=== PATIENT | female | born 1955 | race Caucasian/White ===

== ENCOUNTER 2016-04-18 19:26 | Inpatient (IN) | payer MEDICARE ==
[~2016-04-18] VITALS: Ht 167.6 cm; Wt 62.0 kg
[~2016-04-18 19:26] MED LIST: AUGM500T7 PO; FURO40TA PO; GABA250S PO; OXYC1TAB13 PO; PANT20 PO; POTA-243 PO
[2016-04-18 19:31] VITALS: BP 122/74; PULSE 98; RESP 16; TEMP 98.1; O2SAT 94
[2016-04-18 23:04] VITALS: BP 141/64; PULSE 93; RESP 25; TEMP 98.5; O2SAT 95
[2016-04-19] VITALS (18 sets, daily range): BP systolic 87–144; BP diastolic 53–75; PULSE 83–100; RESP 16–20; TEMP 96.7–98.5; O2SAT 93–100
[2016-04-19] MEDS ORDERED: RESP: ALBUTEROL 2.5 MG/IPRATROPIUM 0.5 MG NEB (SCH) INH ONE
--- NOTE | 2016-04-19 00:01 | PD ---
HPI Chief Complaint: Respiratory Symptoms Time Seen by Provider: 23:34 Travel History International Travel<30 days: No Contact w/Intl Traveler<30days: No Traveled to known affect area: No History of Present Illness HPI 61-year-old female complains of shortness of breath and increasing swelling and pain bilateral low extremity. Patient has history of chronic ulcers lesions bilateral lower leg and left foot. Patient has been seen by wound care center and personal physician and on antibiotics in the past. Patient was seen by personal physician today and antibiotics was called into a pharmacy however patient has not started on them yet. Patient states that she has increasing dyspnea on exertion the past 2 days. Patient denies any coughing congestion fever chills. Patient states that she has wheezing for the past 2 days. Patient states that she smoked for 15 years and recently quit smoking. Patient denies any history of COPD. Patient denies any chest pain. Patient denies abdominal pain. Patient denies any nausea vomiting diarrhea. PFSH Past Medical History Autoimmune Disease: Yes (VASCULITIS, CONNECTIVE TISSUE DISEASE) Anxiety: No Depression: No Heart Rhythm Problems: No Cancer: No Cardiovascular Problems: Yes (PVD, STASIS ULCERS) High Cholesterol: No Chest Pain: No Congestive Heart Failure: No Cirrhosis: Yes Cerebrovascular Accident: No Diabetes: No Diminished Hearing: No Endocrine: No Gastrointestinal Disorders: Yes GERD: Yes Genitourinary: Yes Headaches: No Hiatal Hernia: Yes Immune Disorder: Yes (RAYNAUDS, SLERODERMA, LUPUS) Kidney Stones: No Musculoskeletal: No Neurologic: Yes (neuropathy) Psychiatric: No Reproductive: No Respiratory: No Migraines: No Renal Failure: No Seizures: No Thyroid Disease: No Ulcer: No Menopausal: Yes Past Surgical History Abdominal Surgery: No Cardiac Surgery: No Genitourinary Surgery: No Thoracic Surgery: No Tonsillectomy: Yes Other Surgery: Yes (tonsilectomy) Social History Alcohol Use: No Tobacco Use: No (QUIT 02/02) Substance Use: No Allergies-Medications (Allergen,Severity, Reaction): Coded Allergies: Vancomycin (Verified Allergy, Severe, HIVES, 04/18/16) Cleocin (Verified Allergy, Intermediate, loose stool and diarrhea, ) Minipress (Verified Allergy, Mild, ANXIETY, 04/18/16) Sulfa (Verified Allergy, Unknown, UNKNOWN, 04/18/16) Rocephin (Verified Adverse Reaction, Mild, ANXIETY, 04/18/16) *MDRO Multi-Drug Resistant Organism (Verified Adverse Reaction, Unknown, 04/18/16) MRSA (leg wound) - 10/05/2015, ESBL+Klebsiella Pneumoniae (leg-01/18/16) Reported Meds & Prescriptions Reported Meds & Active Scripts Active Augmentin (Amoxicillin-Clavulanate) 500-125 mg Tab 500 Mg PO BID Reported Protonix (Pantoprazole Sodium) 20 Mg Tab 20 Mg PO DAILY Neurontin Liq (Gabapentin) 250 Mg/5 Ml Soln 600 Mg PO TID Klor-Con 10 (Potassium Chloride) 10 Meq Tab 10 Meq PO DAILY Furosemide 40 Mg Tab 40 Mg PO DAILY Roxicodone (Oxycodone HCl) 5 Mg Tab 5 Mg PO Q4H PRN Review of Systems General / Constitutional: No: Fever Eyes: No: Visual changes HENT: No: Headaches Cardiovascular: No: Chest Pain or Discomfort Respiratory: Positive: Shortness of Breath, Wheezing Gastrointestinal: No: Abdominal Pain Genitourinary: No: Dysuria Musculoskeletal: Positive: Pain Skin: No Rash Neurologic: No: Weakness Psychiatric: No: Depression Endocrine: No: Polydipsia Hematologic/Lymphatic: No: Easy Bruising Physical Exam Narrative GENERAL: Well-nourished, well-developed patient. SKIN: Warm and dry. HEAD: Normocephalic. EYES: No scleral icterus. No injection or drainage. NECK: Supple, trachea midline. No JVD or lymphadenopathy. CARDIOVASCULAR: Regular rate and rhythm without murmurs, gallops, or rubs. RESPIRATORY: Breath sounds equal bilaterally. No accessory muscle use. Patient has mild expiratory wheezes bilaterally. Few rhonchi at the bases. GASTROINTESTINAL: Abdomen soft, non-tender, nondistended. MUSCULOSKELETAL: No cyanosis, or edema. BACK: Nontender without obvious deformity. No CVA tenderness. Patient has an ulcer lesion dorsal aspect left foot. Patient has bilateral +2 pitting edema lower extremity. Patient has ulcer lesions bilateral lower extremity. Data Data Last Documented VS Vital Signs Date Time Temp Pulse Resp B/P Pulse Ox O2 Delivery O2 Flow Rate FiO2 04/18/16 23:04 98.5 93 25 141/64 95 Nasal Cannula 3 Orders Electrocardiogram (04/18/16 23:48) Complete Blood Count With Diff (04/18/16 23:48) Comprehensive Metabolic Panel (04/18/16 23:48) Creatine Kinase (Cpk) (04/18/16 23:48) Troponin I (04/18/16 23:48) B-Type Natriuretic Peptide (04/18/16 23:48) Prothrombin Time / Inr (Pt) (04/18/16 23:48) Act Partial Throm Time (Ptt) (04/18/16 23:48) Blood Culture (04/18/16 23:48) Urinalysis - C+S If Indicated (04/18/16 23:48) Chest, Single Ap (04/18/16 23:48) Iv Access Insert/Monitor (04/18/16 23:48) Ecg Monitoring (04/18/16 23:48) Oximetry (04/18/16 23:48) Albuterol-Ipratropium Neb (Duoneb Neb) (04/19/16 00:00) Us Leg Venous Doppler Bilat (04/18/16 23:48) Foot, Complete (Yni0lug) (04/18/16 23:48) Morphine Inj (Morphine Inj) (04/19/16 01:00) Ondansetron Inj (Zofran Inj) (04/19/16 01:00) Labs Laboratory Tests Test 04/18/16 23:45 White Blood Count 4.0 TH/MM3 Red Blood Count 3.39 MIL/MM3 Hemoglobin 10.5 GM/DL Hematocrit 31.9 % Mean Corpuscular Volume 94.2 FL Mean Corpuscular Hemoglobin 31.0 PG Mean Corpuscular Hemoglobin 33.0 % Concent Red Cell Distribution Width 17.5 % Platelet Count 124 TH/MM3 Mean Platelet Volume 8.1 FL Neutrophils (%) (Auto) 69.0 % Lymphocytes (%) (Auto) 14.7 % Monocytes (%) (Auto) 8.0 % Eosinophils (%) (Auto) 7.5 % Basophils (%) (Auto) 0.8 % Neutrophils # (Auto) 2.8 TH/MM3 Lymphocytes # (Auto) 0.6 TH/MM3 Monocytes # (Auto) 0.3 TH/MM3 Eosinophils # (Auto) 0.3 TH/MM3 Basophils # (Auto) 0.0 TH/MM3 CBC Comment DIFF FINAL Differential Comment Prothrombin Time 12.7 SEC Prothromb Time International 1.1 RATIO Ratio Activated Partial 29.4 SEC Thromboplast Time Sodium Level 140 MEQ/L Potassium Level 3.3 MEQ/L Chloride Level 105 MEQ/L Carbon Dioxide Level 26.9 MEQ/L Anion Gap 8 MEQ/L Blood Urea Nitrogen 17 MG/DL Creatinine 0.84 MG/DL Estimat Glomerular Filtration 69 ML/MIN Rate Random Glucose 112 MG/DL Calcium Level 7.8 MG/DL Total Bilirubin 0.8 MG/DL Aspartate Amino Transf 33 U/L (AST/SGOT) Alanine Aminotransferase 18 U/L (ALT/SGPT) Alkaline Phosphatase 101 U/L Total Creatine Kinase 66 U/L Troponin I LESS THAN 0.02 NG/ML B-Type Natriuretic Peptide 223 PG/ML Total Protein 6.2 GM/DL Albumin 2.4 GM/DL [facility] Medical Decision Making Medical Screen Exam Complete: Yes Emergency Medical Condition: Yes Interpretation(s) 2 31 AM. Last Impressions Lower Extremity Ultrasound 04/18/162347 Signed Impressions: Service Date/Time: Tuesday, April 19, 2016 00:31 - CONCLUSION: No DVT in either lower extremity. Floyd Naqvi MD Foot X-Ray 04/18/162347 Signed Impressions: Service Date/Time: March 23:56 - CONCLUSION: Diffuse soft tissue swelling. No periosteal reaction or fracture. Possible linear foreign body along the great toe Floyd Naqvi MD Chest X-Ray 04/18/162347 Signed Impressions: Service Date/Time: March 23:49 - CONCLUSION: 1. Left upper lobe and right lower lobe airspace disease likely pneumonia. 2. Small right pleural effusion. Floyd Naqvi MD 2 32 AM. CBC CBC 4.0. Hemoglobin 10.5 hematocrit 31.9. Platelet 124. Normal differential. Potassium 3.3. Cardiac enzymes are normal. BNP 223. Differential Diagnosis Differential diagnosis including acute exacerbation of reactive airway disease, bronchitis, pneumonia, PE, pneumothorax, ulcers low extremity, cellulitis, osteomyelitis, DVT. Narrative Course 61-year-old female with short of breath, wheezing, bilateral lower extremity edema with ulcers lesions. History of chronic ulcers lesions lower extremity. Levaquin 750 mg IV given. Morphine 4 mg IV. Zofran 4 mg IV. Albuterol with Atrovent unit dose treatment times one. Diagnosis Primary Impression: Pneumonia Qualified Code: J18.9 - Pneumonia of both lungs due to infectious organism, unspecified part of lung Additional Impression: Foot ulcer Qualified Code: L97.521 - Foot ulcer, left, limited to breakdown of skin Admitting Information Admitting Physician Requests: Admit John Carroll MD Apr 19, 2016 00:01
[2016-04-19 00:16] LABS: AUTOMATED NEUTROPHIL # 2.8 TH/MM3 (1.8-7.7); BASOPHIL % 0.8 % (0.0-2.0); EOSINOPHIL # 0.3 TH/MM3 (0-0.4); EOSINOPHIL % 7.5 % (0.0-4.0); HEMATOCRIT 31.9 % (35.0-46.0); HEMO FLAGS DIFF FINAL; LYMPH % 14.7 % (9.0-44.0); LYMPHOCYTE # 0.6 TH/MM3 (1.0-4.8); MEAN CELL VOLUME 94.2 FL (80.0-100.0); PLATELET COUNT 124 TH/MM3 (150-450); RED BLOOD COUNT 3.39 MIL/MM3 (4.00-5.30); RED CELL DISTRIBUTION WIDTH 17.5 % (11.6-17.2)
--- NOTE | 2016-04-19 00:21 | RADRPT ---
EXAM DATE/TIME: 04/18/2016 23:49 [facility] COMPARISON: CHEST SINGLE AP, October 05, 2015, 17:44. INDICATIONS : Pt short of breath x 2 days. MEDICAL HISTORY : None. SURGICAL HISTORY : Esophogeal dilation ENCOUNTER: Initial ACUITY: 2 days PAIN SCORE: 6/10 LOCATION: Bilateral chest FINDINGS: A single view of the chest demonstrates left upper lobe and right lower lobe consolidation. Small rig ht pleural effusion. Heart is large. The cardiomediastinal contours are unremarkable. Osseous struct ures are intact. CONCLUSION: 1. Left upper lobe and right lower lobe airspace disease likely pneumonia. 2. Small right pleural effusion. Folyd Naqvi MD on April 19, 2016 at 0:18 Board Certified Radiologist. This report was verified electronically.
--- NOTE | 2016-04-19 00:24 | RADRPT ---
EXAM DATE/TIME: 04/18/2016 23:56 [facility] COMPARISON: No previous studies available for comparison. INDICATIONS : Pt has ulcer to posterior foot. MEDICAL HISTORY : Hypertension. Cirrhosis. Peripheral vascular disease. Crest syndrome. SURGICAL HISTORY : Tonsillectomy. Esophageal varices banding x 2. Vein stripping. Right Lower ENCOUNTER: Initial ACUITY: 1 month PAIN SCORE: 8/10 LOCATION: Left FOOT FINDINGS: Three view examination of the left foot demonstrates soft tissue swelling without dislocation or frac ture. The tarsal bones appear intact. The interphalangeal and metatarsophalangeal joints are intac t. The calcaneus is intact. Bony mineralization is normal. CONCLUSION: Diffuse soft tissue swelling. No periosteal reaction or fracture. Possible linear foreign body along the great toe Floyd Naqvi MD on April 19, 2016 at 0:19 Board Certified Radiologist. This report was verified electronically.
[2016-04-19 00:32] LABS: APTT (PATIENT) 29.4 SEC (24.3-30.1); INTERNATIONAL NORMALIZED RATIO 1.1 RATIO; PROTHROMBIN TIME - PATIENT 12.7 SEC (9.8-11.6)
[2016-04-19] MEDS ORDERED: ONDANSETRON HCL 4 MG/2 ML VIAL IV PUSH ONE (01:00)
[2016-04-19] MEDS ORDERED: MORPHINE SULFATE 4 MG/ML INJ IV PUSH ONE (01:00)
--- NOTE | 2016-04-19 01:02 | RADRPT ---
EXAM DATE/TIME: 04/19/2016 00:31 [facility] COMPARISON: No previous studies available for comparison. INDICATIONS : Bilateral leg pain and edema. MEDICAL HISTORY : Gastroesophageal reflux disease. Peripheral vascular disease. Cirrhosis. Raynaud's. lupus. vasculit is. SURGICAL HISTORY : Tonsillectomy. Esophageal varices surgery. ENCOUNTER: Subsequent ACUITY: >1 year PAIN SCORE: 5/10 LOCATION: Bilateral legs. TECHNIQUE: Venous ultrasound of the left and right leg was performed from the inguinal ligament to the proximal calf. Real-time, color Doppler and spectral tracing, compression and augmentation techniques were us ed. FINDINGS: RIGHT LEG: There is normal compressibility of the deep venous system from the inguinal region to the proximal ca lf. No echogenic clot is seen in the lumen of the common femoral, femoral, popliteal, and posterior tibial veins. There is a normal response of the venous system to proximal and distal augmentation an d respiration. Edematous soft tissues are seen. LEFT LEG: There is normal compressibility of the deep venous system from the inguinal region to the proximal ca lf. No echogenic clot is seen in the lumen of the common femoral, femoral, popliteal, and posterior tibial veins. There is a normal response of the venous system to proximal and distal augmentation an d respiration. Edematous soft tissues are seen. CONCLUSION: No DVT in either lower extremity. Floyd Naqvi MD on April 19, 2016 at 1:00 Board Certified Radiologist. This report was verified electronically.
[2016-04-19 01:03] LABS: ANION GAP 8 MEQ/L (5-15); AST (GOT) 33 U/L (15-37); BICARBONATE 26.9 MEQ/L (21.0-32.0); BLOOD UREA NITROGEN 17 MG/DL (7-18); CHLORIDE 105 MEQ/L (98-107); GLOMERULAR FILTRATION RATE 69 ML/MIN (>89); POTASSIUM 3.3 MEQ/L (3.5-5.1); SODIUM (NA) 140 MEQ/L (136-145)
[2016-04-19 01:07] LABS: ALKALINE PHOSPHATASE 101 U/L (45-117); ALT (GPT) 18 U/L (10-53); TOTAL BILIRUBIN ADULT 0.8 MG/DL (0.2-1.0)
[2016-04-19 01:08] LABS: CREATINE KINASE 66 U/L (26-192)
[2016-04-19] MEDS ORDERED: POTASSIUM CHLORIDE 20 MEQ CONTROLLED RELEASE TAB PO ONE ×2 (02:45→08:00)
[2016-04-19] MEDS ORDERED: LEVOFLOXACIN 750 MG PREMIX INJ 150 ML IV ONE (02:45)
[2016-04-19] MEDS ORDERED: ONDANSETRON HCL 4 MG/2 ML VIAL IV PRN (03:00)
[2016-04-19] MEDS ORDERED: ACETAMINOPHEN 325 MG TAB PO PRN ×2 (03:00→07:45)
[2016-04-19] MEDS ORDERED: SODIUM CHLORIDE 0.9% FLUSH 5 ML FLUSH IVF PRN (03:00)
[2016-04-19] MEDS: MORPHINE SULFATE 4 MG/ML INJ IV PUSH PRN ×4 (04:20→22:02)
[2016-04-19] MEDS ORDERED: ONDANSETRON HCL 4 MG/2 ML VIAL IVP PRN (07:45)
[2016-04-19] MEDS ORDERED: NALOXONE HCL 0.4 MG/ML AMP IV PRN (07:45)
[2016-04-19] MEDS ORDERED: ZOLPIDEM TARTRATE 5 MG TAB PO PRN (07:45)
[2016-04-19] MEDS ORDERED: MAGNESIUM HYDROXIDE SUSP 30 ML CUP PO PRN (07:45)
[2016-04-19] MEDS ORDERED: SENNOSIDES 8.6 MG TAB PO PRN (07:45)
[2016-04-19] MEDS ORDERED: BISACODYL 10 MG SUPP PR PRN (07:45)
[2016-04-19] MEDS ORDERED: ENALAPRILAT 2.5 MG/2 ML VIAL IV PUSH PRN (08:00)
[2016-04-19] MEDS: ENOXAPARIN SODIUM 40 MG/0.4 ML SYRINGE SQ SCH (08:00)
[2016-04-19] MEDS ORDERED: cloNIDine HCL 0.1 MG TAB PO PRN (08:00)
[2016-04-19] MEDS ORDERED: LORazepam 0.5 MG TAB PO PRN (08:00)
--- NOTE | 2016-04-19 08:06 | HHI.HP ---
History of Present Illness Primary Care Physician Steven Navarro MD Admission Diagnosis pneumonia. Foot ulcer Diagnoses: (1) Severe sepsis (2) Pneumonia (3) Foot ulcer (4) History of esophageal varices (5) Pancytopenia (6) Peripheral vascular disease (7) Hypertension (8) Protein-calorie malnutrition, moderate (9) Noncompliance (10) Cirrhosis (11) Peripheral neuropathy (12) Lupus (systemic lupus erythematosus) (13) CREST (calcinosis, Raynaud's phenomenon, esophageal dysfunction, sclerodactyly, telangiectasia) (14) Venous stasis ulcer (15) Cellulitis of right lower extremity (16) Tobacco use (17) Anemia History of Present Illness 61 Y CF, INCREASED EDEMA RECENTLY. RECENTLY QUIT SMOKING. HAS HAD GENERAL DECLINE OVER THE LAST YEAR. NUMEROUS HOSPITAL ADMISSIONS. OUTPT WOUND CLINIC PT OF DR FELDMAN. DEVELOPED INCREASED CONGESTION THIS WEEK WELL. PT FELT MALAISED AND PRESENTED TO THE ER. I WAS CALLED BY THE ER MD FOR ADMISSION DUE TO PNA AND CELLULITIS OF THE LEGS. Sepsis Criteria SIRS Criteria (2 or more): Heart rate over 90 Sepsis Criteria (SIRS+source): Infect source susp/known Severe Sepsis (+one): Hypotension Criteria Outcome: Meets severe sepsis criteria Review of Systems Constitutional: COMPLAINS OF: Fatigue Other -14 POINT ROS EXCEPT ABOVE. Past Family Social History Allergies: Coded Allergies: Vancomycin (Verified Allergy, Severe, HIVES, 04/18/16) Cleocin (Verified Allergy, Intermediate, loose stool and diarrhea, ) Minipress (Verified Allergy, Mild, ANXIETY, 04/18/16) Sulfa (Verified Allergy, Unknown, UNKNOWN, 04/18/16) Rocephin (Verified Adverse Reaction, Mild, ANXIETY, 04/18/16) *MDRO Multi-Drug Resistant Organism (Verified Adverse Reaction, Unknown, 04/18/16) MRSA (leg wound) - 10/05/2015, ESBL+Klebsiella Pneumoniae (leg-01/18/16) Past Medical History CREST LUPUS Past Surgical History NC Reported Medications Current Medications Medications (Trade) Dose Ordered Sig/Jose M Route Start Time Stop Time Status Last Admin (Zofran Inj) 4 mg Q6H PRN IV 04/19/16 03:00 (Tylenol) 650 mg Q4H PRN PO 04/19/16 03:00 (NS Flush) 2 ml BID IVF 04/19/16 09:00 (NS Flush) 2 ml UNSCH PRN IVF 04/19/16 03:00 (Morphine Inj) 4 mg Q3H PRN IV PUSH 04/19/16 03:00 04/19/16 04:20 (Pneumovax-23 Inj) 25 mcg ONCE ONCE IM 04/20/16 10:00 04/20/16 10:01 Family History NC Social History CIGS, NO E/D; DISABLED Physical Exam Vital Signs Vital Signs Date Time Temp Pulse Resp B/P Pulse Ox O2 Delivery O2 Flow Rate FiO2 04/19/16 04:36 99 04/19/16 04:28 16 04/19/16 04:13 98.2 95 16 109/61 94 04/19/16 03:31 94 18 100 Nasal Cannula 2 04/19/16 03:30 98.5 94 18 101/62 100 Room Air 2 04/19/16 03:20 18 04/19/16 03:18 96 Nasal Cannula 2 04/19/16 03:04 95 Nasal Cannula 3.00 04/19/16 02:00 92 18 97/57 96 Nasal Cannula 2 04/19/16 01:00 96 18 112/60 94 Room Air 04/19/16 00:00 94 18 144/75 97 Nasal Cannula 3 04/18/16 23:04 98.5 93 25 141/64 95 Nasal Cannula 3 04/18/16 19:31 98.1 98 16 122/74 94 Room Air Physical Exam GENERAL: This is a well-nourished, well-developed patient, in no apparent distress. SKIN: No rashes, ecchymoses or lesions. Cool and dry. HEAD: Atraumatic. Normocephalic. No temporal or scalp tenderness. EYES: Pupils equal round and reactive. Extraocular motions intact. No scleral icterus. No injection or drainage. ENT: Nose without bleeding, purulent drainage or septal hematoma. Throat without erythema, tonsillar hypertrophy or exudate. Uvula midline. Airway patent. NECK: Trachea midline. No JVD or lymphadenopathy. Supple, nontender, no meningeal signs. CARDIOVASCULAR: Regular rate and rhythm without murmurs, gallops, or rubs. RESPIRATORY: Clear to auscultation. Breath sounds equal bilaterally. No wheezes , rales, or rhonchi. GASTROINTESTINAL: Abdomen soft, non-tender, nondistended. No hepato-splenomegaly , or palpable masses. No guarding. MUSCULOSKELETAL: Extremities without clubbing, cyanosis, or edema. No joint tenderness, effusion, or edema noted. No calf tenderness. Negative Homans sign bilaterally. NEUROLOGICAL: Awake and alert. Cranial nerves II through XII intact. Motor and sensory grossly within normal limits. Five out of 5 muscle strength in all muscle groups. Normal speech. Laboratory Laboratory Tests Test 04/18/16 23:45 White Blood Count 4.0 Red Blood Count 3.39 Hemoglobin 10.5 Hematocrit 31.9 Mean Corpuscular Volume 94.2 Mean Corpuscular Hemoglobin 31.0 Mean Corpuscular Hemoglobin 33.0 Concent Red Cell Distribution Width 17.5 Platelet Count 124 Mean Platelet Volume 8.1 Neutrophils (%) (Auto) 69.0 Lymphocytes (%) (Auto) 14.7 Monocytes (%) (Auto) 8.0 Eosinophils (%) (Auto) 7.5 Basophils (%) (Auto) 0.8 Neutrophils # (Auto) 2.8 Lymphocytes # (Auto) 0.6 Monocytes # (Auto) 0.3 Eosinophils # (Auto) 0.3 Basophils # (Auto) 0.0 CBC Comment DIFF FINAL Differential Comment Prothrombin Time 12.7 Prothromb Time International 1.1 Ratio Activated Partial 29.4 Thromboplast Time Sodium Level 140 Potassium Level 3.3 Chloride Level 105 Carbon Dioxide Level 26.9 Anion Gap 8 Blood Urea Nitrogen 17 Creatinine 0.84 Estimat Glomerular Filtration 69 Rate Random Glucose 112 Calcium Level 7.8 Total Bilirubin 0.8 Aspartate Amino Transf 33 (AST/SGOT) Alanine Aminotransferase 18 (ALT/SGPT) Alkaline Phosphatase 101 Total Creatine Kinase 66 Troponin I LESS THAN 0.02 B-Type Natriuretic Peptide 223 Total Protein 6.2 Albumin 2.4 Date/Time Procedure Status Source Growth 04/19/16 00:10 Aerobic Blood Culture Received Blood Peripheral Pending 04/19/16 00:10 Anaerobic Blood Culture Received Blood Peripheral Pending Result Diagram: 04/18/16234404/18/162344 Imaging Last 48 hours Impressions Lower Extremity Ultrasound 04/18/162347 Signed Impressions: Service Date/Time: Tuesday, April 19, 2016 00:31 - CONCLUSION: No DVT in either lower extremity. Floyd Naqvi MD Foot X-Ray 04/18/162347 Signed Impressions: Service Date/Time: March 23:56 - CONCLUSION: Diffuse soft tissue swelling. No periosteal reaction or fracture. Possible linear foreign body along the great toe Floyd Naqvi MD Chest X-Ray 04/18/168 Signed Impressions: Service Date/Time: March 23:49 - CONCLUSION: 1. Left upper lobe and right lower lobe airspace disease likely pneumonia. 2. Small right pleural effusion. Floyd Naqvi MD Assessment and Plan Problem List: (1) Severe sepsis Status: Resolved (2) Pneumonia Status: Acute (3) Cellulitis of right lower extremity Status: Acute (4) Lupus (systemic lupus erythematosus) Status: Acute (5) Azotemia Status: Acute (6) History of esophageal varices Status: Acute (7) Fever Status: Resolved (8) Pancytopenia Status: Chronic (9) Peripheral vascular disease Status: Acute (10) Hypertension Status: Acute (11) Protein-calorie malnutrition, moderate Status: Acute (12) Noncompliance Status: Acute (13) Cirrhosis Status: Chronic (14) Peripheral neuropathy Status: Acute (15) CREST (calcinosis, Raynaud's phenomenon, esophageal dysfunction, sclerodactyly, telangiectasia) Status: Chronic (16) Venous stasis ulcer Status: Acute (17) Noncompliance w/medication treatment due to intermit use of medication Status: Acute (18) Foot ulcer Status: Acute (19) Tobacco use Status: Acute (20) Anemia Status: Acute Assessment and Plan IV ABX IV STEROIDS IV LASIX DUONEBS BLOOD CULTURES WOUND CULTURES PER DR FELDMAN, HAD CULTURES YESTERDAY PER PATIENT AT WOUND CLINIC WOUND CONSULT DR FELDMAN CONSULT LOVENOX 40 QD FOR PROPHYLAXIS K REPLACEMENT FOR HYPOKALEMIA INPT ADMIT FOR THE ABOVE DX AND PLAN. EXPECT 4 D INPT STAY. PT WOULD LIKELY PASS W/O INPT ADMIT. EXPECT DC [facility]. Problem Qualifiers (1) Pneumonia: Qualified Code: J18.9 - Pneumonia of both lungs due to infectious organism, unspecified part of lung (2) Foot ulcer: Qualified Code: L97.521 - Foot ulcer, left, limited to breakdown of skin Steven Navarro MD Apr 19, 2016 08:06
[2016-04-19] MEDS: RESP: ALBUTEROL 2.5 MG/IPRATROPIUM 0.5 MG NEB (SCH) NEB ×4 (08:44→20:31)
[2016-04-19] MEDS ORDERED: SODIUM CHLORIDE 0.9% FLUSH 5 ML FLUSH IVF SCH (09:00)
[2016-04-19] MEDS: GABAPENTIN 300 MG CAP PO SCH ×3 (09:02→17:44)
[2016-04-19] MEDS: PANTOPRAZOLE SOD 20 MG DELAYED RELEASE TAB PO SCH (09:02)
[2016-04-19] MEDS: FUROSEMIDE 40 MG/4 ML VIAL IV PUSH SCH ×2 (09:02→17:44)
[2016-04-19] MEDS: SODIUM CHLORIDE 0.9% FLUSH 5 ML FLUSH FLUSH SCH ×2 (09:02→21:03)
[2016-04-19] MEDS: POTASSIUM CHLORIDE 20 MEQ CONTROLLED RELEASE TAB PO SCH (09:09)
--- NOTE | 2016-04-19 10:11 | PD.WOU.CON ---
Patient Intake Chief Complaint Bilateral lower extremity wounds Consult Requested by Dr. Navarro Reason for Consult Treatment of lower extremity wounds. Primary Care Physician Steven Navarro MD History of Present Illness Patient is a 61-year-old female well-known to me from previous wound center visits. Patient had been out of town for a number of weeks and missed multiple wound center visits. Last week I cultured her and grew out pseudomonas resistant to the quinolones, enterococcus avium and staph aureus. Patient presented to the wound center yesterday and respiratory distress. Tried to convince her to go to the emergency room at that time. She refused and presented at 2:00 this morning to the ED. Patient has a history of crest syndrome and rheumatoid arthritis. She also has cirrhosis with fluid retention. Coded Allergies: Vancomycin (Verified Allergy, Severe, HIVES, 04/18/16) Cleocin (Verified Allergy, Intermediate, loose stool and diarrhea, ) Minipress (Verified Allergy, Mild, ANXIETY, 04/18/16) Sulfa (Verified Allergy, Unknown, UNKNOWN, 04/18/16) Rocephin (Verified Adverse Reaction, Mild, ANXIETY, 04/18/16) *MDRO Multi-Drug Resistant Organism (Verified Adverse Reaction, Unknown, 04/18/16) MRSA (leg wound) - 10/05/2015, ESBL+Klebsiella Pneumoniae (leg-01/18/16) Preferred Language to Discuss: [place] Barriers to Learning: None Teaching Method: Discussion Vital Signs Date Time Temp Pulse Resp B/P Pulse Ox O2 Delivery O2 Flow Rate FiO2 04/19/16 08:52 95 21 04/19/16 08:43 98/58 04/19/16 08:21 98.0 94 18 87/55 93 04/19/16 08:00 91 04/19/16 04:36 99 04/19/16 04:28 16 04/19/16 04:13 98.2 95 16 109/61 94 04/19/16 03:31 94 18 100 Nasal Cannula 2 04/19/16 03:30 98.5 94 18 101/62 100 Room Air 2 04/19/16 03:20 18 04/19/16 03:18 96 Nasal Cannula 2 04/19/16 03:04 95 Nasal Cannula 3.00 04/19/16 02:00 92 18 97/57 96 Nasal Cannula 2 04/19/16 01:00 96 18 112/60 94 Room Air 04/19/16 00:00 94 18 144/75 97 Nasal Cannula 3 04/18/16 23:04 98.5 93 25 141/64 95 Nasal Cannula 3 04/18/16 19:31 98.1 98 16 122/74 94 Room Air Pain scale used: 0-10 numeric scale Pain score: 8 Medications Current Medications Albuterol/ Ipratropium (Duoneb Neb) 1 ampule ONCE ONCE INH Last administered on 04/18/16at 23:56; Start 04/19/16 at 00:00; Stop 04/19/16 at 00:01; Status DC Morphine Sulfate (Morphine Inj) 4 mg ONCE ONCE IV PUSH Last administered on at 01:09; Start 04/19/16 at 01:00; Stop 04/19/16 at 01:01; Status DC Ondansetron HCl (Zofran Inj) 4 mg ONCE ONCE IV PUSH Last administered on 04/19at 01:09; Start 04/19/16 at 01:00; Stop 04/19/16 at 01:01; Status DC Potassium Chloride 20 meq 20 meq ONCE ONCE PO Last administered on 04/19/16at 03:12; Start 04/19/16 at 02:45; Stop 04/19/16 at 02:46; Status DC Levofloxacin/ Dextrose (Levaquin 750 Mg Premix Inj) 150 ml @ 100 mls/hr ONCE ONCE IV Last administered on 04/19/16at 03:12; Start 04/19/16 at 02:45; Stop 04/19/16 at 04:14; Status DC Ondansetron HCl (Zofran Inj) 4 mg Q6H PRN IV NAUSEA OR VOMITING; Start at 03:00; Stop 04/19/16 at 07:54; Status DC Acetaminophen (Tylenol) 650 mg Q4H PRN PO Temp>101F, Headache; Start 04/19/16 at 03:00; Stop 04/19/16 at 07:54; Status DC IV Flush (NS Flush) 2 ml BID IVF ; Start 04/19/16 at 09:00; Stop 04/19/16 at 09:00; Status DC IV Flush (NS Flush) 2 ml UNSCH PRN IVF FLUSH AFTER USING IV ACCESS; Start at 03:00; Stop 04/19/16 at 07:54; Status DC Morphine Sulfate (Morphine Inj) 4 mg Q3H PRN IV PUSH PAIN Last administered on 04/19/16at 04:20; Start 04/19/16 at 03:00 Pneumococcal Polyvalent Vaccine (Pneumovax-23 Inj) 25 mcg ONCE ONCE IM ; Start 04/20/16 at 10:00; Stop 04/20/16 at 10:01 IV Flush (NS Flush) 2 ml UNSCH PRN FLUSH FLUSH AFTER USING IV ACCESS; Start at 07:45 IV Flush (NS Flush) 2 ml BID FLUSH Last administered on 04/19/16at 09:02; Start 04/19/16 at 09:00 Acetaminophen (Tylenol) 650 mg Q4H PRN PO TEMP > 100.4; Start 04/19/16 at 07: 45 Ondansetron HCl (Zofran Inj) 4 mg Q6H PRN IVP NAUSEA OR VOMITING; Start at 07:45 Bisacodyl (Dulcolax Supp) 10 mg DAILY PRN SD CONSTIPATION; Start 04/19/16 at 07:45 Magnesium Hydroxide (Milk Of Magnesia Liq) 30 ml Q12H PRN PO CONSTIPATION; Start 04/19/16 at 07:45 Sennosides (Senokot) 17.2 mg Q12H PRN PO CONSTIPATION; Start 04/19/16 at 07:45 Zolpidem Tartrate (Ambien) 5 mg HS PRN PO INSOMNIA; Start 04/19/16 at 07:45 Enoxaparin Sodium (Lovenox Inj) 40 mg Q24H SQ ; Start 04/19/16 at 08:00 Naloxone HCl (Narcan Inj) 0.4 mg UNSCH PRN IV SEE LABEL COMMENTS; Start at 07:45 Gabapentin (Neurontin) 600 mg TID PO Last administered on 04/19/16at 09:02; Start 04/19/16 at 09:00 Oxycodone HCl (Roxicodone) 5 mg Q4H PRN PO PAIN SCALE 4 TO 10; Start 04/19/16 at 08:00 Pantoprazole Sodium (Protonix) 20 mg DAILY PO Last administered on 04/19/16at 09:02; Start 04/19/16 at 09:00 Albuterol/ Ipratropium (Duoneb Neb) 1 ampule QID NEB NEB Last administered on 04/19/16at 08:44; Start 04/19/16 at 08:00 Lorazepam (Ativan) 0.5 mg Q8H PRN PO SEVERE ANXIETY OR AGITATION; Start at 08:00 Clonidine (Catapres) 0.1 mg Q6H PRN PO SBP>160, DBP>90; Start 04/19/16 at 08: 00 Enalaprilat (Vasotec Inj) 2.5 mg Q6H PRN IV PUSH SBP> OR = 180, DBP> OR = 100; Start 04/19/16 at 08:00 Furosemide (Lasix Inj) 40 mg BID@09,18 IV PUSH Last administered on 04/19/16at 09:02; Start 04/19/16 at 09:00 Methylprednisolone Sodium Succinate (SoluMEDROL INJ) 80 mg Q6HR IV PUSH ; Start 04/19/16 at 12:00 Potassium Chloride (KCl) 40 meq ONCE ONCE PO Last administered on 04/19/16at 09:09; Start 04/19/16 at 08:00; Stop 04/19/16 at 08:01; Status DC Potassium Chloride 20 meq 20 meq DAILY PO Last administered on 04/19/16at 09:09 ; Start 04/19/16 at 09:00 Levofloxacin/ Dextrose (Levaquin 750 Mg Premix Inj) 150 ml @ 100 mls/hr Q24H IV ; Start 04/20/16 at 03:00 Past, Family & Social History Past Medical History Gastrointestinal: REPORTS HX OF: GERD, Liver disease (Cirrhosis of the liver- 5 years), Other GI history (Enlarged Spleen) Gynecologic: REPORTS HX OF: Other psychology tech history (prolapsed uterus) Musculoskeletal: REPORTS HX OF: Rheumatoid arthritis Cancer/Hematology: REPORTS HX OF: Other cancer/hematology Infectious disease: REPORTS HX OF: Chickenpox, Measles, Mumps Integumentary: REPORTS HX OF: Other integumentary hx (Scleroderma, Raynaud's Disease) Neurologic: REPORTS HX OF: Peripheral neuropathy Psychiatric: REPORTS HX OF: Anxiety, Depression Additional past medical hx Burt syndrome Past Surgical History HEENT: REPORTS HX OF: Tonsillectomy, Other throat surgery (Esophageal Varicies) Gynecologic: DENIES HX OF: Hysterectomy Breast: DENIES HX OF: Mastectomy, bilateral, Mastectomy, left, Mastectomy, right Family Medical History Patient History: Cardiac arrhythmia G8 FATHER Kidney disease G8 FATHER Substance Use Substance use: Denies use Review of Systems Constitutional: COMPLAINS OF: Pain Cardiovascular: COMPLAINS OF: Swelling legs / ankles Respiratory: COMPLAINS OF: Difficulty breathing Wound Assessment Any changes since last week?: Hospitilization Vascular Assessment R Dorsails Pedis: Doppler L Dorsails Pedis: Doppler R Posterior Tibial: Doppler L Posterior Tibial: Doppler Extremities Evaluation: Edema Right, Edema Left Wound Information - Wound One Wound Location: Right lateral leg Wound Type: Venous Disease Classification: FT- full thickness Wound Length: 3.0 cm Wound Width: 1.0 cm Wound Depth: 0.2 cm Exudate: Low Exudate Type: Serosanguineous Debridement: No Fibrin Amount: Mild Granulation Tissue Color: [place] Granulation Tissue Texture: Firm Exposed: No exposed bone, muscle, tendon Eschar: No Odor: No Periwound Appearance: FINDINGS: Maceration Dressings: Maxorb Extra AG Wound Two Wound Location: Left dorsal foot Wound Type: Venous Disease Classification: FT- full thickness Wound Length: 2.3 cm Wound Width: 1.4 cm Wound Depth: 0.2 cm Exudate: Low Exudate Type: Serosanguineous Debridement: No Fibrin Amount: Mild Granulation Tissue Color: [place] Granulation Tissue Texture: Firm Exposed: No exposed bone, muscle, tendon Eschar: No Odor: No Periwound Appearance: FINDINGS: Normal Dressings: Maxorb Extra AG Wound Three Wound Location: Left anterior leg Physical Exam General appearance: comfortable Nutritional status: overweight Orientation: alert and oriented x3 Skin: FINDINGS: normal color Hair: normal Head: normocephalic/atraumatic Eyes: PERRL Ears, nose, mouth, throat: no ear deformities Hearing, right ear: normal Hearing, left ear: normal Hearing test method: whispered voice Neck: FINDINGS: normal Chest appearance: normal Respiratory effort: FINDINGS: normal Abdomen: FINDINGS: normal appearance exam deferred: Yes Rectal exam deferred: Yes Edema: Left lower extremity: 2+, pitting, ankle, leg Right lower extremity: 2+, pitting, ankle, leg Cranial nerves II-XII intact: Yes Mental status: grossly normal Affect: normal Judgment: normal Lab and Radiology Results Laboratory Laboratory Tests Test 04/18/16 23:45 White Blood Count 4.0 TH/MM3 Red Blood Count 3.39 MIL/MM3 Hemoglobin 10.5 GM/DL Hematocrit 31.9 % Mean Corpuscular Volume 94.2 FL Mean Corpuscular Hemoglobin 31.0 PG Mean Corpuscular Hemoglobin 33.0 % Concent Red Cell Distribution Width 17.5 % Platelet Count 124 TH/MM3 Mean Platelet Volume 8.1 FL Neutrophils (%) (Auto) 69.0 % Lymphocytes (%) (Auto) 14.7 % Monocytes (%) (Auto) 8.0 % Eosinophils (%) (Auto) 7.5 % Basophils (%) (Auto) 0.8 % Neutrophils # (Auto) 2.8 TH/MM3 Lymphocytes # (Auto) 0.6 TH/MM3 Monocytes # (Auto) 0.3 TH/MM3 Eosinophils # (Auto) 0.3 TH/MM3 Basophils # (Auto) 0.0 TH/MM3 CBC Comment DIFF FINAL Differential Comment Laboratory Tests Test 04/18/16 23:45 Sodium Level 140 MEQ/L Potassium Level 3.3 MEQ/L Chloride Level 105 MEQ/L Carbon Dioxide Level 26.9 MEQ/L Anion Gap 8 MEQ/L Blood Urea Nitrogen 17 MG/DL Creatinine 0.84 MG/DL Estimat Glomerular Filtration 69 ML/MIN Rate Random Glucose 112 MG/DL Calcium Level 7.8 MG/DL Total Bilirubin 0.8 MG/DL Aspartate Amino Transf 33 U/L (AST/SGOT) Alanine Aminotransferase 18 U/L (ALT/SGPT) Alkaline Phosphatase 101 U/L Total Creatine Kinase 66 U/L Troponin I LESS THAN 0.02 NG/ML B-Type Natriuretic Peptide 223 PG/ML Total Protein 6.2 GM/DL Albumin 2.4 GM/DL Microbiology Date/Time Procedure Status Source Growth 04/19/16 00:00 Aerobic Blood Culture Received Blood Peripheral Pending 04/19/16 00:00 Anaerobic Blood Culture Received Blood Peripheral Pending 04/19/16 00:10 Aerobic Blood Culture Received Blood Peripheral Pending 04/19/16 00:10 Anaerobic Blood Culture Received Blood Peripheral Pending Radiology Last Impressions Lower Extremity Ultrasound 04/18/16 [id number] Signed Impressions: Service Date/Time: Tuesday, April 19, 2016 00:31 - CONCLUSION: No DVT in either lower extremity. Floyd Naqvi MD Foot X-Ray 04/18/168 Signed Impressions: Service Date/Time: March 23:56 - CONCLUSION: Diffuse soft tissue swelling. No periosteal reaction or fracture. Possible linear foreign body along the great toe Floyd Naqvi MD Chest X-Ray 04/18/168 Signed Impressions: Service Date/Time: March 23:49 - CONCLUSION: 1. Left upper lobe and right lower lobe airspace disease likely pneumonia. 2. Small right pleural effusion. Floyd Naqvi MD Assessment/Plan Problem List: (1) Foot ulcer Status: Chronic (2) Cirrhosis Status: Chronic (3) Peripheral neuropathy Status: Chronic (4) Lupus (systemic lupus erythematosus) Status: Chronic (5) CREST (calcinosis, Raynaud's phenomenon, esophageal dysfunction, sclerodactyly, telangiectasia) Status: Chronic (6) Venous stasis ulcer Status: Chronic Additional Plans & Procedures PLAN: Continue Maxorb extra AG dressings to leg and foot wounds. No baths or showers. Consulted ID because of the resistant pseudomonas and other bacteria. We'll continue to follow during this admission. I will follow up once discharged in the wound center. Problem Qualifiers (1) Foot ulcer: Qualified Code: L97.522 - Foot ulcer, left, with fat layer exposed (2) Cirrhosis: Qualified Code: K74.60 - Cirrhosis of liver with ascites, unspecified hepatic cirrhosis type (3) Peripheral neuropathy: Qualified Code: G60.3 - Idiopathic progressive neuropathy (4) Lupus (systemic lupus erythematosus): Qualified Code: M32.13 - Systemic lupus erythematosus with lung involvement, unspecified SLE type Floyd Rankin DPM Apr 19, 2016 10:11
[2016-04-19] MEDS: methylPREDNISolone SOD SUCC 40 MG/1 ML VIAL IV PUSH SCH ×2 (11:32→17:44)
[2016-04-19 12:34] LABS: BACTERIA, URINE OCC /hpf; BLOOD, URINE SMALL (NEG); GLUCOSE,URINE NEG (NEG); KETONE, URINE NEG (NEG); MUCUS URINE FEW /lpf (OCC); NITRITE,URINE NEG (NEG); PH, URINE 6.5 (5.0-8.5); SQUAMOUS EPITHELIAL CELL URINE 7 /hpf (0-5); URINE COLOR YELLOW (YELLW/STRAW)
[2016-04-19 12:35] LABS: COMMENT (UR) CULT NOT INDICATED; CULTURE IF INDICATED CULT NOT INDICATED
--- NOTE | 2016-04-19 13:34 | EKG ---
Date Performed: 04/18/2016 Time Performed: 23:51:07 PTAGE: 61 years EKG: Sinus rhythm NORMAL ECG Since PREVIOUS TRACING , no significant change noted PREVIOUS TRACIN10/05/2015 23.44 DOCTOR: Oracio Campbell Interpretating Date/Time 04/19/2016 13:31:44
--- NOTE | 2016-04-19 16:13 | PD.CONS ---
History of Present Illness Service Infectious disease Consult Requested By Dr. Rankin Reason for Consult Evaluate patient with leg wounds with multiple bacteria in the wound culture Primary Care Physician Steven Navarro MD Diagnoses: History of Present Illness Patient seen and examined. Records reviewed. Patient is a 61-year-old female, has complex medical history, with history of scleroderma, crest syndrome, and chronic bilateral lower extremity edema. She has been going to the wound care center for care of bilateral lower extremity wounds. Recently she started having problem with some congestion, although she is really not coughing. She gets short of breath which is chronic, but has been more pronounced since she has been more congested. She denies any fever or chills or sweats. She denies any chest pain, no nausea or vomiting or any urinary complaints. In the emergency room chest x-ray showed evidence of pneumonia. There was also mention of cellulitis. Dr. Rankin the wound care provider saw the patient as well, and he requested infectious disease consultation to make recommendation on antibiotics. Patient has not been febrile. Her WBC is normal. Her chest x-ray showing left upper and right upper lobe consolidation. Review of Systems Constitutional: DENIES: Fever, Chills, Night Sweats Eyes: DENIES: Eye pain Ears, nose, mouth, throat: DENIES: Nasal discharge, Oral lesions, Throat pain, Ear Pain, Sinus Pain Respiratory: COMPLAINS OF: Shortness of breath, DENIES: Cough Cardiovascular: DENIES: Chest pain, Palpitations Gastrointestinal: COMPLAINS OF: Abdominal pain, DENIES: Nausea, Vomiting, Difficulty Swallowing Genitourinary: COMPLAINS OF: Abnormal vaginal bleeding, Dysuria Musculoskeletal: COMPLAINS OF: Joint Swelling, DENIES: Joint pain Integumentary: DENIES: Rash, Nipple discharge Neurologic: DENIES: Headache Psychiatric: DENIES: Confusion Past Family Social History Allergies: Coded Allergies: Vancomycin (Verified Allergy, Severe, HIVES, 04/18/16) Cleocin (Verified Allergy, Intermediate, loose stool and diarrhea, ) Minipress (Verified Allergy, Mild, ANXIETY, 04/18/16) Sulfa (Verified Allergy, Unknown, UNKNOWN, 04/18/16) Rocephin (Verified Adverse Reaction, Mild, ANXIETY, 04/18/16) *MDRO Multi-Drug Resistant Organism (Verified Adverse Reaction, Unknown, ESBL, MRSA, 04/19/16) MRSA (leg wound) - 10/05/2015, ESBL+Klebsiella Pneumoniae (leg-01/18/16) Past Medical History Pancytopenia Scleroderma, lupus CREST syndrome Cirrhosis, , esophageal varices Chronic venous stasis ulcer Peripheral neuropathy Splenomegaly Peripheral vascular disease Hypertension Vasculitis Past Surgical History None Active Ordered Medications Tylenol Albuterol Dulcolax Clonidine Vasotec Lovenox Lasix Neurontin Levaquin Ativan MOM Solu-Medrol Morphine Zofran Protonix Oxycodone Potassium Senokot Ambien Social History Smokes about a pack day of cigarettes Denies alcohol abuse Denies illicit drug use Physical Exam Vital Signs Vital Signs Date Time Temp Pulse Resp B/P Pulse Ox O2 Delivery O2 Flow Rate FiO2 04/19/16 12:09 98.5 100 18 102/57 98 04/19/16 08:52 95 21 04/19/16 08:43 98/58 04/19/16 08:21 98.0 94 18 87/55 93 04/19/16 08:00 91 04/19/16 04:36 99 04/19/16 04:28 16 04/19/16 04:13 98.2 95 16 109/61 94 04/19/16 03:31 94 18 100 Nasal Cannula 2 04/19/16 03:30 98.5 94 18 101/62 100 Room Air 2 04/19/16 03:20 18 04/19/16 03:18 96 Nasal Cannula 2 04/19/16 03:04 95 Nasal Cannula 3.00 04/19/16 02:00 92 18 97/57 96 Nasal Cannula 2 04/19/16 01:00 96 18 112/60 94 Room Air 04/19/16 00:00 94 18 144/75 97 Nasal Cannula 3 04/18/16 23:04 98.5 93 25 141/64 95 Nasal Cannula 3 04/18/16 19:31 98.1 98 16 122/74 94 Room Air Physical Exam GENERAL: This is a thin, well-developed female, looks chronically ill appearing, in no apparent distress. SKIN: Cool and dry. No geeralized rash. Has some spider nevi face and upper chest HEAD: Atraumatic. Normocephalic. No temporal or scalp tenderness. EYES: [place] conjunctivae. Pupils equal round and reactive. Extraocular motions intact. No scleral icterus. No injection or drainage. ENT: Nose without bleeding, or purulent drainage. Moist oral mucosa. Throat without erythema, or exudate. Uvula midline. Airway patent. NECK: Trachea midline. No JVD or lymphadenopathy. Supple, nontender, no meningeal signs. CARDIOVASCULAR: Regular rate and rhythm without murmurs, gallops, or rubs. RESPIRATORY: Clear to auscultation. Breath sounds equal bilaterally. No wheezes , rales, or rhonchi. GASTROINTESTINAL: Abdomen distended, with large umbilical hernia, has diffuse tenderness, no guarding or rebound. Bowel sounds are present and normoactive. MUSCULOSKELETAL: Extremities without clubbing, or cyanosis. Has BLE pitting edema. Has ulcer on R lat ankle about 3 cm x 1 cm size with some fibrin, and some erythema around, has serous drainage, no odor.Has another ulcer on L dorsum of foot about 2 cm x 1 cm, with some serous drianage no redness. No calf tenderness. Negative Homans sign bilaterally. NEUROLOGICAL: Awake and alert. Cranial nerves II through XII intact. Motor and sensory grossly within normal limits. Five out of 5 muscle strength in all muscle groups. Normal speech. PSYCH: Appropriate affect, calm and cooperative Laboratory Laboratory Tests Test 04/18/16 04/19/16 23:45 11:11 White Blood Count 4.0 Red Blood Count 3.39 Hemoglobin 10.5 Hematocrit 31.9 Mean Corpuscular Volume 94.2 Mean Corpuscular Hemoglobin 31.0 Mean Corpuscular Hemoglobin 33.0 Concent Red Cell Distribution Width 17.5 Platelet Count 124 Mean Platelet Volume 8.1 Neutrophils (%) (Auto) 69.0 Lymphocytes (%) (Auto) 14.7 Monocytes (%) (Auto) 8.0 Eosinophils (%) (Auto) 7.5 Basophils (%) (Auto) 0.8 Neutrophils # (Auto) 2.8 Lymphocytes # (Auto) 0.6 Monocytes # (Auto) 0.3 Eosinophils # (Auto) 0.3 Basophils # (Auto) 0.0 CBC Comment DIFF FINAL Differential Comment Prothrombin Time 12.7 Prothromb Time International 1.1 Ratio Activated Partial 29.4 Thromboplast Time Sodium Level 140 Potassium Level 3.3 Chloride Level 105 Carbon Dioxide Level 26.9 Anion Gap 8 Blood Urea Nitrogen 17 Creatinine 0.84 Estimat Glomerular Filtration 69 Rate Random Glucose 112 Calcium Level 7.8 Total Bilirubin 0.8 Aspartate Amino Transf 33 (AST/SGOT) Alanine Aminotransferase 18 (ALT/SGPT) Alkaline Phosphatase 101 Total Creatine Kinase 66 Troponin I LESS THAN 0.02 B-Type Natriuretic Peptide 223 Total Protein 6.2 Albumin 2.4 Urine Color YELLOW Urine Turbidity HAZY Urine pH 6.5 Urine Specific [place] 1.015 Urine Protein TRACE Urine Glucose (UA) NEG Urine Ketones NEG Urine Occult Blood SMALL Urine Nitrite NEG Urine Bilirubin NEG Urine Urobilinogen 2.0 Urine Leukocyte Esterase LARGE Urine RBC 13 Urine WBC 4 Urine Squamous Epithelial 7 Cells Urine Bacteria OCC Urine Mucus FEW Microscopic Urinalysis Comment CULT NOT INDICATED Date/Time Procedure Status Source Growth 04/19/16 00:10 Aerobic Blood Culture Received Blood Peripheral Pending 04/19/16 00:10 Anaerobic Blood Culture Received Blood Peripheral Pending Result Diagram: 04/18/16 [id number] Imaging RADIOLOGY STUDIES/FILMS REVIEWED Lower Extremity Ultrasound 04/18/162347 Signed Impressions: Service Date/Time: Tuesday, April 19, 2016 00:31 - CONCLUSION: No DVT in either lower extremity. Floyd Naqvi MD Foot X-Ray 04/18/162347 Signed Impressions: Service Date/Time: March 23:56 - CONCLUSION: Diffuse soft tissue swelling. No periosteal reaction or fracture. Possible linear foreign body along the great toe Floyd Naqvi MD Chest X-Ray 04/18/162347 Signed Impressions: Service Date/Time: March 23:49 - CONCLUSION: 1. Left upper lobe and right lower lobe airspace disease likely pneumonia. 2. Small right pleural effusion. Floyd Naqvi MD Assessment and Plan Assessment and Plan IMPRESSION CAP, patient with underlying CTD Chronic LE edema, with stasis ulcers (+) C/S PSAE,, Enterococcus and MSSA, mild cellulitis Hx CREST, Lupus, scleroderma Liver cirrhosis RECOMMENDATION Zosyn levaquin Urine for legionella and pneumococcal Ag Follow C/S Wound care per podiatry Monitor progress Edema control I will determine course of Abx once work-up completed I will follow along with you Thank you for this consultation Discussed Condition With Explained plan to the patient Jaylyn Hair MD Apr 19, 2016 16:13
[2016-04-19] MEDS: PIPERACIL-TAZO 4.5 GM PREMIX 100 ML IV SCH ×2 (17:37→23:44)
[2016-04-20] VITALS (9 sets, daily range): BP systolic 92–126; BP diastolic 53–69; PULSE 84–102; RESP 16–20; TEMP 96.1–98.6; O2SAT 92–98
[2016-04-20] MEDS: methylPREDNISolone SOD SUCC 40 MG/1 ML VIAL IV PUSH SCH ×5 (01:23→23:16)
[2016-04-20] MEDS: LEVOFLOXACIN 750 MG PREMIX INJ 150 ML IV SCH (03:43)
[2016-04-20 05:11] LABS: AUTOMATED NEUTROPHIL # 1.3 TH/MM3 (1.8-7.7); BASOPHIL % 0.1 % (0.0-2.0); EOSINOPHIL % 0.2 % (0.0-4.0); HEMATOCRIT 26.3 % (35.0-46.0); LYMPH % 14.7 % (9.0-44.0); LYMPHOCYTE # 0.2 TH/MM3 (1.0-4.8); MEAN CELL VOLUME 92.1 FL (80.0-100.0); MEAN CORPUSCULAR HEMOGLOBIN 30.4 PG (27.0-34.0); MEAN CORPUSCULAR HGB CONC 33.1 % (32.0-36.0); MONO % 2.9 % (0.0-8.0); NEUT % 82.1 % (16.0-70.0); PLATELET COUNT 105 TH/MM3 (150-450); RED BLOOD COUNT 2.86 MIL/MM3 (4.00-5.30); RED CELL DISTRIBUTION WIDTH 16.9 % (11.6-17.2); WHITE BLOOD COUNT 1.5 TH/MM3 (4.0-11.0)
[2016-04-20 05:20] LABS: HEMO FLAGS AUTO DIFF
[2016-04-20] MEDS: PIPERACIL-TAZO 4.5 GM PREMIX 100 ML IV SCH ×4 (05:22→23:16)
[2016-04-20 05:32] LABS: BICARBONATE 24.2 MEQ/L (21.0-32.0); POTASSIUM 3.8 MEQ/L (3.5-5.1)
[2016-04-20] MEDS: ENOXAPARIN SODIUM 40 MG/0.4 ML SYRINGE SQ SCH (08:00)
[2016-04-20] MEDS: RESP: ALBUTEROL 2.5 MG/IPRATROPIUM 0.5 MG NEB (SCH) NEB ×4 (08:06→20:17)
[2016-04-20] MEDS: SODIUM CHLORIDE 0.9% FLUSH 5 ML FLUSH FLUSH SCH ×2 (08:20→21:34)
[2016-04-20] MEDS: FUROSEMIDE 40 MG/4 ML VIAL IV PUSH SCH ×2 (08:22→17:13)
[2016-04-20] MEDS: PANTOPRAZOLE SOD 20 MG DELAYED RELEASE TAB PO SCH (08:22)
[2016-04-20] MEDS: GABAPENTIN 300 MG CAP PO SCH ×3 (08:23→17:17)
[2016-04-20] MEDS: POTASSIUM CHLORIDE 20 MEQ CONTROLLED RELEASE TAB PO SCH (08:23)
[2016-04-20 08:59] LABS: BANDS 7 % (0-6); NEUTROPHIL # MANUAL DIFF 1.4 TH/MM3 (1.8-7.7); POLYS (SEG NEUTROPHILS) 84 % (16-70); WBC DIFF SAMPLE 100
[2016-04-20 09:00] LABS: ACANTHOCYTES 1+ (NORMAL); OVALOCYTES 1+ (NORMAL); PLATELET ESTIMATE SMEAR LOW (NORMAL); PLATELET MORPHOLOGY NORMAL (NORMAL); SCAN/DIFF FINAL DIFF MANUAL; TEARDROP RBCS 1+ (NORMAL)
[2016-04-20] MEDS ORDERED: PNEUMOCOCCAL POLYVALENT INJ 25 MCG/0.5 ML SYR IM ONE (10:00)
--- NOTE | 2016-04-20 10:30 | HHI.FPPN ---
Subjective Remarks C/O COUGH C/O WEAKNESS C/O FEET AND ANKLE PAIN B D/W RN Objective Vitals Vital Signs Date Time Temp Pulse Resp B/P Pulse Ox O2 Delivery O2 Flow Rate FiO2 04/20/16 09:00 84 04/20/16 08:06 95 04/20/16 08:00 96.2 93 17 126/69 92 04/20/16 04:00 97.7 84 18 108/67 95 04/20/16 00:00 97.0 97 16 92/53 98 04/20/16 00:00 97.0 97 16 92/53 98 04/19/16 23:45 18 04/19/16 23:44 18 04/19/16 21:00 83 04/19/16 20:32 99 04/19/16 20:00 98.1 83 20 90/53 96 04/19/16 20:00 98.1 83 18 90/53 96 04/19/16 14:15 96.7 93 16 93/55 96 04/19/16 12:09 98.5 100 18 102/57 98 I/O 04/19/16 04/19/16 04/19/16 04/20/16 04/20/16 04/20/16 06:59 14:59 22:59 06:59 14:59 22:59 Intake Total 100 ml 980 ml Output Total 400 ml 200 ml Balance -400 ml 100 ml 780 ml Intake Oral 600 ml IV Total 100 ml 380 ml Output Urine Total 400 ml 200 ml # Bowel Movements 1 0 Result Diagram: 04/20/16 0416 04/20/16415 Objective Remarks GENERAL: SKIN: Warm and dry. HEAD: Atraumatic. Normocephalic. EYES: Pupils equal and round. No scleral icterus. No injection or drainage. ENT: No nasal bleeding or discharge. Mucous membranes pink and moist. NECK: Trachea midline. No JVD. CARDIOVASCULAR: Regular rate and rhythm. RESPIRATORY: B RONCHI, HARSH COUGH GASTROINTESTINAL: Abdomen soft, non-tender, nondistended. Hepatic and splenic margins not palpable. MUSCULOSKELETAL: BLE EDEMA, WRAPPED, NEUROLOGICAL: Awake and alert. No obvious cranial nerve deficits. Motor grossly within normal limits. Five out of 5 muscle strength in the arms and legs. Normal speech. PSYCHIATRIC: Appropriate mood and affect; insight and judgment normal. Medications and IVs Current Medications Medications (Trade) Dose Ordered Sig/Jose M Route Start Time Stop Time Status Last Admin (Morphine Inj) 4 mg Q3H PRN IV PUSH 04/19/16 03:00 04/19/16 22:02 (NS Flush) 2 ml UNSCH PRN FLUSH 04/19/16 07:45 (NS Flush) 2 ml BID FLUSH 04/19/16 09:00 04/20/16 08:20 (Tylenol) 650 mg Q4H PRN PO 04/19/16 07:45 (Zofran Inj) 4 mg Q6H PRN IVP 04/19/16 07:45 (Dulcolax Supp) 10 mg DAILY PRN [place] 04/19/16 07:45 (Milk Of Magnesia Liq) 30 ml Q12H PRN PO 04/19/16 07:45 (Senokot) 17.2 mg Q12H PRN PO 04/19/16 07:45 (Ambien) 5 mg HS PRN PO 04/19/16 07:45 (Lovenox Inj) 40 mg Q24H SQ 04/19/16 08:00 (Narcan Inj) 0.4 mg UNSCH PRN IV 04/19/16 07:45 (Neurontin) 600 mg TID PO 04/19/16 09:00 04/20/16 08:23 (Roxicodone) 5 mg Q4H PRN PO 04/19/16 08:00 04/20/16 08:38 (Protonix) 20 mg DAILY PO 04/19/16 09:00 04/20/16 08:22 (Ativan) 0.5 mg Q8H PRN PO 04/19/16 08:00 (Catapres) 0.1 mg Q6H PRN PO 04/19/16 08:00 (Vasotec Inj) 2.5 mg Q6H PRN IV PUSH 04/19/16 08:00 (Lasix Inj) 40 mg BID@09,18 IV PUSH 04/19/16 09:00 04/20/16 08:22 (SoluMEDROL INJ) 80 mg Q6HR IV PUSH 04/19/16 12:00 04/20/16 05:22 Potassium Chloride 20 meq 20 meq DAILY PO 04/19/16 09:00 04/20/16 08:23 Levofloxacin/ Dextrose 150 ml @ 100 mls/hr Q24H IV 04/20/16 03:00 04/20/16 03:43 (Zosyn 4.5 Gm Premix) 100 ml @ 200 mls/hr Q6H IV 04/19/16 17:00 04/20/16 05:22 A/P Problem List: (1) Severe sepsis Status: Resolved (2) Cellulitis of right lower extremity Status: Acute (3) Pneumonia Status: Acute (4) Azotemia Status: Acute (5) Anemia Status: Acute (6) Cirrhosis Status: Chronic (7) Pancytopenia Status: Chronic (8) Peripheral vascular disease Status: Acute (9) Hypertension Status: Acute (10) CREST (calcinosis, Raynaud's phenomenon, esophageal dysfunction, sclerodactyly, telangiectasia) Status: Chronic (11) Protein-calorie malnutrition, moderate Status: Acute (12) Noncompliance Status: Acute (13) History of esophageal varices Status: Acute (14) Noncompliance w/medication treatment due to intermit use of medication Status: Acute (15) Peripheral neuropathy Status: Chronic (16) Foot ulcer Status: Chronic (17) Lupus (systemic lupus erythematosus) Status: Chronic (18) Venous stasis ulcer Status: Chronic (19) Tobacco use Status: Acute Plan: PLAN: IV ABX IV STEROIDS IV LASIX DUONEBS BLOOD CULTURES WOUND CONSULT DR FELDMAN CONSULT LOVENOX 40 QD FOR PROPHYLAXIS K REPLACEMENT FOR HYPOKALEMIA Problem Qualifiers (1) Pneumonia: Qualified Code: J18.9 - Pneumonia of both lungs due to infectious organism, unspecified part of lung (2) Cirrhosis: Qualified Code: K74.60 - Cirrhosis of liver with ascites, unspecified hepatic cirrhosis type (3) Peripheral neuropathy: Qualified Code: G60.3 - Idiopathic progressive neuropathy (4) Foot ulcer: Qualified Code: L97.522 - Foot ulcer, left, with fat layer exposed (5) Lupus (systemic lupus erythematosus): Qualified Code: M32.13 - Systemic lupus erythematosus with lung involvement, unspecified SLE type Steven Navarro MD Apr 20, 2016 10:30
[2016-04-20] MEDS ORDERED: FILGRASTIM 300 MCG/ML VIAL SQ ONE (14:00)
--- NOTE | 2016-04-20 14:53 | PD.WOU.PN ---
Patient Intake Chief Complaint Bilateral lower extremity wounds Consult Requested by Reason for Consult Evaluation and treatment of bilateral lower extremity wounds Primary Care Physician Steven Navarro MD History of Present Illness Patient is a 61-year-old female who I have been following in the wound center with nonhealing wounds of the right lateral leg and the left dorsal foot. Patient was out of town for 3-4 weeks and was not seen. When she presented this week she was feeling sick and week. Requested she go to the ER right away. Patient waited till the next morning. I have ordered Maxorb extra AG dressings to her feet. Appreciate infectious disease consult. Patient Pseudomonas in the wound center from cultures of her wounds were resistant to the oral quinolones. Coded Allergies: Vancomycin (Verified Allergy, Severe, HIVES, 04/18/16) Cleocin (Verified Allergy, Intermediate, loose stool and diarrhea, ) Minipress (Verified Allergy, Mild, ANXIETY, 04/18/16) Sulfa (Verified Allergy, Unknown, UNKNOWN, 04/18/16) Rocephin (Verified Adverse Reaction, Mild, ANXIETY, 04/18/16) *MDRO Multi-Drug Resistant Organism (Verified Adverse Reaction, Unknown, ESBL, MRSA, 04/19/16) MRSA (leg wound) - 10/05/2015, ESBL+Klebsiella Pneumoniae (leg-01/18/16) Preferred Language to Discuss: [place] Barriers to Learning: None Teaching Method: Discussion Vital Signs Date Time Temp Pulse Resp B/P Pulse Ox O2 Delivery O2 Flow Rate FiO2 04/20/16 12:00 96.1 87 16 111/65 95 04/20/16 09:38 18 04/20/16 09:00 84 04/20/16 08:06 95 04/20/16 08:00 96.2 93 17 126/69 92 04/20/16 04:00 97.7 84 18 108/67 95 04/20/16 00:00 97.0 97 16 92/53 98 04/20/16 00:00 97.0 97 16 92/53 98 04/19/16 23:44 18 04/19/16 21:00 83 04/19/16 20:32 99 04/19/16 20:00 98.1 83 20 90/53 96 04/19/16 20:00 98.1 83 18 90/53 96 Pain scale used: 0-10 numeric scale Pain score: 6 Medications Current Medications Albuterol/ Ipratropium (Duoneb Neb) 1 ampule ONCE ONCE INH Last administered on 04/18/16at 23:56; Start 04/19/16 at 00:00; Stop 04/19/16 at 00:01; Status DC Morphine Sulfate (Morphine Inj) 4 mg ONCE ONCE IV PUSH Last administered on at 01:09; Start 04/19/16 at 01:00; Stop 04/19/16 at 01:01; Status DC Ondansetron HCl (Zofran Inj) 4 mg ONCE ONCE IV PUSH Last administered on 04/19at 01:09; Start 04/19/16 at 01:00; Stop 04/19/16 at 01:01; Status DC Potassium Chloride 20 meq 20 meq ONCE ONCE PO Last administered on 04/19/16at 03:12; Start 04/19/16 at 02:45; Stop 04/19/16 at 02:46; Status DC Levofloxacin/ Dextrose (Levaquin 750 Mg Premix Inj) 150 ml @ 100 mls/hr ONCE ONCE IV Last administered on 04/19/16at 03:12; Start 04/19/16 at 02:45; Stop 04/19/16 at 04:14; Status DC Ondansetron HCl (Zofran Inj) 4 mg Q6H PRN IV NAUSEA OR VOMITING; Start at 03:00; Stop 04/19/16 at 07:54; Status DC Acetaminophen (Tylenol) 650 mg Q4H PRN PO Temp>101F, Headache; Start 04/19/16 at 03:00; Stop 04/19/16 at 07:54; Status DC IV Flush (NS Flush) 2 ml BID IVF ; Start 04/19/16 at 09:00; Stop 04/19/16 at 09:00; Status DC IV Flush (NS Flush) 2 ml UNSCH PRN IVF FLUSH AFTER USING IV ACCESS; Start at 03:00; Stop 04/19/16 at 07:54; Status DC Morphine Sulfate (Morphine Inj) 4 mg Q3H PRN IV PUSH PAIN Last administered on 04/19/16at 22:02; Start 04/19/16 at 03:00 Pneumococcal Polyvalent Vaccine (Pneumovax-23 Inj) 25 mcg ONCE ONCE IM Last administered on 04/20/16at 11:09; Start 04/20/16 at 10:00; Stop 04/20/16 at 10 :01; Status DC IV Flush (NS Flush) 2 ml UNSCH PRN FLUSH FLUSH AFTER USING IV ACCESS; Start at 07:45 IV Flush (NS Flush) 2 ml BID FLUSH Last administered on 04/20/16at 08:20; Start 04/19/16 at 09:00 Acetaminophen (Tylenol) 650 mg Q4H PRN PO TEMP > 100.4; Start 04/19/16 at 07: 45 Ondansetron HCl (Zofran Inj) 4 mg Q6H PRN IVP NAUSEA OR VOMITING; Start at 07:45 Bisacodyl (Dulcolax Supp) 10 mg DAILY PRN [place] CONSTIPATION; Start 04/19/16 at 07:45 Magnesium Hydroxide (Milk Of Magnesia Liq) 30 ml Q12H PRN PO CONSTIPATION; Start 04/19/16 at 07:45 Sennosides (Senokot) 17.2 mg Q12H PRN PO CONSTIPATION; Start 04/19/16 at 07:45 Zolpidem Tartrate (Ambien) 5 mg HS PRN PO INSOMNIA; Start 04/19/16 at 07:45 Enoxaparin Sodium (Lovenox Inj) 40 mg Q24H SQ ; Start 04/19/16 at 08:00 Naloxone HCl (Narcan Inj) 0.4 mg UNSCH PRN IV SEE LABEL COMMENTS; Start at 07:45 Gabapentin (Neurontin) 600 mg TID PO Last administered on 04/20/16at 14:16; Start 04/19/16 at 09:00 Oxycodone HCl (Roxicodone) 5 mg Q4H PRN PO PAIN SCALE 4 TO 10 Last administered on 04/20/16at 14:19; Start 04/19/16 at 08:00 Pantoprazole Sodium (Protonix) 20 mg DAILY PO Last administered on 04/20/16at 08:22; Start 04/19/16 at 09:00 Albuterol/ Ipratropium (Duoneb Neb) 1 ampule QID NEB NEB Last administered on 04/20/16at 12:13; Start 04/19/16 at 08:00 Lorazepam (Ativan) 0.5 mg Q8H PRN PO SEVERE ANXIETY OR AGITATION; Start at 08:00 Clonidine (Catapres) 0.1 mg Q6H PRN PO SBP>160, DBP>90; Start 04/19/16 at 08: 00 Enalaprilat (Vasotec Inj) 2.5 mg Q6H PRN IV PUSH SBP> OR = 180, DBP> OR = 100; Start 04/19/16 at 08:00 Furosemide (Lasix Inj) 40 mg BID@09,18 IV PUSH Last administered on 04/20/16at 08:22; Start 04/19/16 at 09:00 Methylprednisolone Sodium Succinate (SoluMEDROL INJ) 80 mg Q6HR IV PUSH Last administered on 04/20/16at 11:05; Start 04/19/16 at 12:00 Potassium Chloride (KCl) 40 meq ONCE ONCE PO Last administered on 04/19/16at 09:09; Start 04/19/16 at 08:00; Stop 04/19/16 at 08:01; Status DC Potassium Chloride 20 meq 20 meq DAILY PO Last administered on 04/20/16at 08:23 ; Start 04/19/16 at 09:00 Levofloxacin/ Dextrose 150 ml @ 100 mls/hr Q24H IV Last administered on at 03:43; Start 04/20/16 at 03:00 Piperacillin Sod/ Tazobactam Sod (Zosyn 4.5 Gm Premix) 100 ml @ 200 mls/hr Q6H IV Last administered on 04/20/16at 11:06; Start 04/19/16 at 17:00 Filgrastim (Neupogen Inj) 300 mcg ONCE ONCE SQ Last administered on at 14:41; Start 04/20/16 at 14:00; Stop 04/20/16 at 14:14; Status DC Past, Family & Social History Past Medical History PFSH Reviewed: Yes Gastrointestinal: REPORTS HX OF: GERD, Liver disease (Cirrhosis of the liver- 5 years), Other GI history (Enlarged Spleen) Gynecologic: REPORTS HX OF: Other obgyn nurse history (prolapsed uterus) Musculoskeletal: REPORTS HX OF: Rheumatoid arthritis Cancer/Hematology: REPORTS HX OF: Other cancer/hematology Infectious disease: REPORTS HX OF: Chickenpox, Measles, Mumps Integumentary: REPORTS HX OF: Other integumentary hx (Scleroderma, Raynaud's Disease) Neurologic: REPORTS HX OF: Peripheral neuropathy Psychiatric: REPORTS HX OF: Anxiety, Depression Additional past medical hx Burt syndrome Past Surgical History HEENT: REPORTS HX OF: Tonsillectomy, Other throat surgery (Esophageal Varicies) Gynecologic: DENIES HX OF: Hysterectomy Breast: DENIES HX OF: Mastectomy, bilateral, Mastectomy, left, Mastectomy, right Family Medical History Patient History: Cardiac arrhythmia G8 FATHER Kidney disease G8 FATHER Substance Use Substance use: Denies use Review of Systems Notes Changes in her 14 point review of systems exam since she was last seen Constitutional: COMPLAINS OF: Pain Cardiovascular: COMPLAINS OF: Swelling legs / ankles Wound Assessment Arrived: Walker Any changes since last week?: Hospitilization Vascular Assessment R Dorsails Pedis: Doppler L Dorsails Pedis: Doppler R Posterior Tibial: Doppler L Posterior Tibial: Doppler Sensation of Left Extremity: Diminished Sensation of Right Extremity: Diminished Extremities Evaluation: Edema Right, Edema Left Wound Information - Wound One Wound Location: Right lateral leg Wound Type: Venous Disease Classification: FT- full thickness Wound Length: 3.0 cm Wound Width: 1.0 cm Wound Depth: 0.2 cm Exudate: Low Exudate Type: Serosanguineous Debridement: No Fibrin Amount: Mild Granulation Tissue Color: [place] Granulation Tissue Texture: Firm Exposed: No exposed bone, muscle, tendon Eschar: No Odor: No Dressings: Maxorb Extra AG Wound Two Wound Location: Left dorsal foot Wound Type: Venous Disease Classification: FT- full thickness Wound Length: 2.3 cm Wound Width: 1.4 cm Wound Depth: 0.2 cm Photo Taken: No Exudate: Low Exudate Type: Serosanguineous Debridement: No Fibrin Amount: Mild Granulation Tissue Color: [place] Granulation Tissue Texture: Firm Exposed: No exposed bone, muscle, tendon Eschar: No Odor: No Periwound Appearance: FINDINGS: Normal Dressings: Maxorb Extra AG Wound Three Wound Location: Left anterior leg Lab and Radiology Results Laboratory Laboratory Tests Test 04/18/16 04/20/16 23:45 04:16 White Blood Count 4.0 TH/MM3 1.5 TH/MM3 Red Blood Count 3.39 MIL/MM3 2.86 MIL/MM3 Hemoglobin 10.5 GM/DL 8.7 GM/DL Hematocrit 31.9 % 26.3 % Mean Corpuscular Volume 94.2 FL 92.1 FL Mean Corpuscular Hemoglobin 31.0 PG 30.4 PG Mean Corpuscular Hemoglobin 33.0 % 33.1 % Concent Red Cell Distribution Width 17.5 % 16.9 % Platelet Count 124 TH/MM3 105 TH/MM3 Mean Platelet Volume 8.1 FL 8.1 FL Neutrophils (%) (Auto) 69.0 % 82.1 % Lymphocytes (%) (Auto) 14.7 % 14.7 % Monocytes (%) (Auto) 8.0 % 2.9 % Eosinophils (%) (Auto) 7.5 % 0.2 % Basophils (%) (Auto) 0.8 % 0.1 % Neutrophils # (Auto) 2.8 TH/MM3 1.3 TH/MM3 Lymphocytes # (Auto) 0.6 TH/MM3 0.2 TH/MM3 Monocytes # (Auto) 0.3 TH/MM3 0.0 TH/MM3 Eosinophils # (Auto) 0.3 TH/MM3 0.0 TH/MM3 Basophils # (Auto) 0.0 TH/MM3 0.0 TH/MM3 CBC Comment DIFF FINAL AUTO DIFF Differential Comment FINAL DIFF MANUAL Differential Total Cells 100 Counted Neutrophils % (Manual) 84 % Band Neutrophils % 7 % Lymphocytes % 6 % Monocytes % 3 % Neutrophils # (Manual) 1.4 TH/MM3 Platelet Estimate LOW Platelet Morphology Comment NORMAL Tear Drop Cells 1+ Ovalocytes 1+ Acanthocytes 1+ Laboratory Tests Test 04/18/16 04/20/16 23:45 04:16 Sodium Level 140 MEQ/L 143 MEQ/L Potassium Level 3.3 MEQ/L 3.8 MEQ/L Chloride Level 105 MEQ/L 107 MEQ/L Carbon Dioxide Level 26.9 MEQ/L 24.2 MEQ/L Anion Gap 8 MEQ/L 12 MEQ/L Blood Urea Nitrogen 17 MG/DL 19 MG/DL Creatinine 0.84 MG/DL 0.91 MG/DL Estimat Glomerular Filtration 69 ML/MIN 63 ML/MIN Rate Random Glucose 112 MG/DL 131 MG/DL Calcium Level 7.8 MG/DL 8.0 MG/DL Total Bilirubin 0.8 MG/DL Aspartate Amino Transf 33 U/L (AST/SGOT) Alanine Aminotransferase 18 U/L (ALT/SGPT) Alkaline Phosphatase 101 U/L Total Creatine Kinase 66 U/L Troponin I LESS THAN 0.02 NG/ML B-Type Natriuretic Peptide 223 PG/ML Total Protein 6.2 GM/DL Albumin 2.4 GM/DL Microbiology Date/Time Procedure Status Source Growth 04/19/16 00:00 Aerobic Blood Culture - Preliminary Resulted Blood Peripheral NO GROWTH IN 1 DAY 04/19/16 00:00 Anaerobic Blood Culture - Preliminary Resulted Blood Peripheral NO GROWTH IN 1 DAY 04/19/16 00:10 Aerobic Blood Culture - Preliminary Resulted Blood Peripheral NO GROWTH IN 1 DAY 04/19/16 00:10 Anaerobic Blood Culture - Preliminary Resulted Blood Peripheral NO GROWTH IN 1 DAY 04/19/16 21:07 Legionella Antigen - Final Complete Urine Clean Catch PRESUMPTIVE NEGATIVE FOR LEGIONELLA P... 04/19/16 21:07 Streptococcus pneumoniae Antigen (M - Final Complete Urine Clean Catch PRESUMPTIVE NEGATIVE FOR STREPTOCOCCU... Radiology Last Impressions Lower Extremity Ultrasound 04/18/162347 Signed Impressions: Service Date/Time: Tuesday, April 19, 2016 00:31 - CONCLUSION: No DVT in either lower extremity. Floyd Naqvi MD Foot X-Ray 04/18/162347 Signed Impressions: Service Date/Time: March 23:56 - CONCLUSION: Diffuse soft tissue swelling. No periosteal reaction or fracture. Possible linear foreign body along the great toe Floyd Naqvi MD Chest X-Ray 04/18/162347 Signed Impressions: Service Date/Time: March 23:49 - CONCLUSION: 1. Left upper lobe and right lower lobe airspace disease likely pneumonia. 2. Small right pleural effusion. Floyd Naqvi MD Assessment/Plan Problem List: (1) Foot ulcer Status: Chronic (2) Cirrhosis Status: Chronic (3) Peripheral neuropathy Status: Chronic (4) Lupus (systemic lupus erythematosus) Status: Chronic (5) CREST (calcinosis, Raynaud's phenomenon, esophageal dysfunction, sclerodactyly, telangiectasia) Status: Chronic (6) Venous stasis ulcer Status: Chronic Additional Plans & Procedures PLAN:. Will evaluate the patient and change her dressings tomorrow. Possible discharge early next week and I will follow her in the wound center. Discussed with the nurse Problem Qualifiers (1) Foot ulcer: Qualified Code: L97.522 - Foot ulcer, left, with fat layer exposed (2) Cirrhosis: Qualified Code: K74.60 - Cirrhosis of liver with ascites, unspecified hepatic cirrhosis type (3) Peripheral neuropathy: Qualified Code: G60.3 - Idiopathic progressive neuropathy (4) Lupus (systemic lupus erythematosus): Qualified Code: M32.13 - Systemic lupus erythematosus with lung involvement, unspecified SLE type Floyd Rankin DPM Apr 20, 2016 14:53
--- NOTE | 2016-04-20 16:33 | MB ---
cc: HAVEN FAUST M.D. DATE OF CONSULTATION April 20, [address] Navarro REASON FOR CONSULTATION Hematology consulted to render opinion guarding patient with pancytopenia. HISTORY OF PRESENT ILLNESS The patient is a very pleasant 61-year-old female with multiple medical problems including a scleroderma, CREST syndrome/lupus, peripheral vascular disease, chronic lower extremity __ ulcer, admitted with complaint of increased weakness and shortness of breath. She said that she had chest congestion. She also has chronic bilateral lower extremity wound and has been followed at the wound care clinic. On presentation chest x-ray showed left upper lobe and left lower lobe airspace disease. She was admitted for treatment of community acquired pneumonia. She also noted to have a mild cellulitis of her extremities. The patient was started on antibiotic. Yesterday her white blood cell count was 4 and this morning it trended down to 1.5. ANC is down to 1.3. She denies any fever or chills. Denies any chest pressure or palpitation. Stated her shortness of breath is improving. She has no cough. Denies any nausea, vomiting, abdominal pain. She had intermittent vaginal bleed due to uterine prolapse. She stated that she is not bleeding today. Denies any nausea, vomiting, abdominal pain. Denied any dysuria or hematuria. PAST MEDICAL HISTORY Scleroderma, CREST syndrome, liver cirrhosis, lupus, peripheral vascular disease, chronic bilateral lower extremity stasis ulcer, pancytopenia, esophageal varices, peripheral neuropathy, splenomegaly, iron deficiency, uterine prolapse, hypertension. PAST SURGICAL HISTORY Tonsillectomy, banding of the esophageal varices, vein stripping. SOCIAL HISTORY Denies tobacco or alcohol use. FAMILY HISTORY Noncontributory. ALLERGIES MINIPRES, ROCEPHIN, SULFA, VANCOMYCIN. MEDICATIONS Current medications: 1. Levofloxacin. 2. Zosyn. 3. Methylprednisolone. 4. Neurontin. 5. Protonix. 6. Lasix. 7. Potassium. 8. Lovenox. 9. DuoNeb. REVIEW OF SYSTEMS CONSTITUTIONAL: Denies any fever or chills, night sweat, weight loss. EYES: Denies any blurry vision, double vision. ENT: No mouth or voice changes. CARDIOVASCULAR: Denies chest pressure, palpitation. RESPIRATORY: As above. GI: Denies any nausea, vomiting, diarrhea, abdominal pain. : Has intermittent vaginal bleed from uterine prolapse MUSCULOSKELETAL: Chronic joint ache. HEMATOLOGY: As above. ENDOCRINE: Negative. DERMATOLOGY: As above. NEUROLOGIC: Negative. PSYCHIATRIC negative. PHYSICAL EXAMINATION VITAL SIGNS: Temperature 96.1, blood pressure 111/65, O2 saturation 95%. GENERAL: She is alert and oriented x3 in no acute distress, looks cachectic. HEENT: Atraumatic, normocephalic. Pupils equal, round and reactive light. Extraocular muscles intact. No scleral icterus. Oropharynx dry mucosa. No lesion or thrush or mucositis. NECK: No thyromegaly. No palpable masses. LYMPHATICS: No palpable cervical, clavicular, axillary, inguinal lymph node. CARDIOVASCULAR: Regular S1-S2. No murmur. LUNGS: Slight basilar crackles. ABDOMEN: Abdomen is soft, there is umbilical hernia noted, nontender. Positive bowel sounds. Spleen edge is palpable. EXTREMITIES: Extremity exam bilateral lower extremity bandages noted, bilateral extremity edema noted. SKIN: No petechiae. NEUROLOGIC: Exam nonfocal. LABORATORY DATA WBC 1.5, hemoglobin 8.7, platelet count 105. ASSESSMENT 1. Chronic pancytopenia. She has pancytopenia due to underlying autoimmune disorder, cirrhosis and splenomegaly. When she came in yesterday her white blood cell count was 4 and this morning it dropped to 1.5 with ANC of 1.3. The further drop in blood count may be due to infection as well as antibiotic use. Her hemoglobin and platelet count is about her baseline. Given the fact that she has pneumonia and cellulitis will give her a dose of Neupogen which may help with her ability to fight infection. 2. Community acquired pneumonia. She is currently on Levaquin and Zosyn. 3. Chronic bilateral lower extremity venous stasis ulcer. She also have cellulitis. She was started on antibiotic. 4. Autoimmune disorder. She has lupus, scleroderma and CREST syndrome. 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 6. Peripheral vascular disease. RECOMMENDATIONS 1. Will give her a dose of Neupogen. 2. Monitor CBC. 3. Continue antibiotic per infectious disease. Thank you Dr. Navarro for asking me to see this patient. Haven Faust MD BY/EO /1:49 PM /4:12 PM LIZETH
[2016-04-21] VITALS: BP 128/79; PULSE 95; RESP 18; TEMP 98.6; O2SAT 96
[2016-04-21] MEDS: LEVOFLOXACIN 750 MG PREMIX INJ 150 ML IV SCH (03:31)
[2016-04-21] MEDS: PIPERACIL-TAZO 4.5 GM PREMIX 100 ML IV SCH ×4 (04:46→22:28)
[2016-04-21] MEDS: methylPREDNISolone SOD SUCC 40 MG/1 ML VIAL IV PUSH SCH ×3 (04:47→20:45)
[2016-04-21 07:06] LABS: AUTOMATED NEUTROPHIL # 4.3 TH/MM3 (1.8-7.7); BASOPHIL % 0.6 % (0.0-2.0); EOSINOPHIL % 0.2 % (0.0-4.0); HEMATOCRIT 23.4 % (35.0-46.0); LYMPHOCYTE # 0.2 TH/MM3 (1.0-4.8); MEAN CELL VOLUME 92.8 FL (80.0-100.0); MEAN CORPUSCULAR HEMOGLOBIN 30.5 PG (27.0-34.0); MEAN CORPUSCULAR HGB CONC 32.9 % (32.0-36.0); MONO % 2.3 % (0.0-8.0); NEUT % 91.9 % (16.0-70.0); PLATELET COUNT 94 TH/MM3 (150-450); RED BLOOD COUNT 2.52 MIL/MM3 (4.00-5.30); RED CELL DISTRIBUTION WIDTH 17.1 % (11.6-17.2); WHITE BLOOD COUNT 4.7 TH/MM3 (4.0-11.0)
[2016-04-21 07:10] LABS: BICARBONATE 25.6 MEQ/L (21.0-32.0); POTASSIUM 3.5 MEQ/L (3.5-5.1)
[2016-04-21 07:30] LABS: HEMO FLAGS AUTO DIFF
--- NOTE | 2016-04-21 07:38 | HHI.FPPN ---
Subjective Remarks C/O COUGH C/O LEG PAIN C/O WEAKNESS C/O WOUND SITE PAIN D/W RN BLEEDING FROM VAGINA PER NURSE Objective Vitals Vital Signs Date Time Temp Pulse Resp B/P Pulse Ox O2 Delivery O2 Flow Rate FiO2 04/21/16 00:00 98.6 95 18 128/79 96 04/20/16 20:17 95 21 04/20/16 20:00 98.6 102 20 101/66 95 04/20/16 16:00 96.1 93 16 104/64 96 04/20/16 15:19 18 04/20/16 12:00 96.1 87 16 111/65 95 04/20/16 09:00 84 04/20/16 08:06 95 04/20/16 08:00 96.2 93 17 126/69 92 I/O 04/20/16 04/20/16 04/20/16 04/21/16 04/21/16 04/21/16 06:59 14:59 22:59 06:59 14:59 22:59 Intake Total 980 ml 900 ml 440 ml 540 ml Output Total 200 ml 300 ml 300 ml Balance 780 ml 900 ml 140 ml 240 ml Intake Oral 600 ml 900 ml 240 ml 240 ml IV Total 380 ml 200 ml 300 ml Output Urine Total 200 ml 300 ml 300 ml # Voids 5 # Bowel Movements 0 2 2 0 Result Diagram: 04/21/1661604/21/16616 Objective Remarks GENERAL: SKIN: Warm and dry. HEAD: Atraumatic. Normocephalic. EYES: Pupils equal and round. No scleral icterus. No injection or drainage. ENT: No nasal bleeding or discharge. Mucous membranes pink and moist. NECK: Trachea midline. No JVD. CARDIOVASCULAR: Regular rate and rhythm. RESPIRATORY: B RONCHI, HARSH COUGH GASTROINTESTINAL: Abdomen soft, non-tender, nondistended. Hepatic and splenic margins not palpable. MUSCULOSKELETAL: BLE EDEMA, WRAPPED, NEUROLOGICAL: Awake and alert. No obvious cranial nerve deficits. Motor grossly within normal limits. Five out of 5 muscle strength in the arms and legs. Normal speech. PSYCHIATRIC: Appropriate mood and affect; insight and judgment normal. Medications and IVs Current Medications Medications (Trade) Dose Ordered Sig/Jose M Route Start Time Stop Time Status Last Admin (Morphine Inj) 4 mg Q3H PRN IV PUSH 04/19/16 03:00 04/19/16 22:02 (NS Flush) 2 ml UNSCH PRN FLUSH 04/19/16 07:45 (NS Flush) 2 ml BID FLUSH 04/19/16 09:00 04/20/16 08:20 (Tylenol) 650 mg Q4H PRN PO 04/19/16 07:45 (Zofran Inj) 4 mg Q6H PRN IVP 04/19/16 07:45 (Dulcolax Supp) 10 mg DAILY PRN [place] 04/19/16 07:45 (Milk Of Magnesia Liq) 30 ml Q12H PRN PO 04/19/16 07:45 (Senokot) 17.2 mg Q12H PRN PO 04/19/16 07:45 (Ambien) 5 mg HS PRN PO 04/19/16 07:45 (Lovenox Inj) 40 mg Q24H SQ 04/19/16 08:00 (Narcan Inj) 0.4 mg UNSCH PRN IV 04/19/16 07:45 (Neurontin) 600 mg TID PO 04/19/16 09:00 04/20/16 17:17 (Roxicodone) 5 mg Q4H PRN PO 04/19/16 08:00 04/21/16 03:31 (Protonix) 20 mg DAILY PO 04/19/16 09:00 04/20/16 08:22 (Ativan) 0.5 mg Q8H PRN PO 04/19/16 08:00 (Catapres) 0.1 mg Q6H PRN PO 04/19/16 08:00 (Vasotec Inj) 2.5 mg Q6H PRN IV PUSH 04/19/16 08:00 (Lasix Inj) 40 mg BID@09,18 IV PUSH 04/19/16 09:00 04/20/16 17:13 (SoluMEDROL INJ) 80 mg Q6HR IV PUSH 04/19/16 12:00 04/21/16 04:47 Potassium Chloride 20 meq 20 meq DAILY PO 04/19/16 09:00 04/20/16 08:23 Levofloxacin/ Dextrose 150 ml @ 100 mls/hr Q24H IV 04/20/16 03:00 04/21/16 03:31 (Zosyn 4.5 Gm Premix) 100 ml @ 200 mls/hr Q6H IV 04/19/16 17:00 04/21/16 04:46 A/P Problem List: (1) Severe sepsis Status: Resolved (2) Cellulitis of right lower extremity Status: Acute (3) Pneumonia Status: Acute (4) Azotemia Status: Acute (5) Anemia Status: Acute (6) Cirrhosis Status: Chronic (7) Pancytopenia Status: Chronic (8) Peripheral vascular disease Status: Acute (9) Hypertension Status: Acute (10) CREST (calcinosis, Raynaud's phenomenon, esophageal dysfunction, sclerodactyly, telangiectasia) Status: Chronic (11) Protein-calorie malnutrition, moderate Status: Acute (12) Noncompliance Status: Acute (13) History of esophageal varices Status: Acute (14) Noncompliance w/medication treatment due to intermit use of medication Status: Acute (15) Peripheral neuropathy Status: Chronic (16) Foot ulcer Status: Chronic (17) Lupus (systemic lupus erythematosus) Status: Chronic (18) Venous stasis ulcer Status: Chronic (19) Tobacco use Status: Acute Plan: SEPSIS PNA RLE CELLULITIS BLEEDING UTERINE PROLAPSE LUPUS CREST PLAN: IV ABX IV STEROIDS IV LASIX DUONEBS BLOOD CULTURES WOUND CONSULT DR FELDMAN CONSULT LEAD TANK MECHANIC CONSULT FOR BLEEDING UTERINE PROLAPSE OUTPT, HAS FOLLOWUP IN TWO WEEKS. HOLD FOR UTERINE PROLAPSE BLEEDING LOVENOX 40 QD FOR PROPHYLAXIS K REPLACEMENT FOR HYPOKALEMIA Problem Qualifiers (1) Pneumonia: Qualified Code: J18.9 - Pneumonia of both lungs due to infectious organism, unspecified part of lung (2) Cirrhosis: Qualified Code: K74.60 - Cirrhosis of liver with ascites, unspecified hepatic cirrhosis type (3) Peripheral neuropathy: Qualified Code: G60.3 - Idiopathic progressive neuropathy (4) Foot ulcer: Qualified Code: L97.522 - Foot ulcer, left, with fat layer exposed (5) Lupus (systemic lupus erythematosus): Qualified Code: M32.13 - Systemic lupus erythematosus with lung involvement, unspecified SLE type Steven Navarro MD Apr 21, 2016 07:38
[2016-04-21 08:00] VITALS: BP 108/61; PULSE 86; RESP 18; TEMP 96.6; O2SAT 95
[2016-04-21] MEDS: GABAPENTIN 300 MG CAP PO SCH ×2 (08:44→20:45)
[2016-04-21] MEDS: SODIUM CHLORIDE 0.9% FLUSH 5 ML FLUSH FLUSH SCH ×2 (08:44→20:45)
[2016-04-21] MEDS: FUROSEMIDE 40 MG/4 ML VIAL IV PUSH SCH ×2 (08:44→17:28)
[2016-04-21] MEDS: PANTOPRAZOLE SOD 20 MG DELAYED RELEASE TAB PO SCH (08:44)
[2016-04-21] MEDS: POTASSIUM CHLORIDE 20 MEQ CONTROLLED RELEASE TAB PO SCH (08:44)
[2016-04-21] MEDS: RESP: ALBUTEROL 2.5 MG/IPRATROPIUM 0.5 MG NEB (SCH) NEB ×4 (08:53→21:53)
--- NOTE | 2016-04-21 09:30 | PD.ONC.PN ---
Subjective Subjective Remarks Afebrile overnight. Pt resting in bed, calling to order breakfast on approach. She has no complaints. Her SOB is improving. Objective Data Date Time Temp Pulse Resp B/P Pulse Ox O2 Delivery O2 Flow Rate FiO2 04/21/16 08:00 96.6 86 18 108/61 95 04/21/16 00:00 98.6 95 18 128/79 96 04/20/16 20:17 95 21 04/20/16 20:00 98.6 102 20 101/66 95 04/20/16 16:00 96.1 93 16 104/64 96 04/20/16 15:19 18 04/20/16 12:00 96.1 87 16 111/65 95 04/21/16 04/21/16 04/21/16 07:00 15:00 23:00 Intake Total 540 ml Output Total 300 ml Balance 240 ml Result Diagram: 04/21/16 0617 04/21/16 0617 Laboratory Results Laboratory Tests Test 04/21/16 06:17 White Blood Count 4.7 TH/MM3 Red Blood Count 2.52 MIL/MM3 Hemoglobin 7.7 GM/DL Hematocrit 23.4 % Mean Corpuscular Volume 92.8 FL Mean Corpuscular Hemoglobin 30.5 PG Mean Corpuscular Hemoglobin 32.9 % Concent Red Cell Distribution Width 17.1 % Platelet Count 94 TH/MM3 Mean Platelet Volume 8.4 FL Neutrophils (%) (Auto) 91.9 % Lymphocytes (%) (Auto) 5.0 % Monocytes (%) (Auto) 2.3 % Eosinophils (%) (Auto) 0.2 % Basophils (%) (Auto) 0.6 % Neutrophils # (Auto) 4.3 TH/MM3 Lymphocytes # (Auto) 0.2 TH/MM3 Monocytes # (Auto) 0.1 TH/MM3 Eosinophils # (Auto) 0.0 TH/MM3 Basophils # (Auto) 0.0 TH/MM3 CBC Comment AUTO DIFF Sodium Level 144 MEQ/L Potassium Level 3.5 MEQ/L Chloride Level 107 MEQ/L Carbon Dioxide Level 25.6 MEQ/L Anion Gap 11 MEQ/L Blood Urea Nitrogen 20 MG/DL Creatinine 1.07 MG/DL Estimat Glomerular Filtration 52 ML/MIN Rate Random Glucose 137 MG/DL Calcium Level 7.6 MG/DL Culture Results Microbiology Date/Time Procedure Status Source Growth 04/19/16 00:00 Aerobic Blood Culture - Preliminary Resulted Blood Peripheral NO GROWTH IN 1 DAY 04/19/16 00:00 Anaerobic Blood Culture - Preliminary Resulted Blood Peripheral NO GROWTH IN 1 DAY 04/19/16 00:10 Aerobic Blood Culture - Preliminary Resulted Blood Peripheral NO GROWTH IN 1 DAY 04/19/16 00:10 Anaerobic Blood Culture - Preliminary Resulted Blood Peripheral NO GROWTH IN 1 DAY 04/19/16 21:07 Legionella Antigen - Final Complete Urine Clean Catch PRESUMPTIVE NEGATIVE FOR LEGIONELLA P... 04/19/16 21:07 Streptococcus pneumoniae Antigen (M - Final Complete Urine Clean Catch PRESUMPTIVE NEGATIVE FOR STREPTOCOCCU... Administered Medications Medications (Trade) Dose Ordered Sig/Jose M Route PRN Reason Start Time Stop Time Status Last Admin Dose Admin Morphine Sulfate (Morphine Inj) 4 mg Q3H PRN IV PUSH PAIN 04/19/16 03:00 04/19/16 22:02 IV Flush (NS Flush) 2 ml BID FLUSH 04/19/16 09:00 04/21/16 08:44 Gabapentin (Neurontin) 600 mg TID PO 04/19/16 09:00 04/21/16 08:44 Oxycodone HCl (Roxicodone) 5 mg Q4H PRN PO PAIN SCALE 4 TO 10 04/19/16 08:00 04/21/16 08:50 Pantoprazole Sodium (Protonix) 20 mg DAILY PO 04/19/16 09:00 04/21/16 08:44 Furosemide (Lasix Inj) 40 mg BID@09,18 IV PUSH 04/19/16 09:00 04/21/16 08:44 Potassium Chloride 20 meq 20 meq DAILY PO 04/19/16 09:00 04/21/16 08:44 Levofloxacin/ Dextrose 150 ml @ 100 mls/hr Q24H IV 04/20/16 03:00 04/21/16 03:31 Piperacillin Sod/ Tazobactam Sod (Zosyn 4.5 Gm Premix) 100 ml @ 200 mls/hr Q6H IV 04/19/16 17:00 04/21/16 04:46 Methylprednisolone Sodium Succinate (SoluMEDROL INJ) 40 mg BID IV PUSH 04/21/16 09:00 04/21/16 08:50 Objective Remarks GENERAL: Middle aged female lying in bed in no distress. SKIN: Warm and dry. HEAD: Normocephalic. EYES: No injection or drainage. NECK: Supple, trachea midline. CARDIOVASCULAR: +S1/S2. RESPIRATORY: Lungs clear throughout. Breathing unlabored. GASTROINTESTINAL: +BS. Non tender. EXTREMITIES: BLE wrapped in tomasa wrap. NEUROLOGICAL: No obvious focal deficit. Awake, alert, and oriented x3. Assessment/Plan Problem List: (1) Pancytopenia Status: Acute Plan: 04/21/16: Hgb 7.7. WBC's 4.7 today. --Likely due to underlying autoimmune disorder, cirrhosis and splenomegaly. --Monitor. (2) Pneumonia Status: Acute Plan: --On Levaquin, Zosyn. -- ID following (3) Venous stasis ulcer Status: Chronic Plan: -- On antibiotics as she also developed an ulcer. -- ID following Assessment 61 y/o female who presented to the ER with c/o SOB and bilateral leg swelling. Plan 1. Good response to Neupogen yesterday. 2. Continue to monitor CBC. 3. Continue antibiotics per ID. 4. Supportive care. Attending Statement The exam, history, and the medical decision-making described in the above note were completed with the assistance of the mid-level provider. I reviewed and agree with the findings presented. I attest that I had a [id number] encounter with the patient on the same day, and personally performed and documented my assessment and findings in the medical record. No SOB/cough. Afebrile. WBC trended up with neupogenx1. Continue abx and monitor CBC. to follow tomorrow. Problem Qualifiers (1) Pneumonia: Qualified Code: J18.9 - Pneumonia of both lungs due to infectious organism, unspecified part of lung Madelyn Arreola Apr 21, 2016 09:30 Roddy Cutler MD Apr 21, 2016 11:31
[2016-04-21 12:00] VITALS: BP 106/64; PULSE 88; RESP 18; TEMP 96.3; O2SAT 96
--- NOTE | 2016-04-21 12:43 | PD.WOU.PN ---
Patient Intake Chief Complaint Bilateral lower extremity wounds Consult Requested by Dr. Navarro Reason for Consult Treatment of bilateral lower extremity wounds. Primary Care Physician Steven Navarro MD History of Present Illness 61-year-old female who I see in the wound center here at [facility]. 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 She has a venous stasis ulceration on the right lateral leg and the left dorsal foot. Last culture and sensitivity grew out pseudomonas visitor information assistant oral quinolones. Patient currently being followed by infectious disease and hematology. Patient feeling better today. Coded Allergies: Vancomycin (Verified Allergy, Severe, HIVES, 04/18/16) Cleocin (Verified Allergy, Intermediate, loose stool and diarrhea, ) Minipress (Verified Allergy, Mild, ANXIETY, 04/18/16) Sulfa (Verified Allergy, Unknown, UNKNOWN, 04/18/16) Rocephin (Verified Adverse Reaction, Mild, ANXIETY, 04/18/16) *MDRO Multi-Drug Resistant Organism (Verified Adverse Reaction, Unknown, ESBL, MRSA, 04/19/16) MRSA (leg wound) - 10/05/2015, ESBL+Klebsiella Pneumoniae (leg-01/18/16) Preferred Language to Discuss: [place] Barriers to Learning: None Teaching Method: Discussion Vital Signs Date Time Temp Pulse Resp B/P Pulse Ox O2 Delivery O2 Flow Rate FiO2 04/21/16 09:50 19 04/21/16 08:00 96.6 86 18 108/61 95 04/21/16 00:00 98.6 95 18 128/79 96 04/20/16 20:17 95 21 04/20/16 20:00 98.6 102 20 101/66 95 04/20/16 16:00 96.1 93 16 104/64 96 Pain scale used: 0-10 numeric scale Pain score: 3 Medications Current Medications Albuterol/ Ipratropium (Duoneb Neb) 1 ampule ONCE ONCE INH Last administered on 04/18/16at 23:56; Start 04/19/16 at 00:00; Stop 04/19/16 at 00:01; Status DC Morphine Sulfate (Morphine Inj) 4 mg ONCE ONCE IV PUSH Last administered on at 01:09; Start 04/19/16 at 01:00; Stop 04/19/16 at 01:01; Status DC Ondansetron HCl (Zofran Inj) 4 mg ONCE ONCE IV PUSH Last administered on 04/19at 01:09; Start 04/19/16 at 01:00; Stop 04/19/16 at 01:01; Status DC Potassium Chloride 20 meq 20 meq ONCE ONCE PO Last administered on 04/19/16at 03:12; Start 04/19/16 at 02:45; Stop 04/19/16 at 02:46; Status DC Levofloxacin/ Dextrose (Levaquin 750 Mg Premix Inj) 150 ml @ 100 mls/hr ONCE ONCE IV Last administered on 04/19/16at 03:12; Start 04/19/16 at 02:45; Stop 04/19/16 at 04:14; Status DC Ondansetron HCl (Zofran Inj) 4 mg Q6H PRN IV NAUSEA OR VOMITING; Start at 03:00; Stop 04/19/16 at 07:54; Status DC Acetaminophen (Tylenol) 650 mg Q4H PRN PO Temp>101F, Headache; Start 04/19/16 at 03:00; Stop 04/19/16 at 07:54; Status DC IV Flush (NS Flush) 2 ml BID IVF ; Start 04/19/16 at 09:00; Stop 04/19/16 at 09:00; Status DC IV Flush (NS Flush) 2 ml UNSCH PRN IVF FLUSH AFTER USING IV ACCESS; Start at 03:00; Stop 04/19/16 at 07:54; Status DC Morphine Sulfate (Morphine Inj) 4 mg Q3H PRN IV PUSH PAIN Last administered on 04/19/16at 22:02; Start 04/19/16 at 03:00 Pneumococcal Polyvalent Vaccine (Pneumovax-23 Inj) 25 mcg ONCE ONCE IM Last administered on 04/20/16at 11:09; Start 04/20/16 at 10:00; Stop 04/20/16 at 10 :01; Status DC IV Flush (NS Flush) 2 ml UNSCH PRN FLUSH FLUSH AFTER USING IV ACCESS; Start at 07:45 IV Flush (NS Flush) 2 ml BID FLUSH Last administered on 04/21/16t 08:44; Start 04/19/16 at 09:00 Acetaminophen (Tylenol) 650 mg Q4H PRN PO TEMP > 100.4; Start 04/19/16 at 07: 45 Ondansetron HCl (Zofran Inj) 4 mg Q6H PRN IVP NAUSEA OR VOMITING; Start at 07:45 Bisacodyl (Dulcolax Supp) 10 mg DAILY PRN [place] CONSTIPATION; Start 04/19/16 at 07:45 Magnesium Hydroxide (Milk Of Magnesia Liq) 30 ml Q12H PRN PO CONSTIPATION; Start 04/19/16 at 07:45 Sennosides (Senokot) 17.2 mg Q12H PRN PO CONSTIPATION; Start 04/19/16 at 07:45 Zolpidem Tartrate (Ambien) 5 mg HS PRN PO INSOMNIA; Start 04/19/16 at 07:45 Enoxaparin Sodium (Lovenox Inj) 40 mg Q24H SQ ; Start 04/19/16 at 08:00; Stop 04/21/16 at 07:43; Status DC Naloxone HCl (Narcan Inj) 0.4 mg UNSCH PRN IV SEE LABEL COMMENTS; Start at 07:45 Gabapentin (Neurontin) 600 mg TID PO Last administered on 04/21/16 08:44; Start 04/19/16 at 09:00; Stop 04/21/16 at 12:14; Status DC Oxycodone HCl (Roxicodone) 5 mg Q4H PRN PO PAIN SCALE 4 TO 10 Last administered on 04/21/16 08:50; Start 04/19/16 at 08:00 Pantoprazole Sodium (Protonix) 20 mg DAILY PO Last administered on 04/21/16 08: 44; Start 04/19/16 at 09:00 Albuterol/ Ipratropium (Duoneb Neb) 1 ampule QID NEB NEB Last administered on 04/21/16 11:32; Start 04/19/16 at 08:00 Lorazepam (Ativan) 0.5 mg Q8H PRN PO SEVERE ANXIETY OR AGITATION; Start at 08:00 Clonidine (Catapres) 0.1 mg Q6H PRN PO SBP>160, DBP>90; Start 04/19/16 at 08: 00 Enalaprilat (Vasotec Inj) 2.5 mg Q6H PRN IV PUSH SBP> OR = 180, DBP> OR = 100; Start 04/19/16 at 08:00 Furosemide (Lasix Inj) 40 mg BID@09,18 IV PUSH Last administered on 04/21/16 08 :44; Start 04/19/16 at 09:00 Methylprednisolone Sodium Succinate (SoluMEDROL INJ) 80 mg Q6HR IV PUSH Last administered on 04/21/16 04:47; Start 04/19/16 at 12:00; Stop 04/21/16 at 07:43 ; Status DC Potassium Chloride (KCl) 40 meq ONCE ONCE PO Last administered on 04/19/16at 09:09; Start 04/19/16 at 08:00; Stop 04/19/16 at 08:01; Status DC Potassium Chloride 20 meq 20 meq DAILY PO Last administered on 04/21/16 08:44; Start 04/19/16 at 09:00 Levofloxacin/ Dextrose 150 ml @ 100 mls/hr Q24H IV Last administered on 03:31; Start 04/20/16 at 03:00 Piperacillin Sod/ Tazobactam Sod (Zosyn 4.5 Gm Premix) 100 ml @ 200 mls/hr Q6H IV Last administered on 04/21/16 10:36; Start 04/19/16 at 17:00 Filgrastim (Neupogen Inj) 300 mcg ONCE ONCE SQ Last administered on at 14:41; Start 04/20/16 at 14:00; Stop 04/20/16 at 14:14; Status DC Methylprednisolone Sodium Succinate (SoluMEDROL INJ) 40 mg BID IV PUSH Last administered on 04/21/16 08:50; Start 04/21/16 at 09:00 Gabapentin (Neurontin) 400 mg BID PO ; Start 04/21/16 at 21:00 Gabapentin (Neurontin) 300 mg BID PO ; Start 04/21/16 at 21:00 Past, Family & Social History Past Medical History PFSH Reviewed: Yes Gastrointestinal: REPORTS HX OF: GERD, Liver disease (Cirrhosis of the liver- 5 years), Other GI history (Enlarged Spleen) Gynecologic: REPORTS HX OF: Other ornament stapler history (prolapsed uterus) Musculoskeletal: REPORTS HX OF: Rheumatoid arthritis Cancer/Hematology: REPORTS HX OF: Other cancer/hematology Infectious disease: REPORTS HX OF: Chickenpox, Measles, Mumps Integumentary: REPORTS HX OF: Other integumentary hx (Scleroderma, Raynaud's Disease) Neurologic: REPORTS HX OF: Peripheral neuropathy Psychiatric: REPORTS HX OF: Anxiety, Depression Additional past medical hx Burt syndrome Past Surgical History HEENT: REPORTS HX OF: Tonsillectomy, Other throat surgery (Esophageal Varicies) Gynecologic: DENIES HX OF: Hysterectomy Breast: DENIES HX OF: Mastectomy, bilateral, Mastectomy, left, Mastectomy, right Family Medical History Patient History: Cardiac arrhythmia G8 FATHER Kidney disease G8 FATHER Substance Use Substance use: Denies use Review of Systems Notes No other changes in her 14 point review of systems exam since yesterday Constitutional: COMPLAINS OF: Fatigue Cardiovascular: COMPLAINS OF: Swelling legs / ankles Wound Assessment Vascular Assessment R Dorsails Pedis: Palpable L Dorsails Pedis: Palpable R Posterior Tibial: Palpable L Posterior Tibial: Palpable Sensation of Left Extremity: Diminished Sensation of Right Extremity: Diminished Extremities Evaluation: Edema Right, Edema Left Other Information edema is improved versus the last few days. Wound Information - Wound One Wound Location: Right lateral leg Wound Type: Venous Disease Classification: FT- full thickness Wound Length: 3.0 cm Wound Width: 1.0 cm Wound Depth: 0.2 cm Exudate: Low Exudate Type: Serosanguineous Debridement: No Fibrin Amount: Mild Granulation Tissue Color: [place] Granulation Tissue Texture: Firm Exposed: No exposed bone, muscle, tendon Eschar: No Odor: No Periwound Appearance: FINDINGS: Maceration Dressing Notes: OPTIFOAM gentle AG Wound Two Wound Location: Left dorsal foot Wound Type: Venous Disease Classification: FT- full thickness Wound Length: 2.3 cm Wound Width: 1.4 cm Wound Depth: 0.2 cm Photo Taken: No Exudate: Moderate Exudate Type: Yellow Debridement: No Fibrin Amount: Moderate Granulation Tissue Color: [place] Granulation Tissue Texture: Firm Exposed: No exposed bone, muscle, tendon Periwound Appearance: FINDINGS: Maceration Dressing Notes: Optifoam AG Wound Three Wound Location: Left anterior leg Lab and Radiology Results Laboratory Laboratory Tests Test 04/20/16 04/21/16 04:16 06:17 White Blood Count 1.5 TH/MM3 4.7 TH/MM3 Red Blood Count 2.86 MIL/MM3 2.52 MIL/MM3 Hemoglobin 8.7 GM/DL 7.7 GM/DL Hematocrit 26.3 % 23.4 % Mean Corpuscular Volume 92.1 FL 92.8 FL Mean Corpuscular Hemoglobin 30.4 PG 30.5 PG Mean Corpuscular Hemoglobin 33.1 % 32.9 % Concent Red Cell Distribution Width 16.9 % 17.1 % Platelet Count 105 TH/MM3 94 TH/MM3 Mean Platelet Volume 8.1 FL 8.4 FL Neutrophils (%) (Auto) 82.1 % 91.9 % Lymphocytes (%) (Auto) 14.7 % 5.0 % Monocytes (%) (Auto) 2.9 % 2.3 % Eosinophils (%) (Auto) 0.2 % 0.2 % Basophils (%) (Auto) 0.1 % 0.6 % Neutrophils # (Auto) 1.3 TH/MM3 4.3 TH/MM3 Lymphocytes # (Auto) 0.2 TH/MM3 0.2 TH/MM3 Monocytes # (Auto) 0.0 TH/MM3 0.1 TH/MM3 Eosinophils # (Auto) 0.0 TH/MM3 0.0 TH/MM3 Basophils # (Auto) 0.0 TH/MM3 0.0 TH/MM3 CBC Comment AUTO DIFF AUTO DIFF Differential Total Cells 100 Counted Neutrophils % (Manual) 84 % Band Neutrophils % 7 % Lymphocytes % 6 % Monocytes % 3 % Neutrophils # (Manual) 1.4 TH/MM3 Differential Comment FINAL DIFF MANUAL Platelet Estimate LOW Platelet Morphology Comment NORMAL Tear Drop Cells 1+ Ovalocytes 1+ Acanthocytes 1+ Laboratory Tests Test 04/20/16 04/21/16 04:16 06:17 Sodium Level 143 MEQ/L 144 MEQ/L Potassium Level 3.8 MEQ/L 3.5 MEQ/L Chloride Level 107 MEQ/L 107 MEQ/L Carbon Dioxide Level 24.2 MEQ/L 25.6 MEQ/L Anion Gap 12 MEQ/L 11 MEQ/L Blood Urea Nitrogen 19 MG/DL 20 MG/DL Creatinine 0.91 MG/DL 1.07 MG/DL Estimat Glomerular Filtration 63 ML/MIN 52 ML/MIN Rate Random Glucose 131 MG/DL 137 MG/DL Calcium Level 8.0 MG/DL 7.6 MG/DL Microbiology Date/Time Procedure Status Source Growth 04/19/16 00:00 Aerobic Blood Culture - Preliminary Resulted Blood Peripheral NO GROWTH IN 2 DAYS 04/19/16 00:00 Anaerobic Blood Culture - Preliminary Resulted Blood Peripheral NO GROWTH IN 2 DAYS 04/19/16 00:10 Aerobic Blood Culture - Preliminary Resulted Blood Peripheral NO GROWTH IN 2 DAYS 04/19/16 00:10 Anaerobic Blood Culture - Preliminary Resulted Blood Peripheral NO GROWTH IN 2 DAYS 04/19/16 21:07 Legionella Antigen - Final Complete Urine Clean Catch PRESUMPTIVE NEGATIVE FOR LEGIONELLA P... 04/19/16 21:07 Streptococcus pneumoniae Antigen (M - Final Complete Urine Clean Catch PRESUMPTIVE NEGATIVE FOR STREPTOCOCCU... Radiology Last Impressions Lower Extremity Ultrasound 04/18/162347 Signed Impressions: Service Date/Time: Tuesday, April 19, 2016 00:31 - CONCLUSION: No DVT in either lower extremity. Floyd Naqvi MD Foot X-Ray 04/18/162347 Signed Impressions: Service Date/Time: March 23:56 - CONCLUSION: Diffuse soft tissue swelling. No periosteal reaction or fracture. Possible linear foreign body along the great toe Floyd Naqvi MD Chest X-Ray 04/18/162347 Signed Impressions: Service Date/Time: March 23:49 - CONCLUSION: 1. Left upper lobe and right lower lobe airspace disease likely pneumonia. 2. Small right pleural effusion. Floyd Naqvi MD Assessment/Plan Problem List: (1) Foot ulcer Status: Chronic (2) Cirrhosis Status: Chronic (3) Peripheral neuropathy Status: Chronic (4) Lupus (systemic lupus erythematosus) Status: Chronic (5) CREST (calcinosis, Raynaud's phenomenon, esophageal dysfunction, sclerodactyly, telangiectasia) Status: Chronic (6) Venous stasis ulcer Status: Chronic Additional Plans & Procedures PLAN: Changed her dressings today. Wounds are improved. Edema is down. Patient can be discharged from a wound care standpoint when cleared by medicine. I will follow in the wound center. Problem Qualifiers (1) Foot ulcer: Qualified Code: L97.522 - Foot ulcer, left, with fat layer exposed (2) Cirrhosis: Qualified Code: K74.60 - Cirrhosis of liver with ascites, unspecified hepatic cirrhosis type (3) Peripheral neuropathy: Qualified Code: G60.3 - Idiopathic progressive neuropathy (4) Lupus (systemic lupus erythematosus): Qualified Code: M32.13 - Systemic lupus erythematosus with lung involvement, unspecified SLE type Floyd Rankin DPM Apr 21, 2016 12:43
[2016-04-21 14:14] LABS: BANDS 14 % (0-6); NEUTROPHIL # MANUAL DIFF 4.4 TH/MM3 (1.8-7.7); OVALOCYTES 1+ (NORMAL); PLATELET ESTIMATE SMEAR LOW (NORMAL); PLATELET MORPHOLOGY NORMAL (NORMAL); POLYS (SEG NEUTROPHILS) 79 % (16-70); SCAN/DIFF FINAL DIFF MANUAL; TEARDROP RBCS 1+ (NORMAL); WBC DIFF SAMPLE 100
[2016-04-21 16:00] VITALS: BP 99/58; PULSE 88; RESP 18; TEMP 97.7; O2SAT 96
[2016-04-21 20:00] VITALS: BP 113/70; PULSE 76; RESP 19; TEMP 96; O2SAT 97
[2016-04-21] MEDS: GABAPENTIN 400 MG CAP PO SCH (20:45)
[2016-04-21 21:53] VITALS: O2SAT 95
[2016-04-21] MEDS: SODIUM CHLORIDE 0.9% FLUSH 5 ML FLUSH FLUSH PRN (22:28)
[2016-04-22] VITALS (7 sets, daily range): BP systolic 101–147; BP diastolic 57–83; PULSE 83–102; RESP 19–22; TEMP 87.2–96.3; O2SAT 95–97
[2016-04-22] MEDS: SODIUM CHLORIDE 0.9% FLUSH 5 ML FLUSH FLUSH PRN (03:41)
[2016-04-22] MEDS: LEVOFLOXACIN 750 MG PREMIX INJ 150 ML IV SCH (03:41)
[2016-04-22] MEDS: PIPERACIL-TAZO 4.5 GM PREMIX 100 ML IV SCH ×4 (03:41→23:20)
[2016-04-22 05:45] LABS: AUTOMATED NEUTROPHIL # 2.9 TH/MM3 (1.8-7.7); BASOPHIL % 0.2 % (0.0-2.0); EOSINOPHIL % 0.1 % (0.0-4.0); HEMATOCRIT 24.6 % (35.0-46.0); LYMPHOCYTE # 0.3 TH/MM3 (1.0-4.8); MEAN CELL VOLUME 93.8 FL (80.0-100.0); MEAN CORPUSCULAR HEMOGLOBIN 30.4 PG (27.0-34.0); MEAN CORPUSCULAR HGB CONC 32.4 % (32.0-36.0); MONO % 3.2 % (0.0-8.0); NEUT % 88.5 % (16.0-70.0); PLATELET COUNT 86 TH/MM3 (150-450); RED BLOOD COUNT 2.62 MIL/MM3 (4.00-5.30); RED CELL DISTRIBUTION WIDTH 17.5 % (11.6-17.2); WHITE BLOOD COUNT 3.3 TH/MM3 (4.0-11.0)
[2016-04-22 05:59] LABS: HEMO FLAGS AUTO DIFF
[2016-04-22 06:11] LABS: BICARBONATE 26.3 MEQ/L (21.0-32.0)
[2016-04-22 07:07] LABS: OVALOCYTES 1+ (NORMAL); PLATELET ESTIMATE SMEAR LOW (NORMAL); PLATELET MORPHOLOGY NORMAL (NORMAL); SCAN/DIFF AUTO DIFF CONFIRMED; TEARDROP RBCS 1+ (NORMAL)
[2016-04-22] MEDS: PANTOPRAZOLE SOD 20 MG DELAYED RELEASE TAB PO SCH (08:14)
[2016-04-22] MEDS: FUROSEMIDE 40 MG/4 ML VIAL IV PUSH SCH ×2 (08:15→18:58)
[2016-04-22] MEDS: methylPREDNISolone SOD SUCC 40 MG/1 ML VIAL IV PUSH SCH (08:15)
[2016-04-22] MEDS: GABAPENTIN 300 MG CAP PO SCH ×2 (08:15→20:42)
[2016-04-22] MEDS: GABAPENTIN 400 MG CAP PO SCH ×2 (08:15→20:42)
[2016-04-22] MEDS: POTASSIUM CHLORIDE 20 MEQ CONTROLLED RELEASE TAB PO SCH ×3 (08:15→18:58)
[2016-04-22] MEDS: SODIUM CHLORIDE 0.9% FLUSH 5 ML FLUSH FLUSH SCH ×2 (08:16→20:25)
--- NOTE | 2016-04-22 08:33 | HHI.FPPN ---
Subjective Remarks C/O COUGH C/O WOUND PAIN C/O WEAKNESS D/W RN Objective Vitals Vital Signs Date Time Temp Pulse Resp B/P Pulse Ox O2 Delivery O2 Flow Rate FiO2 04/22/16 00:00 96.2 93 19 103/57 96 04/21/16 21:53 95 21 04/21/16 20:00 96.0 76 19 113/70 97 04/21/16 18:28 17 04/21/16 16:00 97.7 88 18 99/58 96 04/21/16 12:00 96.3 88 18 106/64 96 I/O 04/21/16 04/21/16 04/21/16 04/22/16 04/22/16 04/22/16 07:00 15:00 23:00 07:00 15:00 23:00 Intake Total 540 ml 605 ml 344 ml 600 ml Output Total 300 ml 200 ml Balance 240 ml 605 ml 144 ml 600 ml Intake Oral 240 ml 480 ml 240 ml 240 ml IV Total 300 ml 125 ml 104 ml 360 ml Output Urine Total 300 ml 200 ml # Voids 3 1 # Bowel Movements 0 2 1 1 Result Diagram: 04/22/16 0434 04/22/16 0434 Objective Remarks GENERAL: SKIN: Warm and dry. HEAD: Atraumatic. Normocephalic. EYES: Pupils equal and round. No scleral icterus. No injection or drainage. ENT: No nasal bleeding or discharge. Mucous membranes pink and moist. NECK: Trachea midline. No JVD. CARDIOVASCULAR: Regular rate and rhythm. RESPIRATORY: B RONCHI, HARSH COUGH; R CRACKLES GASTROINTESTINAL: Abdomen soft, non-tender, nondistended. Hepatic and splenic margins not palpable. MUSCULOSKELETAL: BLE EDEMA, WRAPPED, NEUROLOGICAL: Awake and alert. No obvious cranial nerve deficits. Motor grossly within normal limits. 4 out of 5 muscle strength in the arms and legs. Normal speech. PSYCHIATRIC: Appropriate mood and affect; insight and judgment normal. Medications and IVs Current Medications Medications (Trade) Dose Ordered Sig/Jose M Route Start Time Stop Time Status Last Admin (Morphine Inj) 4 mg Q3H PRN IV PUSH 04/19/16 03:00 04/19/16 22:02 (NS Flush) 2 ml UNSCH PRN FLUSH 04/19/16 07:45 04/22/16 03:41 (NS Flush) 2 ml BID FLUSH 04/19/16 09:00 04/22/16 08:16 (Tylenol) 650 mg Q4H PRN PO 04/19/16 07:45 (Zofran Inj) 4 mg Q6H PRN IVP 04/19/16 07:45 (Dulcolax Supp) 10 mg DAILY PRN NM 04/19/16 07:45 (Milk Of Magnesia Liq) 30 ml Q12H PRN PO 04/19/16 07:45 (Senokot) 17.2 mg Q12H PRN PO 04/19/16 07:45 (Ambien) 5 mg HS PRN PO 04/19/16 07:45 (Narcan Inj) 0.4 mg UNSCH PRN IV 04/19/16 07:45 (Roxicodone) 5 mg Q4H PRN PO 04/19/16 08:00 04/22/16 08:16 (Protonix) 20 mg DAILY PO 04/19/16 09:00 04/22/16 08:14 (Ativan) 0.5 mg Q8H PRN PO 04/19/16 08:00 (Catapres) 0.1 mg Q6H PRN PO 04/19/16 08:00 (Vasotec Inj) 2.5 mg Q6H PRN IV PUSH 04/19/16 08:00 (Lasix Inj) 40 mg BID@09,18 IV PUSH 04/19/16 09:00 04/22/16 08:15 Potassium Chloride 20 meq 20 meq DAILY PO 04/19/16 09:00 04/22/16 08:15 Levofloxacin/ Dextrose 150 ml @ 100 mls/hr Q24H IV 04/20/16 03:00 04/22/16 03:41 (Zosyn 4.5 Gm Premix) 100 ml @ 200 mls/hr Q6H IV 04/19/16 17:00 04/22/16 03:41 (SoluMEDROL INJ) 40 mg BID IV PUSH 04/21/16 09:00 04/22/16 08:15 (Neurontin) 400 mg BID PO 04/21/16 21:00 04/22/16 08:15 (Neurontin) 300 mg BID PO 04/21/16 21:00 04/22/16 08:15 A/P Problem List: (1) Severe sepsis Status: Resolved (2) Cellulitis of right lower extremity Status: Acute (3) Pneumonia Status: Acute (4) Azotemia Status: Acute (5) Anemia Status: Acute (6) Cirrhosis Status: Chronic (7) Pancytopenia Status: Acute (8) Peripheral vascular disease Status: Acute (9) Hypertension Status: Acute (10) CREST (calcinosis, Raynaud's phenomenon, esophageal dysfunction, sclerodactyly, telangiectasia) Status: Chronic (11) Protein-calorie malnutrition, moderate Status: Acute (12) Noncompliance Status: Acute (13) History of esophageal varices Status: Acute (14) Noncompliance w/medication treatment due to intermit use of medication Status: Acute (15) Peripheral neuropathy Status: Chronic (16) Foot ulcer Status: Chronic (17) Lupus (systemic lupus erythematosus) Status: Chronic (18) Venous stasis ulcer Status: Chronic (19) Tobacco use Status: Acute Plan: SEPSIS PNA RLE CELLULITIS BLEEDING UTERINE PROLAPSE LUPUS CREST HYPERNATREMIA HYPOKALEMIA PLAN: INCR KCL LOWER STEROIDS IV ABX IV STEROIDS IV LASIX DUONEBS BLOOD CULTURES WOUND CONSULT DR FELDMAN CONSULT WELL PULLER HEAD CONSULT FOR BLEEDING UTERINE PROLAPSE OUTPT, HAS FOLLOWUP IN TWO WEEKS. HOLD FOR UTERINE PROLAPSE BLEEDING LOVENOX 40 QD FOR PROPHYLAXIS K REPLACEMENT FOR HYPOKALEMIA Problem Qualifiers (1) Pneumonia: Qualified Code: J18.9 - Pneumonia of both lungs due to infectious organism, unspecified part of lung (2) Cirrhosis: Qualified Code: K74.60 - Cirrhosis of liver with ascites, unspecified hepatic cirrhosis type (3) Peripheral neuropathy: Qualified Code: G60.3 - Idiopathic progressive neuropathy (4) Foot ulcer: Qualified Code: L97.522 - Foot ulcer, left, with fat layer exposed (5) Lupus (systemic lupus erythematosus): Qualified Code: M32.13 - Systemic lupus erythematosus with lung involvement, unspecified SLE type Steven Navarro MD Apr 22, 2016 08:33
[2016-04-22] MEDS: RESP: ALBUTEROL 2.5 MG/IPRATROPIUM 0.5 MG NEB (SCH) NEB ×4 (08:57→20:20)
--- NOTE | 2016-04-22 10:49 | PD.ONC.PN ---
Subjective Subjective Remarks Feeling better. No CP/SOB/cough. Objective Data Date Time Temp Pulse Resp B/P Pulse Ox O2 Delivery O2 Flow Rate FiO2 04/22/16 08:57 96 21 04/22/16 08:00 96.2 83 20 118/72 95 04/22/16 00:00 96.2 93 19 103/57 96 04/21/16 21:53 95 21 04/21/16 20:00 96.0 76 19 113/70 97 04/21/16 18:28 17 04/21/16 16:00 97.7 88 18 99/58 96 04/21/16 12:00 96.3 88 18 106/64 96 04/22/16 04/22/16 04/22/16 06:59 14:59 22:59 Intake Total 600 ml Balance 600 ml Result Diagram: 04/22/16 0434 04/22/16 0434 Laboratory Results Laboratory Tests Test 04/22/16 04:34 White Blood Count 3.3 TH/MM3 Red Blood Count 2.62 MIL/MM3 Hemoglobin 8.0 GM/DL Hematocrit 24.6 % Mean Corpuscular Volume 93.8 FL Mean Corpuscular Hemoglobin 30.4 PG Mean Corpuscular Hemoglobin 32.4 % Concent Red Cell Distribution Width 17.5 % Platelet Count 86 TH/MM3 Mean Platelet Volume 8.0 FL Neutrophils (%) (Auto) 88.5 % Lymphocytes (%) (Auto) 8.0 % Monocytes (%) (Auto) 3.2 % Eosinophils (%) (Auto) 0.1 % Basophils (%) (Auto) 0.2 % Neutrophils # (Auto) 2.9 TH/MM3 Lymphocytes # (Auto) 0.3 TH/MM3 Monocytes # (Auto) 0.1 TH/MM3 Eosinophils # (Auto) 0.0 TH/MM3 Basophils # (Auto) 0.0 TH/MM3 CBC Comment AUTO DIFF Differential Comment AUTO DIFF CONFIRMED Platelet Estimate LOW Platelet Morphology Comment NORMAL Tear Drop Cells 1+ Ovalocytes 1+ Sodium Level 147 MEQ/L Potassium Level 3.0 MEQ/L Chloride Level 110 MEQ/L Carbon Dioxide Level 26.3 MEQ/L Anion Gap 11 MEQ/L Blood Urea Nitrogen 20 MG/DL Creatinine 1.15 MG/DL Estimat Glomerular Filtration 48 ML/MIN Rate Random Glucose 148 MG/DL Calcium Level 8.2 MG/DL Culture Results Microbiology Date/Time Procedure Status Source Growth 04/19/16 21:07 Legionella Antigen - Final Complete Urine Clean Catch PRESUMPTIVE NEGATIVE FOR LEGIONELLA P... 04/19/16 21:07 Streptococcus pneumoniae Antigen (M - Final Complete Urine Clean Catch PRESUMPTIVE NEGATIVE FOR STREPTOCOCCU... Administered Medications Medications (Trade) Dose Ordered Sig/Jose M Route PRN Reason Start Time Stop Time Status Last Admin Dose Admin Morphine Sulfate (Morphine Inj) 4 mg Q3H PRN IV PUSH PAIN 04/19/16 03:00 04/19/16 22:02 IV Flush (NS Flush) 2 ml UNSCH PRN FLUSH FLUSH AFTER USING IV ACCESS 04/19/16 07:45 04/22/16 03:41 IV Flush (NS Flush) 2 ml BID FLUSH 04/19/16 09:00 04/22/16 08:16 Oxycodone HCl (Roxicodone) 5 mg Q4H PRN PO PAIN SCALE 4 TO 10 04/19/16 08:00 04/22/16 08:16 Pantoprazole Sodium (Protonix) 20 mg DAILY PO 04/19/16 09:00 04/22/16 08:14 Furosemide 40 mg 40 mg BID@09,18 IV PUSH 04/19/16 09:00 04/22/16 08:15 Levofloxacin/ Dextrose 150 ml @ 100 mls/hr Q24H IV 04/20/16 03:00 04/22/16 03:41 Piperacillin Sod/ Tazobactam Sod (Zosyn 4.5 Gm Premix) 100 ml @ 200 mls/hr Q6H IV 04/19/16 17:00 04/22/16 03:41 Gabapentin (Neurontin) 400 mg BID PO 04/21/16 21:00 04/22/16 08:15 Gabapentin (Neurontin) 300 mg BID PO 04/21/16 21:00 04/22/16 08:15 Objective Remarks GENERAL: Well-nourished, well-developed patient. SKIN: Warm and dry. HEAD: Normocephalic. EYES: No scleral icterus. No injection or drainage. NECK: Supple, trachea midline. No JVD or lymphadenopathy. LYMPHATIC: No adenopathy. CARDIOVASCULAR: Regular rate and rhythm without murmurs. RESPIRATORY: Breath sounds equal bilaterally. No accessory muscle use. GASTROINTESTINAL: Abdomen soft, non-tender, nondistended. EXTREMITIES: No cyanosis, BLE edema, in SAMM wrap MUSCULOSKELETAL: Adequate muscle tone. NEUROLOGICAL: No obvious focal deficit. Awake, alert, and oriented x3. PSYCHIATRIC: Appropriate mood and affect; insight and judgment normal. Assessment/Plan Problem List: (1) Pancytopenia Status: Acute Plan: 04/22/16: Not neutropenia, afebrile, counts relatively stable. 04/21/16: Hgb 7.7. WBC's 4.7 today. --Likely due to underlying autoimmune disorder, cirrhosis and splenomegaly. --Monitor. (2) Pneumonia Status: Acute Plan: --Improving --On Levaquin, Zosyn. -- ID following (3) Venous stasis ulcer Status: Chronic Plan: -- On antibiotics as she also developed an ulcer. -- ID following Assessment 61 y/o female who presented to the ER with c/o SOB and bilateral leg swelling. Plan 1. No need for neupogen today 2. Continue to monitor CBC. 3. Continue antibiotics per ID. 4. Supportive care. Problem Qualifiers (1) Pneumonia: Qualified Code: J18.9 - Pneumonia of both lungs due to infectious organism, unspecified part of lung Roddy Cutler MD Apr 22, 2016 10:49
--- NOTE | 2016-04-22 13:41 | HHI.IDPN ---
Subjective Subjective Remarks Notes reviewed Temps ok Feels less congested Pain in BLE better, L worse than R Podiatry notes reviewed Minimal cough Not SOB WBC went down to 1.5, got dose of Neupogen, WBC better [place] and Pneumo Ag negative Antibiotics Zosyn Levaquin Past Medical History Pancytopenia Scleroderma, lupus CREST syndrome Cirrhosis, , esophageal varices Chronic venous stasis ulcer Peripheral neuropathy Splenomegaly Peripheral vascular disease Hypertension Vasculitis Allergies: Coded Allergies: Vancomycin (Verified Allergy, Severe, HIVES, 04/18/16) Cleocin (Verified Allergy, Intermediate, loose stool and diarrhea, ) Minipress (Verified Allergy, Mild, ANXIETY, 04/18/16) Sulfa (Verified Allergy, Unknown, UNKNOWN, 04/18/16) Rocephin (Verified Adverse Reaction, Mild, ANXIETY, 04/18/16) *MDRO Multi-Drug Resistant Organism (Verified Adverse Reaction, Unknown, ESBL, MRSA, 04/19/16) MRSA (leg wound) - 10/05/2015, ESBL+Klebsiella Pneumoniae (leg-01/18/16) Objective . Vital Signs Date Time Temp Pulse Resp B/P Pulse Ox O2 Delivery O2 Flow Rate FiO2 04/22/16 12:00 95.9 102 22 147/83 96 04/22/16 08:57 96 21 04/22/16 08:00 96.2 83 20 118/72 95 04/22/16 00:00 96.2 93 19 103/57 96 04/21/16 21:53 95 21 04/21/16 20:00 96.0 76 19 113/70 97 04/21/16 18:28 17 04/21/16 16:00 97.7 88 18 99/58 96 04/21/16 04/21/16 04/22/16 15:00 23:00 07:00 Intake Total 605 ml 344 ml 600 ml Output Total 200 ml Balance 605 ml 144 ml 600 ml Intake Oral 480 ml 240 ml 240 ml IV Total 125 ml 104 ml 360 ml Output Urine Total 200 ml # Voids 3 1 # Bowel Movements 2 1 1 . Laboratory Tests Test 04/21/16 04/22/16 06:17 04:34 White Blood Count 4.7 TH/MM3 3.3 TH/MM3 Red Blood Count 2.52 MIL/MM3 2.62 MIL/MM3 Hemoglobin 7.7 GM/DL 8.0 GM/DL Hematocrit 23.4 % 24.6 % Mean Corpuscular Volume 92.8 FL 93.8 FL Mean Corpuscular Hemoglobin 30.5 PG 30.4 PG Mean Corpuscular Hemoglobin 32.9 % 32.4 % Concent Red Cell Distribution Width 17.1 % 17.5 % Platelet Count 94 TH/MM3 86 TH/MM3 Mean Platelet Volume 8.4 FL 8.0 FL Neutrophils (%) (Auto) 91.9 % 88.5 % Lymphocytes (%) (Auto) 5.0 % 8.0 % Monocytes (%) (Auto) 2.3 % 3.2 % Eosinophils (%) (Auto) 0.2 % 0.1 % Basophils (%) (Auto) 0.6 % 0.2 % Neutrophils # (Auto) 4.3 TH/MM3 2.9 TH/MM3 Lymphocytes # (Auto) 0.2 TH/MM3 0.3 TH/MM3 Monocytes # (Auto) 0.1 TH/MM3 0.1 TH/MM3 Eosinophils # (Auto) 0.0 TH/MM3 0.0 TH/MM3 Basophils # (Auto) 0.0 TH/MM3 0.0 TH/MM3 CBC Comment AUTO DIFF AUTO DIFF Differential Total Cells 100 Counted Neutrophils % (Manual) 79 % Band Neutrophils % 14 % Lymphocytes % 6 % Monocytes % 1 % Neutrophils # (Manual) 4.4 TH/MM3 Differential Comment FINAL DIFF AUTO DIFF MANUAL CONFIRMED Platelet Estimate LOW LOW Platelet Morphology Comment NORMAL NORMAL Tear Drop Cells 1+ 1+ Ovalocytes 1+ 1+ Laboratory Tests Test 04/21/16 04/22/16 06:17 04:34 Sodium Level 144 MEQ/L 147 MEQ/L Potassium Level 3.5 MEQ/L 3.0 MEQ/L Chloride Level 107 MEQ/L 110 MEQ/L Carbon Dioxide Level 25.6 MEQ/L 26.3 MEQ/L Anion Gap 11 MEQ/L 11 MEQ/L Blood Urea Nitrogen 20 MG/DL 20 MG/DL Creatinine 1.07 MG/DL 1.15 MG/DL Estimat Glomerular Filtration 52 ML/MIN 48 ML/MIN Rate Random Glucose 137 MG/DL 148 MG/DL Calcium Level 7.6 MG/DL 8.2 MG/DL Microbiology Date/Time Procedure Status Source Growth 04/19/16 21:07 Legionella Antigen - Final Complete Urine Clean Catch PRESUMPTIVE NEGATIVE FOR LEGIONELLA P... 04/19/16 21:07 Streptococcus pneumoniae Antigen (M - Final Complete Urine Clean Catch PRESUMPTIVE NEGATIVE FOR STREPTOCOCCU... Imaging Lower Extremity Ultrasound 04/18/162347 Signed Impressions: Service Date/Time: Tuesday, April 19, 2016 00:31 - CONCLUSION: No DVT in either lower extremity. Floyd Naqvi MD Foot X-Ray 04/18/162347 Signed Impressions: Service Date/Time: March 23:56 - CONCLUSION: Diffuse soft tissue swelling. No periosteal reaction or fracture. Possible linear foreign body along the great toe Floyd Naqvi MD Chest X-Ray 04/18/162347 Signed Impressions: Service Date/Time: March 23:49 - CONCLUSION: 1. Left upper lobe and right lower lobe airspace disease likely pneumonia. 2. Small right pleural effusion. Floyd Naqvi MD Physical Exam GENERAL: This is a thin, awake and alert, NAD SKIN: Cool and dry. No generalized rash. Has some spider nevi face and upper chest HEENT: [place] conjunctivae. No scleral icterus. No injection or drainage. Moist oral mucosa. NECK: Trachea midline. No JVD or lymphadenopathy. Supple, nontender, no meningeal signs. CARDIOVASCULAR: Regular rate and rhythm without murmurs, gallops, or rubs. RESPIRATORY: Clear to auscultation. Breath sounds equal bilaterally. No wheezes , rales, or rhonchi. GASTROINTESTINAL: Abdomen distended, with large umbilical hernia, has diffuse tenderness, no guarding or rebound. Bowel sounds are present and normoactive. MUSCULOSKELETAL: Has BLE pitting edema. Intact dressings to both LE NEUROLOGICAL: Non-focal PSYCH: Appropriate affect, calm and cooperative Assessment & Plan Remarks IMPRESSION CAP, patient with underlying CTD Chronic LE edema, with stasis ulcers (+) C/S PSAE,, Enterococcus and MSSA, mild cellulitis Hx CREST, Lupus, scleroderma Liver cirrhosis RECOMMENDATION Continue Zosyn Continue Levaquin Repeat CXR Wound care per podiatry Monitor progress Edema control EXplained plan to patient Jaylyn Hair MD Apr 22, 2016 13:41
--- NOTE | 2016-04-22 14:35 | RADRPT ---
EXAM DATE/TIME: 04/22/2016 14:23 [facility] COMPARISON: No previous studies available for comparison. INDICATIONS : Short of breath on exertion. MEDICAL HISTORY : None. SURGICAL HISTORY : None. ENCOUNTER: Initial ACUITY: 2 days PAIN SCORE: 4/10 LOCATION: Bilateral upper chest FINDINGS: The right effusion is decreased in size. There is patchy airspace disease at the right base. Left eduard g is clear. Cardiomegaly. There is some fluid tracking in the oblique fissure. Osseous structures are intact. CONCLUSION: Improving aeration. Christian Tolliver MD on April 22, 2016 at 14:33 Board Certified Radiologist. This report was verified electronically.
[2016-04-23] MEDS: LEVOFLOXACIN 750 MG PREMIX INJ 150 ML IV SCH (03:38)
[2016-04-23] MEDS: PIPERACIL-TAZO 4.5 GM PREMIX 100 ML IV SCH ×4 (05:22→22:47)
[2016-04-23 05:47] LABS: AUTOMATED NEUTROPHIL # 2.5 TH/MM3 (1.8-7.7); BASOPHIL % 0.2 % (0.0-2.0); EOSINOPHIL % 0.6 % (0.0-4.0); HEMATOCRIT 24.4 % (35.0-46.0); LYMPH % 12.3 % (9.0-44.0); LYMPHOCYTE # 0.4 TH/MM3 (1.0-4.8); MEAN CELL VOLUME 92.2 FL (80.0-100.0); MEAN CORPUSCULAR HEMOGLOBIN 30.4 PG (27.0-34.0); MONO % 4.8 % (0.0-8.0); NEUT % 82.1 % (16.0-70.0); PLATELET COUNT 97 TH/MM3 (150-450); RED BLOOD COUNT 2.65 MIL/MM3 (4.00-5.30); WHITE BLOOD COUNT 3.1 TH/MM3 (4.0-11.0)
[2016-04-23 05:56] LABS: HEMO FLAGS AUTO DIFF
[2016-04-23 06:03] LABS: BICARBONATE 29.4 MEQ/L (21.0-32.0)
[2016-04-23 06:07] LABS: POTASSIUM 2.8 MEQ/L (3.5-5.1)
[2016-04-23] MEDS: POTASSIUM CHLOR 20 MEQ PREMIX 100 ML IV SCH ×2 (06:40→08:38)
[2016-04-23 08:00] VITALS: BP 105/65; PULSE 79; RESP 18; TEMP 97.5; O2SAT 98
[2016-04-23] MEDS: RESP: ALBUTEROL 2.5 MG/IPRATROPIUM 0.5 MG NEB (SCH) NEB (08:00)
[2016-04-23] MEDS: SODIUM CHLORIDE 0.9% FLUSH 5 ML FLUSH FLUSH SCH ×2 (08:34→21:03)
[2016-04-23] MEDS: GABAPENTIN 400 MG CAP PO SCH ×2 (08:37→21:03)
[2016-04-23] MEDS: PANTOPRAZOLE SOD 20 MG DELAYED RELEASE TAB PO SCH (08:37)
[2016-04-23] MEDS: POTASSIUM CHLORIDE 20 MEQ CONTROLLED RELEASE TAB PO SCH ×3 (08:37→17:50)
[2016-04-23] MEDS: FUROSEMIDE 40 MG/4 ML VIAL IV PUSH SCH ×2 (08:37→17:50)
[2016-04-23] MEDS: methylPREDNISolone SOD SUCC 40 MG/1 ML VIAL IV PUSH SCH (08:37)
[2016-04-23] MEDS: GABAPENTIN 300 MG CAP PO SCH ×2 (08:37→21:03)
[2016-04-23 08:52] LABS: BANDS 8 % (0-6); CORRECTED NUCLEATED RBC 1 /100 WBC (0-0); EOSINOPHILS 1 % (0-4); METAMYELOCYTES 1 % (0-1); NEUTROPHIL # MANUAL DIFF 2.8 TH/MM3 (1.8-7.7); POLYS (SEG NEUTROPHILS) 80 % (16-70); WBC DIFF SAMPLE 100
[2016-04-23 08:53] LABS: OVALOCYTES 1+ (NORMAL); PLATELET ESTIMATE SMEAR LOW (NORMAL); PLATELET MORPHOLOGY NORMAL (NORMAL); SCAN/DIFF FINAL DIFF MANUAL; TEARDROP RBCS 1+ (NORMAL)
--- NOTE | 2016-04-23 10:13 | PD.ONC.PN ---
Subjective Subjective Remarks Afebrile overnight. Patient resting. She feels tired today but is otherwise without complaint. Objective Data Date Time Temp Pulse Resp B/P Pulse Ox O2 Delivery O2 Flow Rate FiO2 04/23/16 08:00 97.5 79 18 105/65 98 04/22/16 20:20 97 04/22/16 20:00 87.2 84 20 114/68 96 04/22/16 16:00 96.3 86 20 101/67 95 04/22/16 12:00 95.9 102 22 147/83 96 04/23/16 04/23/16 04/23/16 07:00 15:00 23:00 Intake Total 560 ml Output Total 400 ml Balance 160 ml Result Diagram: 04/23/16 0527 04/23/1627 Laboratory Results Laboratory Tests Test 04/23/16 05:27 White Blood Count 3.1 TH/MM3 Red Blood Count 2.65 MIL/MM3 Hemoglobin 8.1 GM/DL Hematocrit 24.4 % Mean Corpuscular Volume 92.2 FL Mean Corpuscular Hemoglobin 30.4 PG Mean Corpuscular Hemoglobin 33.0 % Concent Red Cell Distribution Width 17.0 % Platelet Count 97 TH/MM3 Mean Platelet Volume 7.7 FL Neutrophils (%) (Auto) 82.1 % Lymphocytes (%) (Auto) 12.3 % Monocytes (%) (Auto) 4.8 % Eosinophils (%) (Auto) 0.6 % Basophils (%) (Auto) 0.2 % Neutrophils # (Auto) 2.5 TH/MM3 Lymphocytes # (Auto) 0.4 TH/MM3 Monocytes # (Auto) 0.1 TH/MM3 Eosinophils # (Auto) 0.0 TH/MM3 Basophils # (Auto) 0.0 TH/MM3 CBC Comment AUTO DIFF Differential Total Cells 100 Counted Neutrophils % (Manual) 80 % Band Neutrophils % 8 % Lymphocytes % 7 % Monocytes % 3 % Eosinophils % 1 % Neutrophils # (Manual) 2.8 TH/MM3 Metamyelocytes 1 % Nucleated Red Blood Cells 1 /100 WBC Differential Comment FINAL DIFF MANUAL Platelet Estimate LOW Platelet Morphology Comment NORMAL Tear Drop Cells 1+ Ovalocytes 1+ Sodium Level 146 MEQ/L Potassium Level 2.8 MEQ/L Chloride Level 108 MEQ/L Carbon Dioxide Level 29.4 MEQ/L Anion Gap 9 MEQ/L Blood Urea Nitrogen 21 MG/DL Creatinine 1.17 MG/DL Estimat Glomerular Filtration 47 ML/MIN Rate Random Glucose 105 MG/DL Lactic Acid Level 2.0 mmol/L Calcium Level 7.8 MG/DL Administered Medications Medications (Trade) Dose Ordered Sig/Jose M Route PRN Reason Start Time Stop Time Status Last Admin Dose Admin Morphine Sulfate (Morphine Inj) 4 mg Q3H PRN IV PUSH PAIN 04/19/16 03:00 04/19/16 22:02 IV Flush (NS Flush) 2 ml UNSCH PRN FLUSH FLUSH AFTER USING IV ACCESS 04/19/16 07:45 04/22/16 03:41 IV Flush (NS Flush) 2 ml BID FLUSH 04/19/16 09:00 04/22/16 08:16 Oxycodone HCl (Roxicodone) 5 mg Q4H PRN PO PAIN SCALE 4 TO 10 04/19/16 08:00 04/23/16 08:46 Pantoprazole Sodium (Protonix) 20 mg DAILY PO 04/19/16 09:00 04/23/16 08:37 Furosemide 40 mg 40 mg BID@,18 IV PUSH 04/19/16 09:00 04/23/16 08:37 Levofloxacin/ Dextrose 150 ml @ 100 mls/hr Q24H IV 04/20/16 03:00 04/23/16 03:38 Piperacillin Sod/ Tazobactam Sod (Zosyn 4.5 Gm Premix) 100 ml @ 200 mls/hr Q6H IV 04/19/16 17:00 04/23/16 05:22 Gabapentin (Neurontin) 400 mg BID PO 04/21/16 21:00 04/23/16 08:37 Gabapentin (Neurontin) 300 mg BID PO 04/21/16 21:00 04/23/16 08:37 Methylprednisolone Sodium Succinate (SoluMEDROL INJ) 40 mg DAILY IV PUSH 04/23/16 09:00 04/23/16 08:37 Potassium Chloride 20 meq 20 meq TID PO 04/22/16 13:00 04/23/16 08:37 Potassium Chloride (KCl 20 Meq Premix Inj) 100 ml @ 50 mls/hr Q2H IV 04/23/16 07:00 04/23/16 10:59 04/23/16 08:38 Objective Remarks GENERAL: Middle aged female sitting up in bed in nad. SKIN: Warm and dry. HEAD: Normocephalic. EYES: No scleral icterus. No injection or drainage. NECK: Supple, trachea midline. CARDIOVASCULAR: Regular rate and rhythm RESPIRATORY: Breath sounds equal bilaterally. No accessory muscle use. GASTROINTESTINAL: Abdomen soft, non-tender, nondistended. EXTREMITIES: No cyanosis NEUROLOGICAL: No obvious focal deficit. Awake, alert, and oriented x3. Assessment/Plan Problem List: (1) Pancytopenia Status: Acute Plan: 04/23/15: counts remain stable. 04/22/16: No neutropenia, afebrile, counts relatively stable. 04/21/16: Hgb 7.7. WBC's 4.7 today. --Likely due to underlying autoimmune disorder, cirrhosis and splenomegaly. --Monitor. (2) Pneumonia Status: Acute Plan: --Improving --On Levaquin, Zosyn. -- ID following (3) Venous stasis ulcer Status: Chronic Plan: -- On antibiotics as she also developed an ulcer. -- ID following Assessment 61 y/o female who presented to the ER with c/o SOB and bilateral leg swelling. Plan 1. No transfusion today 2. monitor CBC 3. abx per ID. Attending Statement The exam, history, and the medical decision-making described in the above note were completed with the assistance of the mid-level provider. I reviewed and agree with the findings presented. I attest that I had a [id number] encounter with the patient on the same day, and personally performed and documented my assessment and findings in the medical record. Problem Qualifiers (1) Pneumonia: Qualified Code: J18.9 - Pneumonia of both lungs due to infectious organism, unspecified part of lung Lynette Lr Apr 23, 2016 10:13 Vini Arguelles MD Apr 23, 2016 20:41
--- NOTE | 2016-04-23 11:15 | HHI.FPPN ---
Subjective Remarks CALLED BY Travis CULP C/O LEG EDEMA C/O WOUND PAIN B D/W RN C/O COUGH AND SPUTUM Objective Vitals Vital Signs Date Time Temp Pulse Resp B/P Pulse Ox O2 Delivery O2 Flow Rate FiO2 04/23/16 08:00 97.5 79 18 105/65 98 04/22/16 20:20 97 04/22/16 20:00 87.2 84 20 114/68 96 04/22/16 16:00 96.3 86 20 101/67 95 04/22/16 12:00 95.9 102 22 147/83 96 I/O 04/22/16 04/22/16 04/22/16 04/23/16 04/23/16 04/23/16 06:59 14:59 22:59 06:59 14:59 22:59 Intake Total 600 ml 480 ml 580 ml 560 ml Output Total 600 ml 675 ml 400 ml Balance 600 ml -120 ml -95 ml 160 ml Intake Oral 240 ml 480 ml 480 ml 360 ml IV Total 360 ml 100 ml 200 ml Output Urine Total 600 ml 675 ml 400 ml # Voids 1 # Bowel Movements 1 5 0 0 Result Diagram: 04/23/1652604/23/16526 Objective Remarks GENERAL: SKIN: Warm and dry. HEAD: Atraumatic. Normocephalic. EYES: Pupils equal and round. No scleral icterus. No injection or drainage. ENT: No nasal bleeding or discharge. Mucous membranes pink and moist. NECK: Trachea midline. No JVD. CARDIOVASCULAR: Regular rate and rhythm. RESPIRATORY: B RONCHI, HARSH COUGH; R CRACKLES GASTROINTESTINAL: Abdomen soft, non-tender, nondistended. Hepatic and splenic margins not palpable. MUSCULOSKELETAL: BLE EDEMA, WRAPPED, NEUROLOGICAL: Awake and alert. No obvious cranial nerve deficits. Motor grossly within normal limits. 4 out of 5 muscle strength in the arms and legs. Normal speech. PSYCHIATRIC: Appropriate mood and affect; insight and judgment normal. Medications and IVs Current Medications Medications (Trade) Dose Ordered Sig/Jose M Route Start Time Stop Time Status Last Admin (Morphine Inj) 4 mg Q3H PRN IV PUSH 04/19/16 03:00 04/19/16 22:02 (NS Flush) 2 ml UNSCH PRN FLUSH 04/19/16 07:45 04/22/16 03:41 (NS Flush) 2 ml BID FLUSH 04/19/16 09:00 04/22/16 08:16 (Tylenol) 650 mg Q4H PRN PO 04/19/16 07:45 (Zofran Inj) 4 mg Q6H PRN IVP 04/19/16 07:45 (Dulcolax Supp) 10 mg DAILY PRN AR 04/19/16 07:45 (Milk Of Magnesia Liq) 30 ml Q12H PRN PO 04/19/16 07:45 (Senokot) 17.2 mg Q12H PRN PO 04/19/16 07:45 (Ambien) 5 mg HS PRN PO 04/19/16 07:45 (Narcan Inj) 0.4 mg UNSCH PRN IV 04/19/16 07:45 (Roxicodone) 5 mg Q4H PRN PO 04/19/16 08:00 04/23/16 08:46 (Protonix) 20 mg DAILY PO 04/19/16 09:00 04/23/16 08:37 (Ativan) 0.5 mg Q8H PRN PO 04/19/16 08:00 (Catapres) 0.1 mg Q6H PRN PO 04/19/16 08:00 (Vasotec Inj) 2.5 mg Q6H PRN IV PUSH 04/19/16 08:00 Furosemide 40 mg 40 mg BID@09,18 IV PUSH 04/19/16 09:00 04/23/16 08:37 Levofloxacin/ Dextrose 150 ml @ 100 mls/hr Q24H IV 04/20/16 03:00 04/23/16 03:38 (Zosyn 4.5 Gm Premix) 100 ml @ 200 mls/hr Q6H IV 04/19/16 17:00 04/23/16 05:22 (Neurontin) 400 mg BID PO 04/21/16 21:00 04/23/16 08:37 (Neurontin) 300 mg BID PO 04/21/16 21:00 04/23/16 08:37 (SoluMEDROL INJ) 40 mg DAILY IV PUSH 04/23/16 09:00 04/23/16 08:37 (KCl) 20 meq TID PO 04/22/16 13:00 04/23/16 08:37 A/P Problem List: (1) Severe sepsis Status: Resolved (2) Cellulitis of right lower extremity Status: Acute (3) Pneumonia Status: Acute (4) Azotemia Status: Acute (5) Anemia Status: Acute (6) Cirrhosis Status: Chronic (7) Pancytopenia Status: Acute (8) Peripheral vascular disease Status: Acute (9) Hypertension Status: Acute (10) CREST (calcinosis, Raynaud's phenomenon, esophageal dysfunction, sclerodactyly, telangiectasia) Status: Chronic (11) Protein-calorie malnutrition, moderate Status: Acute (12) Noncompliance Status: Acute (13) History of esophageal varices Status: Acute (14) Noncompliance w/medication treatment due to intermit use of medication Status: Acute (15) Peripheral neuropathy Status: Chronic (16) Foot ulcer Status: Chronic (17) Lupus (systemic lupus erythematosus) Status: Chronic (18) Venous stasis ulcer Status: Chronic (19) Tobacco use Status: Acute Plan: SEPSIS PNA RLE CELLULITIS BLEEDING UTERINE PROLAPSE LUPUS CREST HYPERNATREMIA HYPOKALEMIA PLAN: CHECK RENIN AND ALDOSTERONE ADD SPIRONOLACTONE BIE IV ABX IV STEROIDS IV LASIX DUONEBS BLOOD CULTURES WOUND CONSULT DR FELDMAN CONSULT LUMBER STICKER CONSULT FOR BLEEDING UTERINE PROLAPSE OUTPT, HAS FOLLOWUP IN TWO WEEKS. HOLD LOVENOX FOR UTERINE PROLAPSE BLEEDING K REPLACEMENT FOR HYPOKALEMIA Problem Qualifiers (1) Pneumonia: Qualified Code: J18.9 - Pneumonia of both lungs due to infectious organism, unspecified part of lung (2) Cirrhosis: Qualified Code: K74.60 - Cirrhosis of liver with ascites, unspecified hepatic cirrhosis type (3) Peripheral neuropathy: Qualified Code: G60.3 - Idiopathic progressive neuropathy (4) Foot ulcer: Qualified Code: L97.522 - Foot ulcer, left, with fat layer exposed (5) Lupus (systemic lupus erythematosus): Qualified Code: M32.13 - Systemic lupus erythematosus with lung involvement, unspecified SLE type Steven Navarro MD Apr 23, 2016 11:15
[2016-04-23 12:00] VITALS: BP 110/65; PULSE 83; RESP 18; TEMP 97.4; O2SAT 98
[2016-04-23 12:41] VITALS: O2SAT 98
[2016-04-23 16:00] VITALS: BP 108/77; PULSE 65; RESP 16; TEMP 97.7; O2SAT 99
--- NOTE | 2016-04-23 16:54 | PD.WOU.PN ---
Patient Intake Chief Complaint Bilateral lower extremity ulcerations Consult Requested by Dr. Navarro Reason for Consult Treatment of bilateral lower extremity ulcerations Primary Care Physician History of Present Illness 61-year-old female who I see in the wound center here at [place]. She has a venous stasis wound of the right leg and the left dorsal foot. She is complaining of weakness and shortness of breath and was admitted to [facility] last week. I ordered Maxorb extra AG dressings on her wounds. She has problems with crest syndrome and lupus with bilateral venous insufficiency secondary to liver cirrhosis. Coded Allergies: Vancomycin (Verified Allergy, Severe, HIVES, 04/18/16) Cleocin (Verified Allergy, Intermediate, loose stool and diarrhea, ) Minipress (Verified Allergy, Mild, ANXIETY, 04/18/16) Sulfa (Verified Allergy, Unknown, UNKNOWN, 04/18/16) Rocephin (Verified Adverse Reaction, Mild, ANXIETY, 04/18/16) *MDRO Multi-Drug Resistant Organism (Verified Adverse Reaction, Unknown, ESBL, MRSA, 04/19/16) MRSA (leg wound) - 10/05/2015, ESBL+Klebsiella Pneumoniae (leg-01/18/16) Preferred Language to Discuss: Kiswahili Barriers to Learning: None Teaching Method: Discussion Vital Signs Date Time Temp Pulse Resp B/P Pulse Ox O2 Delivery O2 Flow Rate FiO2 04/23/16 12:41 98 21 04/23/16 12:00 97.4 83 18 110/65 98 04/23/16 08:00 97.5 79 18 105/65 98 04/22/16 20:20 97 04/22/16 20:00 87.2 84 20 114/68 96 Pain scale used: 0-10 numeric scale Pain score: 4 Past, Family & Social History Past Medical History PFSH Reviewed: Yes Gastrointestinal: REPORTS HX OF: GERD, Liver disease (Cirrhosis of the liver- 5 years), Other GI history (Enlarged Spleen) Gynecologic: REPORTS HX OF: Other candle cutter history (prolapsed uterus) Musculoskeletal: REPORTS HX OF: Rheumatoid arthritis Cancer/Hematology: REPORTS HX OF: Other cancer/hematology Infectious disease: REPORTS HX OF: Chickenpox, Measles, Mumps Integumentary: REPORTS HX OF: Other integumentary hx (Scleroderma, Raynaud's Disease) Neurologic: REPORTS HX OF: Peripheral neuropathy Psychiatric: REPORTS HX OF: Anxiety, Depression Additional past medical hx Burt syndrome Past Surgical History HEENT: REPORTS HX OF: Tonsillectomy, Other throat surgery (Esophageal Varicies) Gynecologic: DENIES HX OF: Hysterectomy Breast: DENIES HX OF: Mastectomy, bilateral, Mastectomy, left, Mastectomy, right Family Medical History Patient History: Cardiac arrhythmia G8 FATHER Kidney disease G8 FATHER Substance Use Substance use: Denies use Review of Systems Notes No changes in her 14 point review of systems exam from the previous visit Wound Assessment Vascular Assessment R Dorsails Pedis: Palpable L Dorsails Pedis: Palpable R Posterior Tibial: Palpable Sensation of Left Extremity: Diminished Sensation of Right Extremity: Diminished Extremities Evaluation: Edema Right, Edema Left Wound Information - Wound One Ulceration is improved Wound Location: Right lateral leg Wound Type: Venous Disease Wound Length: 3.0 cm Wound Width: 1.0 cm Wound Depth: 0.2 cm Exudate: Low Exudate Type: Serosanguineous Debridement: No Fibrin Amount: Mild Granulation Tissue Color: [place] Granulation Tissue Texture: Firm Exposed: No exposed bone, muscle, tendon Eschar: No Odor: No Periwound Appearance: FINDINGS: Normal Dressings: Maxorb Extra AG Wound Two Ulceration improved Wound Location: Left dorsal foot Wound Type: Venous Disease Classification: FT- full thickness Wound Length: 2.3 cm Wound Width: 1.4 cm Wound Depth: 0.2 cm Exudate: Low Exudate Type: Serosanguineous Debridement: No Fibrin Amount: None Granulation Tissue Color: [place] Granulation Tissue Texture: Firm Exposed: No exposed bone, muscle, tendon Eschar: No Odor: No Periwound Appearance: FINDINGS: Normal Dressings: Maxorb Extra AG Wound Three Wound Location: Left anterior leg Lab and Radiology Results Laboratory Laboratory Tests Test 04/22/16 04/23/16 04:34 05:27 White Blood Count 3.3 TH/MM3 3.1 TH/MM3 Red Blood Count 2.62 MIL/MM3 2.65 MIL/MM3 Hemoglobin 8.0 GM/DL 8.1 GM/DL Hematocrit 24.6 % 24.4 % Mean Corpuscular Volume 93.8 FL 92.2 FL Mean Corpuscular Hemoglobin 30.4 PG 30.4 PG Mean Corpuscular Hemoglobin 32.4 % 33.0 % Concent Red Cell Distribution Width 17.5 % 17.0 % Platelet Count 86 TH/MM3 97 TH/MM3 Mean Platelet Volume 8.0 FL 7.7 FL Neutrophils (%) (Auto) 88.5 % 82.1 % Lymphocytes (%) (Auto) 8.0 % 12.3 % Monocytes (%) (Auto) 3.2 % 4.8 % Eosinophils (%) (Auto) 0.1 % 0.6 % Basophils (%) (Auto) 0.2 % 0.2 % Neutrophils # (Auto) 2.9 TH/MM3 2.5 TH/MM3 Lymphocytes # (Auto) 0.3 TH/MM3 0.4 TH/MM3 Monocytes # (Auto) 0.1 TH/MM3 0.1 TH/MM3 Eosinophils # (Auto) 0.0 TH/MM3 0.0 TH/MM3 Basophils # (Auto) 0.0 TH/MM3 0.0 TH/MM3 CBC Comment AUTO DIFF AUTO DIFF Differential Comment AUTO DIFF FINAL DIFF CONFIRMED MANUAL Platelet Estimate LOW LOW Platelet Morphology Comment NORMAL NORMAL Tear Drop Cells 1+ 1+ Ovalocytes 1+ 1+ Differential Total Cells 100 Counted Neutrophils % (Manual) 80 % Band Neutrophils % 8 % Lymphocytes % 7 % Monocytes % 3 % Eosinophils % 1 % Neutrophils # (Manual) 2.8 TH/MM3 Metamyelocytes 1 % Nucleated Red Blood Cells 1 /100 WBC Laboratory Tests Test 04/22/16 04/23/16 04/23/16 04:34 05:27 13:25 Sodium Level 147 MEQ/L 146 MEQ/L Potassium Level 3.0 MEQ/L 2.8 MEQ/L Chloride Level 110 MEQ/L 108 MEQ/L Carbon Dioxide Level 26.3 MEQ/L 29.4 MEQ/L Anion Gap 11 MEQ/L 9 MEQ/L Blood Urea Nitrogen 20 MG/DL 21 MG/DL Creatinine 1.15 MG/DL 1.17 MG/DL Estimat Glomerular Filtration 48 ML/MIN 47 ML/MIN Rate Random Glucose 148 MG/DL 105 MG/DL Calcium Level 8.2 MG/DL 7.8 MG/DL Lactic Acid Level 2.0 mmol/L Magnesium Level 1.6 MG/DL Radiology Last Impressions Chest X-Ray 04/22/16 0000 Signed Impressions: Service Date/Time: Friday, April 22, 2016 14:23 - CONCLUSION: Improving aeration. Christian Tolliver MD Lower Extremity Ultrasound 04/18/16 0108 Signed Impressions: Service Date/Time: Tuesday, April 19, 2016 00:31 - CONCLUSION: No DVT in either lower extremity. Floyd Naqvi MD Foot X-Ray 04/18/16 1854 Signed Impressions: Service Date/Time: March 23:56 - CONCLUSION: Diffuse soft tissue swelling. No periosteal reaction or fracture. Possible linear foreign body along the great toe Floyd Naqvi MD Assessment/Plan Problem List: (1) Foot ulcer Status: Chronic (2) Cirrhosis Status: Chronic (3) Peripheral neuropathy Status: Chronic (4) Lupus (systemic lupus erythematosus) Status: Chronic (5) CREST (calcinosis, Raynaud's phenomenon, esophageal dysfunction, sclerodactyly, telangiectasia) Status: Chronic (6) Venous stasis ulcer Status: Chronic Additional Plans & Procedures PLAN: Dressing changed with Maxorb extra AG. And patient is stable medically she can be discharged from a wound care standpoint. I will follow her in the wound center. Problem Qualifiers (1) Foot ulcer: Qualified Code: L97.522 - Foot ulcer, left, with fat layer exposed (2) Cirrhosis: Qualified Code: K74.60 - Cirrhosis of liver with ascites, unspecified hepatic cirrhosis type (3) Peripheral neuropathy: Qualified Code: G60.3 - Idiopathic progressive neuropathy (4) Lupus (systemic lupus erythematosus): Qualified Code: M32.13 - Systemic lupus erythematosus with lung involvement, unspecified SLE type Floyd Rankin DPM Apr 23, 2016 16:54
[2016-04-23] MEDS: SPIRONOLACTONE 50 MG TAB PO SCH (17:49)
[2016-04-23 20:00] VITALS: BP 111/64; PULSE 80; RESP 20; TEMP 97; O2SAT 95
[2016-04-24] MEDS: LEVOFLOXACIN 750 MG PREMIX INJ 150 ML IV SCH (03:16)
[2016-04-24] MEDS: PIPERACIL-TAZO 4.5 GM PREMIX 100 ML IV SCH ×2 (04:49→12:05)
[2016-04-24 06:36] LABS: AUTOMATED NEUTROPHIL # 2.5 TH/MM3 (1.8-7.7); BASOPHIL % 0.2 % (0.0-2.0); EOSINOPHIL # 0.1 TH/MM3 (0-0.4); EOSINOPHIL % 1.9 % (0.0-4.0); HEMATOCRIT 26.4 % (35.0-46.0); LYMPH % 18.3 % (9.0-44.0); LYMPHOCYTE # 0.6 TH/MM3 (1.0-4.8); MEAN CORPUSCULAR HEMOGLOBIN 30.5 PG (27.0-34.0); MEAN CORPUSCULAR HGB CONC 33.1 % (32.0-36.0); MONO % 5.2 % (0.0-8.0); NEUT % 74.4 % (16.0-70.0); PLATELET COUNT 111 TH/MM3 (150-450); RED BLOOD COUNT 2.86 MIL/MM3 (4.00-5.30); RED CELL DISTRIBUTION WIDTH 17.4 % (11.6-17.2); WHITE BLOOD COUNT 3.4 TH/MM3 (4.0-11.0)
[2016-04-24 06:41] LABS: HEMO FLAGS AUTO DIFF
[2016-04-24 07:04] LABS: BICARBONATE 28.7 MEQ/L (21.0-32.0)
[2016-04-24 07:11] LABS: POTASSIUM 2.8 MEQ/L (3.5-5.1)
[2016-04-24 07:28] LABS: BANDS 3 % (0-6); KERATOCYTES OCC (NORMAL); METAMYELOCYTES 1 % (0-1); MYELOCYTES 1 % (0-0); NEUTROPHIL # MANUAL DIFF 2.8 TH/MM3 (1.8-7.7); OVALOCYTES 2+ (NORMAL); PLATELET ESTIMATE SMEAR LOW (NORMAL); PLATELET MORPHOLOGY NORMAL (NORMAL); POLYS (SEG NEUTROPHILS) 76 % (16-70); SCAN/DIFF FINAL DIFF MANUAL; WBC DIFF SAMPLE 100
[2016-04-24 08:00] VITALS: BP 101/61; PULSE 81; RESP 18; TEMP 97; O2SAT 95
[2016-04-24] MEDS: GABAPENTIN 300 MG CAP PO SCH (09:15)
[2016-04-24] MEDS: GABAPENTIN 400 MG CAP PO SCH (09:15)
[2016-04-24] MEDS: methylPREDNISolone SOD SUCC 40 MG/1 ML VIAL IV PUSH SCH (09:15)
[2016-04-24] MEDS: PANTOPRAZOLE SOD 20 MG DELAYED RELEASE TAB PO SCH (09:15)
[2016-04-24] MEDS: FUROSEMIDE 40 MG/4 ML VIAL IV PUSH SCH (09:15)
[2016-04-24] MEDS: SPIRONOLACTONE 50 MG TAB PO SCH (09:15)
[2016-04-24] MEDS: POTASSIUM CHLORIDE 20 MEQ CONTROLLED RELEASE TAB PO SCH ×2 (09:16→12:05)
[2016-04-24] MEDS: SODIUM CHLORIDE 0.9% FLUSH 5 ML FLUSH FLUSH SCH (09:16)
[2016-04-24] MEDS ORDERED: OXYC15TA PO (10:55)
[2016-04-24] MEDS ORDERED: SPIR25TA PO (10:55)
[2016-04-24] MEDS ORDERED: LEVA500T PO (10:55)
[2016-04-24] MEDS ORDERED: MAGN400T2 PO (10:55)
[2016-04-24] MEDS ORDERED: POTA-243 PO (10:55)
--- NOTE | 2016-04-24 10:57 | HHI.DCPOC ---
Discharge Care Plan Diagnosis: (1) Pneumonia (2) Cirrhosis (3) Peripheral vascular disease (4) Hypertension (5) CREST (calcinosis, Raynaud's phenomenon, esophageal dysfunction, sclerodactyly, telangiectasia) (6) Protein-calorie malnutrition, moderate (7) Cellulitis of right lower extremity (8) History of esophageal varices (9) Noncompliance w/medication treatment due to intermit use of medication (10) Peripheral neuropathy (11) Foot ulcer (12) Lupus (systemic lupus erythematosus) (13) Venous stasis ulcer (14) Pancytopenia Goals to Promote Your Health * To prevent worsening of your condition and complications * To maintain your health at the optimal level Directions to Meet Your Goals Take your medications as prescribed Follow your dietary instruction Follow activity as directed Keep your appointments as scheduled Take your immunizations and boosters as scheduled If your symptoms worsen call your PCP, if no PCP go to Urgent Care Center or Emergency Room Smoking is Dangerous to Your Health. Avoid second hand smoke Call the 24-hour hour crisis hotline for domestic abuse at Steven Navarro MD Apr 24, 2016 10:57
--- NOTE | 2016-04-24 10:58 | HHI.DS ---
Discharge Summary Admission Date Apr 19, 2016 at 02:52 Discharge Date: Apr 24, 2016 Admitting Diagnosis pneumonia. Foot ulcer (1) Pneumonia (2) Azotemia (3) Anemia (4) Cirrhosis (5) Peripheral vascular disease (6) Hypertension (7) Severe sepsis (8) CREST (calcinosis, Raynaud's phenomenon, esophageal dysfunction, sclerodactyly, telangiectasia) (9) Protein-calorie malnutrition, moderate (10) Cellulitis of right lower extremity (11) History of esophageal varices (12) Noncompliance w/medication treatment due to intermit use of medication (13) Peripheral neuropathy (14) Foot ulcer (15) Lupus (systemic lupus erythematosus) (16) Venous stasis ulcer (17) Pancytopenia Brief History 61 Y CF, INCREASED EDEMA RECENTLY. RECENTLY QUIT SMOKING. HAS HAD GENERAL DECLINE OVER THE LAST YEAR. NUMEROUS HOSPITAL ADMISSIONS. OUTPT WOUND CLINIC PT OF DR FELDMAN. DEVELOPED INCREASED CONGESTION THIS WEEK WELL. PT FELT MALAISED AND PRESENTED TO THE ER. I WAS CALLED BY THE ER MD FOR ADMISSION DUE TO PNA AND CELLULITIS OF THE LEGS. CBC/BMP: 04/24/16 0521 04/24/16 0521 Significant Findings Laboratory Tests Test 04/22/16 04/23/16 04/24/16 04:34 05:27 05:21 White Blood Count 3.3 TH/MM3 3.1 TH/MM3 3.4 TH/MM3 (4.0-11.0) (4.0-11.0) (4.0-11.0) Red Blood Count 2.62 MIL/MM3 2.65 MIL/MM3 2.86 MIL/MM3 (4.00-5.30) (4.00-5.30) (4.00-5.30) Hemoglobin 8.0 GM/DL 8.1 GM/DL 8.7 GM/DL (11.6-15.3) (11.6-15.3) (11.6-15.3) Hematocrit 24.6 % 24.4 % 26.4 % (35.0-46.0) (35.0-46.0) (35.0-46.0) Red Cell Distribution Width 17.5 % 17.4 % (11.6-17.2) (11.6-17.2) Platelet Count 86 TH/MM3 97 TH/MM3 111 TH/MM3 (150-450) (150-450) (150-450) Neutrophils (%) (Auto) 88.5 % 82.1 % 74.4 % (16.0-70.0) (16.0-70.0) (16.0-70.0) Lymphocytes (%) (Auto) 8.0 % (9.0-44.0) Lymphocytes # (Auto) 0.3 TH/MM3 0.4 TH/MM3 0.6 TH/MM3 (1.0-4.8) (1.0-4.8) (1.0-4.8) Platelet Estimate LOW (NORMAL) LOW (NORMAL) LOW (NORMAL) Tear Drop Cells 1+ (NORMAL) 1+ (NORMAL) Ovalocytes 1+ (NORMAL) 1+ (NORMAL) 2+ (NORMAL) Sodium Level 147 MEQ/L 146 MEQ/L 147 MEQ/L (136-145) (136-145) (136-145) Potassium Level 3.0 MEQ/L 2.8 MEQ/L 2.8 MEQ/L (3.5-5.1) (3.5-5.1) (3.5-5.1) Chloride Level 110 MEQ/L 108 MEQ/L 108 MEQ/L (98-107) (98-107) (98-107) Blood Urea Nitrogen 20 MG/DL (7-18) 21 MG/DL (7-18) 19 MG/DL (7-18) Creatinine 1.15 MG/DL 1.17 MG/DL 1.21 MG/DL (0.50-1.00) (0.50-1.00) (0.50-1.00) Estimat Glomerular Filtration 48 ML/MIN (>89) 47 ML/MIN (>89) 46 ML/MIN (>89) Rate Random Glucose 148 MG/DL 107 MG/DL (74-106) (74-106) Calcium Level 8.2 MG/DL 7.8 MG/DL 7.9 MG/DL (8.5-10.1) (8.5-10.1) (8.5-10.1) Neutrophils % (Manual) 80 % (16-70) 76 % (16-70) Band Neutrophils % 8 % (0-6) Lymphocytes % 7 % (9-44) Nucleated Red Blood Cells 1 /100 WBC (0-0) Myelocytes 1 % (0-0) Keratocytes OCC (NORMAL) PE at Discharge GENERAL: SKIN: Warm and dry. HEAD: Atraumatic. Normocephalic. EYES: Pupils equal and round. No scleral icterus. No injection or drainage. ENT: No nasal bleeding or discharge. Mucous membranes pink and moist. NECK: Trachea midline. No JVD. CARDIOVASCULAR: Regular rate and rhythm. RESPIRATORY: No accessory muscle use. Clear to auscultation. Breath sounds equal bilaterally. GASTROINTESTINAL: Abdomen soft, non-tender, nondistended. Hepatic and splenic margins not palpable. MUSCULOSKELETAL: Extremities without clubbing, cyanosis. SEVERE EDME WITH LARGE WOUNDS ON B FEET, B WRAPS. NEUROLOGICAL: Awake and alert. No obvious cranial nerve deficits. Motor grossly within normal limits. Five out of 5 muscle strength in the arms and legs. Normal speech. PSYCHIATRIC: Appropriate mood and affect; insight and judgment normal. Hospital Course 61 Y CF, ADMIT WITH - SEPSIS PNA RLE CELLULITIS BLEEDING UTERINE PROLAPSE LUPUS CREST HYPERNATREMIA HYPOKALEMIA HOSPITAL COURSE AND PLAN WAS TO - CHECK RENIN AND ALDOSTERONE ADD SPIRONOLACTONE BID IV ABX IV STEROIDS IV LASIX DUONEBS BLOOD CULTURES WOUND CONSULT DR FELDMAN CONSULT SHIPPING AND RECEIVING SUPERVISOR CONSULT FOR BLEEDING UTERINE PROLAPSE OUTPT, HAS FOLLOWUP IN TWO WEEKS. HOLD LOVENOX FOR UTERINE PROLAPSE BLEEDING K REPLACEMENT FOR HYPOKALEMIA I D/W DR TANG TODAY, OK W PLAN BELOW... Discharge Disposition: Disch w/ Home Health Serv Discharge Instructions DIET: Follow Instructions for: Heart Healthy Diet Activities you can perform: Regular-No Restrictions Follow up Referrals: PCP Follow-up - 1 Week Podiatry - 2-[address] FELDMAN New Medications: Levofloxacin (Levaquin) 500 Mg Tab 500 MG PO DAILY Infection #10 Ref 0 TAB Magnesium Oxide (Magnesium Oxide) 400 Mg Tab 400 MG PO DAILY Nutritional Supplement Days 7 Ref 0 TAB Oxycodone (Oxycodone) 15 Mg Tab 15 MG PO BID PRN PAIN #60 Ref 0 TAB Spironolactone (Spironolactone) 25 Mg Tab 25 MG PO BIDPC edema #180 Ref 11 TAB Changed Medications: Potassium Chloride ER (Klor-Con 10) 10 Meq Tab 10 MEQ PO DAILY four tabs daily for two days then continue one tab daily Electrolyte Replacement Days 90 Ref 0 TAB (Medication details modified) Continued Medications: Furosemide (Furosemide) 40 Mg Tab 40 MG PO DAILY Fluid Overload Ref 0 TAB Gabapentin Liq (Neurontin Liq) 250 Mg/5 Ml Soln 600 MG PO TID Neuropathy Ref 0 ML Pantoprazole (Protonix) 20 Mg Tab 20 MG PO DAILY GERD Ref 0 TAB Discontinued Medications: Amoxicillin-Clavulanate (Augmentin) 500-125 mg Tab 500 MG PO BID Infection #20 Ref 0 TAB Oxycodone (Roxicodone) 5 Mg Tab 5 MG PO Q4H PRN PAIN SCALE 4 TO 10 Ref 0 TAB Steven Navarro MD Apr 24, 2016 10:58
--- NOTE | 2016-04-24 10:58 | HHI.IDPN ---
Subjective Subjective Remarks Notes reviewed D/W Dr Ramon cantrell Overall better CXR better Podiatry notes reviewed - cleared for D/C Antibiotics Zosyn Levaquin Past Medical History Pancytopenia Scleroderma, lupus CREST syndrome Cirrhosis, , esophageal varices Chronic venous stasis ulcer Peripheral neuropathy Splenomegaly Peripheral vascular disease Hypertension Vasculitis Allergies: Coded Allergies: Vancomycin (Verified Allergy, Severe, HIVES, 04/18/16) Cleocin (Verified Allergy, Intermediate, loose stool and diarrhea, ) Minipress (Verified Allergy, Mild, ANXIETY, 04/18/16) Sulfa (Verified Allergy, Unknown, UNKNOWN, 04/18/16) Rocephin (Verified Adverse Reaction, Mild, ANXIETY, 04/18/16) *MDRO Multi-Drug Resistant Organism (Verified Adverse Reaction, Unknown, ESBL, MRSA, 04/19/16) MRSA (leg wound) - 10/05/2015, ESBL+Klebsiella Pneumoniae (leg-01/18/16) Objective . Vital Signs Date Time Temp Pulse Resp B/P Pulse Ox O2 Delivery O2 Flow Rate FiO2 04/24/16 08:00 97.0 81 18 101/61 95 04/23/16 20:00 97.0 80 20 111/64 95 04/23/16 16:00 97.7 65 16 108/77 99 04/23/16 12:41 98 21 04/23/16 12:00 97.4 83 18 110/65 98 04/23/16 04/23/16 04/24/16 15:00 23:00 07:00 Intake Total 600 ml 0 ml 680 ml Output Total 1200 ml 650 ml Balance -600 ml 0 ml 30 ml Intake Oral 600 ml 480 ml IV Total 0 ml 200 ml Output Urine Total 1200 ml 650 ml # Bowel Movements 6 0 . Laboratory Tests Test 04/23/16 04/24/16 05:27 05:21 White Blood Count 3.1 TH/MM3 3.4 TH/MM3 Red Blood Count 2.65 MIL/MM3 2.86 MIL/MM3 Hemoglobin 8.1 GM/DL 8.7 GM/DL Hematocrit 24.4 % 26.4 % Mean Corpuscular Volume 92.2 FL 92.0 FL Mean Corpuscular Hemoglobin 30.4 PG 30.5 PG Mean Corpuscular Hemoglobin 33.0 % 33.1 % Concent Red Cell Distribution Width 17.0 % 17.4 % Platelet Count 97 TH/MM3 111 TH/MM3 Mean Platelet Volume 7.7 FL 7.7 FL Neutrophils (%) (Auto) 82.1 % 74.4 % Lymphocytes (%) (Auto) 12.3 % 18.3 % Monocytes (%) (Auto) 4.8 % 5.2 % Eosinophils (%) (Auto) 0.6 % 1.9 % Basophils (%) (Auto) 0.2 % 0.2 % Neutrophils # (Auto) 2.5 TH/MM3 2.5 TH/MM3 Lymphocytes # (Auto) 0.4 TH/MM3 0.6 TH/MM3 Monocytes # (Auto) 0.1 TH/MM3 0.2 TH/MM3 Eosinophils # (Auto) 0.0 TH/MM3 0.1 TH/MM3 Basophils # (Auto) 0.0 TH/MM3 0.0 TH/MM3 CBC Comment AUTO DIFF AUTO DIFF Differential Total Cells 100 100 Counted Neutrophils % (Manual) 80 % 76 % Band Neutrophils % 8 % 3 % Lymphocytes % 7 % 15 % Monocytes % 3 % 4 % Eosinophils % 1 % Neutrophils # (Manual) 2.8 TH/MM3 2.8 TH/MM3 Metamyelocytes 1 % 1 % Nucleated Red Blood Cells 1 /100 WBC Differential Comment FINAL DIFF FINAL DIFF MANUAL MANUAL Platelet Estimate LOW LOW Platelet Morphology Comment NORMAL NORMAL Tear Drop Cells 1+ Ovalocytes 1+ 2+ Myelocytes 1 % Keratocytes OCC Laboratory Tests Test 04/23/16 04/23/16 04/24/16 05:27 13:25 05:21 Sodium Level 146 MEQ/L 147 MEQ/L Potassium Level 2.8 MEQ/L 2.8 MEQ/L Chloride Level 108 MEQ/L 108 MEQ/L Carbon Dioxide Level 29.4 MEQ/L 28.7 MEQ/L Anion Gap 9 MEQ/L 10 MEQ/L Blood Urea Nitrogen 21 MG/DL 19 MG/DL Creatinine 1.17 MG/DL 1.21 MG/DL Estimat Glomerular Filtration 47 ML/MIN 46 ML/MIN Rate Random Glucose 105 MG/DL 107 MG/DL Lactic Acid Level 2.0 mmol/L Calcium Level 7.8 MG/DL 7.9 MG/DL Magnesium Level 1.6 MG/DL Imaging Lower Extremity Ultrasound 04/18/16 8118 Signed Impressions: Service Date/Time: Tuesday, April 19, 2016 00:31 - CONCLUSION: No DVT in either lower extremity. Floyd Naqvi MD Foot X-Ray 04/18/16 2348 Signed Impressions: Service Date/Time: March 23:56 - CONCLUSION: Diffuse soft tissue swelling. No periosteal reaction or fracture. Possible linear foreign body along the great toe Floyd Naqvi MD Chest X-Ray 04/18/16 2348 Signed Impressions: Service Date/Time: March 23:49 - CONCLUSION: 1. Left upper lobe and right lower lobe airspace disease likely pneumonia. 2. Small right pleural effusion. Floyd Naqvi MD Physical Exam GENERAL: This is a thin, awake and alert, NAD SKIN: Cool and dry. No generalized rash. HEENT: [place] conjunctivae. No scleral icterus. No injection or drainage. Moist oral mucosa. NECK: Supple, nontender, no meningeal signs. CARDIOVASCULAR: Regular rate and rhythm without murmurs, gallops, or rubs. RESPIRATORY: Clear to auscultation. Breath sounds equal bilaterally. No wheezes , rales, or rhonchi. GASTROINTESTINAL: Abdomen distended, with large umbilical hernia, has mild tenderness, no guarding or rebound. MUSCULOSKELETAL: Has BLE pitting edema. Intact dressings to both LE NEUROLOGICAL: Non-focal PSYCH: Appropriate affect, calm and cooperative Assessment & Plan Remarks IMPRESSION CAP, patient with underlying CTD Chronic LE edema, with stasis ulcers (+) C/S PSAE,, Enterococcus and MSSA, mild cellulitis Hx CREST, Lupus, scleroderma Liver cirrhosis RECOMMENDATION Stop Zosyn Continue Levaquin Wound care per podiatry Complete PNA Rx with Levaquin Edema control D/C plans noted D/W Jaylyn Nails MD Apr 24, 2016 10:58
--- NOTE | 2016-04-24 11:00 | HHI.FF ---
Face to Face Verification Diagnosis: (1) Pneumonia (2) Fever (3) Anemia (4) Cirrhosis (5) Peripheral vascular disease (6) Hypertension (7) Severe sepsis (8) CREST (calcinosis, Raynaud's phenomenon, esophageal dysfunction, sclerodactyly, telangiectasia) (9) Protein-calorie malnutrition, moderate (10) Noncompliance (11) Cellulitis of right lower extremity (12) History of esophageal varices (13) Noncompliance w/medication treatment due to intermit use of medication (14) Peripheral neuropathy (15) Foot ulcer (16) Lupus (systemic lupus erythematosus) (17) Venous stasis ulcer (18) Pancytopenia Physical Therapy Order: Evaluate and Treat, Improve ambulation, Strength and gait training Home Health Nursing Order: Medical education Medication education-adverse effect Wound care and dressing changes Nursing assessment with vital signs Home Health Aide Order: To Assist In: Bathing and personal care, iron cutter and meal prep Keycase Assembler Order: To Evaluate: Living conditions/environment, Support services Order: To Provide: Long range planning, Community services I have seen patient Mona Rubi on 04/24/16. My clinical findings support the need for the requested home health care services because: Ltd mobility - disease progression Patient has SOB Deconditioned w/ increased weakness Med compliance is questionable Limited ability to care for self Need for psychosocial assistance High risk of falls Infection w/ risk of complications I certify that my clinical findings support that this patient is homebound because: Unsteady gait/balance Unsafe to leave home unassisted Need for psychosocial assistance Ocu-dvmqkoxqvw-cbqysfke bed/chair Unable to use public transportation Steven Navarro MD Apr 24, 2016 11:00
[2016-04-24] MEDS ORDERED: POTASSIUM CHLORIDE 20 MEQ CONTROLLED RELEASE TAB PO ONE (11:15)
[2016-04-24 12:00] VITALS: BP 124/75; PULSE 78; RESP 16; TEMP 96.5; O2SAT 93
[2016-07-02] MEDS ORDERED: LEVA750T PO (16:13)
[2016-08-01] MEDS ORDERED: LINE1TAB PO (13:29)
[2016-08-08] MEDS ORDERED: PRED20 PO (14:45)
[2016-08-08] MEDS ORDERED: LEVO750T33 PO (14:45)
== END 2016-04-24 14:44 | disposition home health service (06) | DRG 871 ==
LOC: NEPE 19:26 → NEDA 04-19 02:52 → NEPHCDU 04-19 04:04 → N07A 04-19 16:25
PROVIDERS: ADMIT Family Medicine; ATTEND Family Medicine
DX: A41.9 Sepsis, unspecified organism (principal); J18.9 Pneumonia, unspecified organism; D61.818 Other pancytopenia; E87.0 Hyperosmolality and hypernatremia; R18.8 Other ascites; G60.3 Idiopathic progressive neuropathy; E44.0 Moderate protein-calorie malnutrition; L97.919 Non-pressure chronic ulcer of unspecified part of right lower leg with unspecified severity; L03.115 Cellulitis of right lower limb; K74.60 Unspecified cirrhosis of liver; L97.529 Non-pressure chronic ulcer of other part of left foot with unspecified severity; E87.6 Hypokalemia; N81.4 Uterovaginal prolapse, unspecified; M32.13 Lung involvement in systemic lupus erythematosus; M34.1 CR(E)ST syndrome; R65.20 Severe sepsis without septic shock; R16.1 Splenomegaly, not elsewhere classified; I10 Essential (primary) hypertension; G62.9 Polyneuropathy, unspecified; K21.9 Gastro-esophageal reflux disease without esophagitis; Z23 Encounter for immunization; Z86.14 Personal history of Methicillin resistant Staphylococcus aureus infection; Z87.891 Personal history of nicotine dependence; Z88.1 Allergy status to other antibiotic agents; Z88.2 Allergy status to sulfonamides; Z91.14 Patient's other noncompliance with medication regimen; Z91.19 Patient's noncompliance with other medical treatment and regimen
CPT/HCPCS: 11042; 71010; 71020; 73630; 76937; 80048; 80053; 81001; 82088; 82550; 83605; 83735; 83880; 84244; 84484; 85007; 85025; 85027; 85610; 85730; 87040; 87449; 90471; 90732; 93005; 93970; 94640; 94664; 96374; 96375; G0009; J1442; J1940; J1956; J2270; J2405; J2543; J2920; J3480

== ENCOUNTER → 2016-05-24 | Outpatient (CLI) | payer MEDICARE ==
[~2016-05-24] MED LIST changes: -AUGM500T7 PO; +COLL30T TOPICAL; +DEXA4TAB PO; +DOXY100C PO; +DOXY100C35 PO; +IPRASOL NEB; +LEVA250T PO; +LEVA500T PO; +LEVA750T PO; +LEVO750T33 PO; +LINE1TAB PO; +LORA-392 PO; +MAGN400T2 PO; +MULTTAB62 PO; +OXYC15TA PO; -OXYC1TAB13 PO; +PRED20 PO; +PRED50 PO; +SODI0.9I IV; +SPIR25TA PO; +VENTAER INH; +VITA-83 PO; +ZINC220T PO; +[UNRECOGNIZED DRUG - CODE] IV
[2016-05-24 12:09] LABS: AUTOMATED NEUTROPHIL # 4.2 TH/MM3 (1.8-7.7); BASOPHIL % 0.3 % (0.0-2.0); EOSINOPHIL # 0.4 TH/MM3 (0-0.4); EOSINOPHIL % 7.2 % (0.0-4.0); HEMO FLAGS DIFF FINAL; LYMPH % 15.6 % (9.0-44.0); LYMPHOCYTE # 0.9 TH/MM3 (1.0-4.8); MEAN CELL VOLUME 90.4 FL (80.0-100.0); MEAN CORPUSCULAR HEMOGLOBIN 29.6 PG (27.0-34.0); MEAN CORPUSCULAR HGB CONC 32.8 % (32.0-36.0); MONO % 5.1 % (0.0-8.0); NEUT % 71.8 % (16.0-70.0); PLATELET COUNT 153 TH/MM3 (150-450); RED BLOOD COUNT 3.65 MIL/MM3 (4.00-5.30); RED CELL DISTRIBUTION WIDTH 17.8 % (11.6-17.2); WHITE BLOOD COUNT 5.8 TH/MM3 (4.0-11.0)
[2016-05-24 12:19] LABS: INTERNATIONAL NORMALIZED RATIO 1.2 RATIO; PROTHROMBIN TIME - PATIENT 13.2 SEC (9.8-11.6)
[2016-05-24 12:34] LABS: ALT (GPT) 23 U/L (10-53); ANION GAP 4 MEQ/L (5-15); AST (GOT) 42 U/L (15-37); BICARBONATE 30.1 MEQ/L (21.0-32.0); BLOOD UREA NITROGEN 10 MG/DL (7-18); CHLORIDE 110 MEQ/L (98-107); GLOMERULAR FILTRATION RATE 78 ML/MIN (>89); GLUCOSE,FASTING 104 MG/DL (74-99); POTASSIUM 3.7 MEQ/L (3.5-5.1); SODIUM (NA) 144 MEQ/L (136-145)
[2016-05-24 12:36] LABS: ALKALINE PHOSPHATASE 111 U/L (45-117)
== END ==
LOC: CLAB 11:41
PROVIDERS: ATTEND Family Medicine
DX: R58 Hemorrhage, not elsewhere classified (principal); R79.1 Abnormal coagulation profile; Z51.81 Encounter for therapeutic drug level monitoring; Z01.01 Encounter for examination of eyes and vision with abnormal findings
CPT/HCPCS: 36415; 80053; 85025; 85610

== ENCOUNTER 2016-05-31 07:09 | Observation (INO) | payer MEDICARE ==
[~2016-05-31] VITALS: Ht 167.6 cm; Wt 63.5 kg
[~2016-05-31 07:09] MED LIST changes: -COLL30T TOPICAL; -DEXA4TAB PO; -DOXY100C PO; -DOXY100C35 PO; -IPRASOL NEB; -LEVA250T PO; -LEVA500T PO; -LEVA750T PO; -LEVO750T33 PO; -LINE1TAB PO; -LORA-392 PO; -MAGN400T2 PO; -MULTTAB62 PO; -PRED20 PO; -PRED50 PO; -SODI0.9I IV; -VENTAER INH; -VITA-83 PO; -ZINC220T PO; -[UNRECOGNIZED DRUG - CODE] IV
[2016-05-31] MEDS ORDERED: SODIUM CHLORIDE 0.9% 20 ML VIAL ONE (07:20)
[2016-05-31] MEDS ORDERED: ESTROGENS CONJUGATED VAG CREA 15 APPL/30 GM TUBE ONE (07:20)
[2016-05-31] MEDS ORDERED: VASOPRESSIN INJ 20 UNITS/ML VIAL ONE (07:20)
[2016-05-31] MEDS ORDERED: LACTATED RINGER'S 1000 ML INJ 1,000 ML ONE (07:54)
[2016-05-31 08:12] VITALS: BP 103/62; PULSE 105; RESP 16; TEMP 97.8; O2SAT 93
[2016-05-31] MEDS ORDERED: BUPIVACAINE HCL PF 0.25% 30 ML VIAL ONE (09:44)
[2016-05-31] MEDS ORDERED: LIDOCAINE HCL 1% 50 ML VIAL ONE (09:44)
[2016-05-31] MEDS ORDERED: ONDANSETRON HCL 4 MG/2 ML VIAL IV PUSH ONE (12:00)
[2016-05-31] MEDS ORDERED: PROPOFOL 200 MG/20 ML AMP IV ONE (12:00)
[2016-05-31 13:24] LABS: BLOOD, URINE LARGE (NEG); COMMENT (UR) CULT NOT INDICATED; CULTURE IF INDICATED CULT NOT INDICATED; GLUCOSE,URINE NEG (NEG); KETONE, URINE NEG (NEG); NITRITE,URINE NEG (NEG); PH, URINE 6.5 (5.0-8.5); SQUAMOUS EPITHELIAL CELL URINE 1 /hpf (0-5); URINE COLOR YELLOW (YELLW/STRAW)
[2016-05-31] MEDS ORDERED: ONDANSETRON HCL 4 MG/2 ML VIAL IV PUSH PRN (16:45)
[2016-05-31] MEDS: oxyCODONE/ACETAMINOPHEN 7.5 MG/325 MG TAB PO PRN (17:20)
[2016-05-31] MEDS ORDERED: oxyCODONE/ACETAMINOPHEN 7.5 MG/325 MG TAB PO ONE (18:00)
[2016-05-31] MEDS: SODIUM CHLOR 0.9% 1000 ML INJ 1,000 ML IV SCH (18:00)
[2016-05-31] MEDS: SPIRONOLACTONE 25 MG TAB PO SCH (18:49)
[2016-05-31] MEDS: GABAPENTIN 300 MG CAP PO SCH (18:49)
[2016-05-31 20:00] VITALS: BP 86/52; PULSE 96; RESP 20; TEMP 98.9; O2SAT 99
[2016-05-31 21:14] VITALS: O2SAT 95
[2016-06-01] VITALS: BP 84/54; PULSE 94; RESP 18; TEMP 97.8; O2SAT 98
[2016-06-01] MEDS: SODIUM CHLOR 0.9% 1000 ML INJ 1,000 ML IV SCH ×2 (07:20→21:36)
[2016-06-01] MEDS: PANTOPRAZOLE SOD 20 MG DELAYED RELEASE TAB PO SCH (07:56)
[2016-06-01] MEDS: SPIRONOLACTONE 25 MG TAB PO SCH ×2 (07:56→17:37)
[2016-06-01] MEDS: POTASSIUM CHLORIDE 10 MEQ CONTROLLED RELEASE TAB PO SCH (07:56)
[2016-06-01] MEDS: GABAPENTIN 300 MG CAP PO SCH ×3 (07:57→17:37)
[2016-06-01] MEDS: FUROSEMIDE 40 MG TAB PO SCH (07:57)
[2016-06-01 08:00] VITALS: BP 96/59; PULSE 119; RESP 16; TEMP 99.6; O2SAT 91
[2016-06-01 10:40] VITALS: O2SAT 95
[2016-06-01 12:00] VITALS: BP 98/52; PULSE 106; RESP 18; TEMP 99.1; O2SAT 93
--- NOTE | 2016-06-01 12:40 | HHI.DS ---
Discharge Summary Admission Date May 31, 2016 at 16:53 Discharge Date: Jun 01, 2016 Admitting Diagnosis Complete uterine prolapse (1) Complete uterine prolapse Brief History 61 y/o with multiple medical problems underwent leforte colpocleisis for large complete uterine prolapse. The patient has severe vascular disease and dressings on both LEs for stasis ulcers. Her surgery was recently postponed for community acquired pneumonia. She normally walks with a walker due to LE neuropathy. Significant Findings Laboratory Tests Test 05/31/16 12:15 Urine Turbidity HAZY (CLEAR) Urine Protein 30 mg/dL (NEG-TRACE) Urine Occult Blood LARGE (NEG) PE at Discharge Clear to auscultation. Speaking appropriately. Comfortable on her usual pain meds prn. Witnessed arising without assistance and ambulating with walker. Minimal vaginal discharge. Hospital Course Patient did very well intraoperatively, with light general anesthesia plus pudendal block. The block was administered intraoperatively by the surgeon. Post-operatively the patient had some pain and was not able to ambulate as usual. This resolved overnight with rest and support. She is able to ambulate today and to pull herself up to standing without assistance. VS she is at her normal baseline with low B/P, mild tachycardia and saO2 on room air of 95%. She will be discharged home if able to void after Ceballos out. Pt Condition on Discharge: Good Discharge Disposition: Discharge Home Discharge Instructions DIET: Follow Instructions for: As Tolerated, No Restrictions Activities you can perform: Pelvic Rest, See Additionl Instruction Activities to avoid: Driving for 24 hrs, Lifting/Bending, Strenuous Activity Additional Information Patient is to resume usual meds, which should be sufficient to cover any post- operative discomfort. She already has an appointment with me in theoffice Fri Jun 07 at 2:30 and she is aware of this appt. She is to follow up per usual for her wound care and other specialists. Rossi Roldan MD Jun 01, 2016 12:40
[2016-06-01] MEDS: oxyCODONE/ACETAMINOPHEN 7.5 MG/325 MG TAB PO PRN (12:57)
[2016-06-01 16:00] VITALS: BP 91/62; PULSE 106; RESP 16; TEMP 98.2; O2SAT 94
[2016-06-01 20:00] VITALS: BP 90/55; PULSE 98; RESP 22; TEMP 97.3; O2SAT 92
[2016-06-02] VITALS: BP 100/62; PULSE 92; RESP 18; TEMP 97.7; O2SAT 97
[2016-06-02] MEDS: oxyCODONE/ACETAMINOPHEN 7.5 MG/325 MG TAB PO PRN (03:21)
[2016-06-02 04:49] VITALS: BP 100/59; PULSE 74; RESP 16; TEMP 99; O2SAT 95
[2016-06-02] MEDS: SPIRONOLACTONE 25 MG TAB PO SCH (07:51)
[2016-06-02] MEDS: GABAPENTIN 300 MG CAP PO SCH ×2 (07:51→14:08)
[2016-06-02] MEDS: POTASSIUM CHLORIDE 10 MEQ CONTROLLED RELEASE TAB PO SCH (07:52)
[2016-06-02] MEDS: FUROSEMIDE 40 MG TAB PO SCH (07:52)
[2016-06-02] MEDS: PANTOPRAZOLE SOD 20 MG DELAYED RELEASE TAB PO SCH (07:52)
[2016-06-02 08:00] VITALS: BP 91/62; PULSE 91; RESP 18; TEMP 98.8; O2SAT 93
[2016-06-02] MEDS: SODIUM CHLOR 0.9% 1000 ML INJ 1,000 ML IV SCH (10:00)
[2016-06-02 12:00] VITALS: BP 94/64; PULSE 92; RESP 18; TEMP 98.1; O2SAT 94
--- NOTE | 2016-06-02 13:53 | HHI.DS ---
Discharge Summary Admission Date May 31, 2016 at 16:53 Discharge Date: Jun 02, 2016 Admitting Diagnosis (1) Complete uterine prolapse Diagnosis: Principal Brief History 61 y/o with multiple medical problems underwent leforte colpocleisis for large complete uterine prolapse. The patient has severe vascular disease and dressings on both LEs for stasis ulcers. Her surgery was recently postponed for community acquired pneumonia. She normally walks with a walker due to LE neuropathy. Patient was unable to void herbladder for 12 hours after removal of Ceballos catheter. Bladder scan indicated about 300 cc. Ceballos was replaced overnight and removed again this morning. Patient was able to void a normal amount 4 hours later. Significant Findings Laboratory Tests Test 05/31/16 12:15 Urine Turbidity HAZY (CLEAR) Urine Protein 30 mg/dL (NEG-TRACE) Urine Occult Blood LARGE (NEG) PE at Discharge Clear to auscultation. Speaking appropriately. Comfortable on her usual pain meds prn. Witnessed arising without assistance and ambulating with walker. Minimal vaginal discharge. Pt Condition on Discharge: Good Discharge Disposition: Discharge Home Discharge Instructions DIET: Follow Instructions for: As Tolerated, No Restrictions Activities you can perform: Pelvic Rest, See Additionl Instruction Activities to avoid: Driving for 24 hrs, Lifting/Bending, Strenuous Activity Rossi Roldan MD Jun 02, 2016 13:53
--- NOTE | 2016-06-03 11:50 | MP ---
cc: ROSSI ROLDAN MD DATE OF SURGERY: 03/30/2017 PREOPERATIVE DIAGNOSIS Total uterine procidentia, multiple medical problems. POSTOPERATIVE DIAGNOSIS Total uterine procidentia, multiple medical problems, perineocele. OPERATION LeFort colpocleisis, hysteroscopy and dilation and curettage and perineoplasty. SURGEON Rossi Roldan MD ANESTHESIA General by LMA, Dr. Chapman. COMPLICATIONS None. ESTIMATED BLOOD LOSS 200 ccs. SPECIMEN Endometrial curettings. 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 This has inhibited her ability to walk to avoid and to sit comfortably. The patient has been planning a vaginal closure with a LeFort style colpocleisis but has been delayed several times due to pneumonia and other medical problems. The procedure is planned with the help of a pudendal block in order to reduce her need for anesthesia. FINDINGS At the time of hysteroscopy, the patient was found to have a uterus that sounded to 9 cm. The cervix and endometrial cavity were both long and narrow, both tubal ostia were seen and the endometrium appeared extremely atrophic. The prolapse itself had a redundant posterior wall versus the anterior wall. The patient's perineum is very attenuated and thin. There is no appreciable perineal body and she has a very patulous anal sphincter. This was all considered at the end of the repair and a perineoplasty was added in order to decrease the chance of failure and also to provide some pelvic support. PROCEDURE The patient was taken to the operating room, placed supine on the operating room table. After general anesthesia by LMA she was prepped and draped using Yellofin stirrups. A Ceballos catheter was placed and the uterine cervix was dilated to accept a hysteroscope, it was sounded and the hysteroscope revealed an empty endometrial cavity. Scant curettings were obtained with a sharp curette. That portion of the procedure being over the vaginal prolapse was measured and on the posterior wall was found to be every 5 cms wide and 8-1/2 cm long and this was the area demarcated with a methylene blue pen. This was done both anteriorly and posteriorly with some redundancy remaining posteriorly but using the anterior access to the introitus. A pudendal block was then placed by pushing the uterus back into the vagina, palpating for the ischial spines and then using 10 ccs of 50/50 mix of 0.25% Marcaine and 1% lidocaine without epinephrine. 5 ccs were injected at each ischial spine drawing back to make sure there was no intravascular injection first. After this was done a Ceballos catheter was placed and a UA and C&S were collected as planned. All of the urine did appear clear. Then using the demarcations on the vagina the vaginal mucosa was tediously peeled from the uterus both anterior and posterior. This was done with the assistance of some dilute injection without epinephrine but the planes were difficult to develop because of the hyperkeratosis and ulceration produced by her longstanding complete procidentia. Therefore, dissection was tedious and was done section by section starting closest to the cervix and then performing the colpocleisis uniting the anterior and posterior ruano and then continuing with the neck section, a total of four sections were used, at the point at which the anterior vagina was sewn to the posterior wall of the vagina, there was still some denuded posterior vaginal wall present. The patient was also noted to have minimal pelvic support with a completely attenuated perineal body, retracted bulbocavernosus and transverse perinei muscles and a very slack rectal sphincter. Therefore, an episiotomy type incision was performed and was denuded of mucosa to the introitus. Then using 2-0 Vicryl a bite was taken to reapproximate the rectal sphincter at the 12 o'clock position and another one for the transverse perinei and a third deep suture re-approximating the bulbocavernosus bodies. The defect in the mucosa was then closed with 3-0 Vicryl and running locked fashion out to the introitus and then continuing subcuticularly across the perineal body. 2-0 and 3-0 Vicryl had been used throughout the case and the reduction of the prolapse and approximation of the colpocleisis. Post procedure the urine remained clear and the tunnels on either side of the closure were probed and found to be patent. A rectal exam was performed to make sure there were no perforating sutures or significant plication of the rectal wall and this was normal. The Ceballos catheter was then removed and the patient was awakened and transferred to the recovery room awake and breathing on her own. She tolerated the procedure well. Sponge, needle and instrument counts were correct. MD MERE Wilder/TLL /1:22 PM /11:12 AM MTDD
[2016-07-02] MEDS ORDERED: LEVA750T PO (16:13)
[2016-08-01] MEDS ORDERED: LINE1TAB PO (13:29)
[2016-08-08] MEDS ORDERED: PRED20 PO (14:45)
[2016-08-08] MEDS ORDERED: LEVO750T33 PO (14:45)
== END 2016-06-02 14:25 | disposition home or self-care (01) ==
LOC: HSDC 07:09 → HSDI 16:53 → N07A 18:32
PROVIDERS: ADMIT Obstetrics & Gynecology; ATTEND Obstetrics & Gynecology
DX: N81.3 Complete uterovaginal prolapse (principal); N81.81 Perineocele; N72 Inflammatory disease of cervix uteri; K74.60 Unspecified cirrhosis of liver; G62.9 Polyneuropathy, unspecified; R00.0 Tachycardia, unspecified; I10 Essential (primary) hypertension; J44.9 Chronic obstructive pulmonary disease, unspecified
CPT/HCPCS: 00942; 57120; 58558; 81001; 88305; 94640; 97163; G0378; G8987; G8988; J2405; J3010; J7030; J7120

== ENCOUNTER 2016-06-19 17:12 | Emergency (ER) | payer MEDICARE ==
[~2016-06-19] VITALS: Ht 167.6 cm; Wt 61.5 kg
[2016-06-19 17:14] VITALS: BP 102/66; PULSE 108; RESP 20; TEMP 98.3; O2SAT 93
[2016-06-19] MEDS ORDERED: LEVOFLOXACIN 750 MG PREMIX INJ 150 ML IV ONE (19:30)
[2016-06-19] MEDS ORDERED: SODIUM CHLORIDE 0.9% FLUSH 5 ML FLUSH IVF PRN (19:30)
--- NOTE | 2016-06-19 19:35 | PD ---
HPI . Fever and shortness of breath Chief Complaint: Respiratory Symptoms Time Seen by Provider: 19:02 Travel History International Travel<30 days: No Contact w/Intl Traveler<30days: No Traveled to known affect area: No History of Present Illness HPI Patient presents with about a 2 day history of fever and shortness of breath. She denies any upper respiratory symptoms. She has no sputum production. She does complain of cough and wheezing. PFSH Past Medical History Autoimmune Disease: Yes (VASCULITIS, CONNECTIVE TISSUE DISEASE) Anxiety: No Depression: No Heart Rhythm Problems: No Cancer: No Cardiovascular Problems: No High Cholesterol: No Chest Pain: No Congestive Heart Failure: No Cirrhosis: Yes Cerebrovascular Accident: No Diabetes: No Diminished Hearing: No Endocrine: No Gastrointestinal Disorders: Yes GERD: Yes Genitourinary: No Headaches: No Hepatitis: No Hiatal Hernia: No Immune Disorder: Yes (LUPUS, CREST) Kidney Stones: No Musculoskeletal: Yes (TENDONITIS, CREST) Neurologic: Yes (NEUROPATHY LEFT LEG, PINKY FINGERS AND RING FINGERS) Psychiatric: No Reproductive: No Respiratory: No Migraines: No Renal Failure: No Seizures: No Thyroid Disease: No Ulcer: No ?: Not Menopausal: Yes Past Surgical History Abdominal Surgery: No AICD: No Cardiac Surgery: No Endocrine Surgery: No Genitourinary Surgery: No Joint Replacement: No Oral Surgery: Yes (ESOPHAGEAL SX? T&A) Pacemaker: No Thoracic Surgery: No Tonsillectomy: Yes Other Surgery: Yes (tonsilectomy) Social History Alcohol Use: No Tobacco Use: No (QUIT 02/02) Substance Use: No Allergies-Medications (Allergen,Severity, Reaction): Coded Allergies: Vancomycin (Verified Allergy, Severe, HIVES, 06/13/16) Cleocin (Verified Allergy, Intermediate, loose stool and diarrhea, 06/13/16 ) Minipress (Verified Allergy, Mild, ANXIETY, 06/13/16) Sulfa (Verified Allergy, Unknown, UNKNOWN, 06/13/16) Rocephin (Verified Adverse Reaction, Mild, ANXIETY, 06/13/16) *MDRO Multi-Drug Resistant Organism (Verified Adverse Reaction, Unknown, ESBL, MRSA, 06/13/16) MRSA (leg wound) - 10/05/2015, ESBL+Klebsiella Pneumoniae (leg-01/18/16) Reported Meds & Prescriptions Reported Meds & Active Scripts Active Oxycodone (Oxycodone HCl) 15 Mg Tab 15 Mg PO BID PRN Spironolactone 25 Mg Tab 25 Mg PO BIDPC Klor-Con 10 (Potassium Chloride) 10 Meq Tab 10 Meq PO DAILY 90 Days four tabs daily for two days then continue one tab daily Reported Protonix (Pantoprazole Sodium) 20 Mg Tab 20 Mg PO DAILY Neurontin Liq (Gabapentin) 250 Mg/5 Ml Soln 600 Mg PO TID Furosemide 40 Mg Tab 40 Mg PO DAILY Review of Systems Except as stated in HPI: all other systems reviewed are Neg General / Constitutional: Positive: Fever, Chills HENT: No: Sore Throat, Rhinorrhea, Congestion Cardiovascular: No: Chest Pain or Discomfort Respiratory: Positive: Cough, Shortness of Breath, Wheezing Gastrointestinal: Positive: Other (umbilical hernia and ascites secondary to cirrhosis), No: Nausea, Vomiting, Diarrhea, Abdominal Pain Genitourinary: No: Urgency, Frequency, Dysuria Physical Exam Narrative GENERAL: Chronically ill-appearing woman. She is very thin. SKIN: Warm and dry. HEAD: Atraumatic. Normocephalic. EYES: Pupils equal and round. ENT: No nasal bleeding or discharge. Mucous membranes pink and moist. NECK: Trachea midline. Neck is supple. CARDIOVASCULAR: Regular rate and rhythm. Heart sounds are normal. RESPIRATORY: No accessory muscle use. Her lungs have diffuse fine crackles. GASTROINTESTINAL: Abdomen soft, non-tender. She has a large umbilical hernia which is nontender. MUSCULOSKELETAL: No obvious deformities. No edema. NEUROLOGICAL: Awake and alert. No obvious cranial nerve deficits. Motor grossly within normal limits. Normal speech. PSYCHIATRIC: Appropriate mood and affect; insight and judgment normal. Data Data Last Documented VS Vital Signs Date Time Temp Pulse Resp B/P Pulse Ox O2 Delivery O2 Flow Rate FiO2 06/19/16 19:05 92 25 97 Room Air 06/19/16 17:14 98.3 102/66 Orders Complete Blood Count With Diff (06/19/16 19:30) Comprehensive Metabolic Panel (06/19/16 19:30) Lactic Acid Sepsis Protocol (06/19/16 19:30) Influenzae A/B Antigen (06/19/16 19:30) Blood Culture (06/19/16 19:30) Chest, Single Ap (06/19/16 19:30) Iv Access Insert/Monitor (06/19/16 19:30) Sodium Chloride 0.9% Flush (Ns Flush) (06/19/16 19:30) Levofloxacin 750 Mg Premix Inj (Levaquin (06/19/16 19:30) Labs Laboratory Tests Test 06/19/16 06/19/16 19:30 20:00 White Blood Count 8.4 TH/MM3 Red Blood Count 3.54 MIL/MM3 Hemoglobin 10.5 GM/DL Hematocrit 32.7 % Mean Corpuscular Volume 92.2 FL Mean Corpuscular Hemoglobin 29.8 PG Mean Corpuscular Hemoglobin 32.3 % Concent Red Cell Distribution Width 20.1 % Platelet Count 177 TH/MM3 Mean Platelet Volume 7.6 FL Neutrophils (%) (Auto) 80.9 % Lymphocytes (%) (Auto) 10.1 % Monocytes (%) (Auto) 3.2 % Eosinophils (%) (Auto) 5.6 % Basophils (%) (Auto) 0.2 % Neutrophils # (Auto) 6.8 TH/MM3 Lymphocytes # (Auto) 0.8 TH/MM3 Monocytes # (Auto) 0.3 TH/MM3 Eosinophils # (Auto) 0.5 TH/MM3 Basophils # (Auto) 0.0 TH/MM3 CBC Comment DIFF FINAL Differential Comment Sodium Level 138 MEQ/L Potassium Level 4.1 MEQ/L Chloride Level 106 MEQ/L Carbon Dioxide Level 24.4 MEQ/L Anion Gap 8 MEQ/L Blood Urea Nitrogen 17 MG/DL Creatinine 0.87 MG/DL Estimat Glomerular Filtration 67 ML/MIN Rate Random Glucose 115 MG/DL Calcium Level 8.0 MG/DL Total Bilirubin 0.7 MG/DL Aspartate Amino Transf 45 U/L (AST/SGOT) Alanine Aminotransferase 30 U/L (ALT/SGPT) Alkaline Phosphatase 142 U/L Total Protein 5.6 GM/DL Albumin 1.9 GM/DL Lactic Acid Level 2.3 mmol/L MDM Medical Decision Making Medical Screen Exam Complete: Yes Emergency Medical Condition: Yes Medical Record Reviewed: Yes (medical history is significant for hypertension, lupus, cirrhosis) Interpretation(s) EKG shows a sinus rhythm with a rate of 94. She has low voltage. It is unchanged from previous. Differential Diagnosis Differential diagnosis of dyspnea includes but is not limited to congestive heart failure, pneumonia, wheezing, pneumothorax, pulmonary embolism Narrative Course This is a chronically ill woman who presents with the chief complaint of fever and shortness of breath. Pneumonia workup has been initiated. She reports a drug allergy to Rocephin. Therefore, she has been given Levaquin empirically. CBC & BMP Diagram 06/19/16 19:30 Last Impressions Chest X-Ray 06/19/16 1930 Signed Impressions: Service Date/Time: Sunday, June 19, 2016 19:33 - CONCLUSION: No evidence of significant congestion or acute air space disease. Jaspreet Yost MD The chest x-ray was independently viewed by me. The patient has been maintained in the emergency department off of oxygen has had no respiratory distress. She is stable for discharge to home. I will treat her with an albuterol MDI and steroids. Diagnosis Primary Impression: Bronchitis Patient Instructions: Acute Bronchitis (DC), General Instructions Med/Other Pt SpecificInfo: Prescription(s) given Scripts Prednisone 50 Mg Tab50 Mg PO DAILY 5 Days Ref 0 Prov:Ashley Blake MD 06/19/16 Albuterol 18 GM Inh (Ventolin Hfa 18 GM Inh)90 Mcg/Act Aer2 Puff INH Q4-6H PRN ( SHORTNESS OF BREATH) #1 INHALER Ref 0 Prov:Ashley Blake MD 06/19/16 Disposition: 01 DISCHARGE HOME Condition: Stable Ashley Blake MD Jun 19, 2016 19:35
[2016-06-19 19:56] LABS: AUTOMATED NEUTROPHIL # 6.8 TH/MM3 (1.8-7.7); BASOPHIL % 0.2 % (0.0-2.0); EOSINOPHIL # 0.5 TH/MM3 (0-0.4); EOSINOPHIL % 5.6 % (0.0-4.0); HEMATOCRIT 32.7 % (35.0-46.0); HEMO FLAGS DIFF FINAL; LYMPH % 10.1 % (9.0-44.0); LYMPHOCYTE # 0.8 TH/MM3 (1.0-4.8); MEAN CELL VOLUME 92.2 FL (80.0-100.0); MEAN CORPUSCULAR HEMOGLOBIN 29.8 PG (27.0-34.0); MEAN CORPUSCULAR HGB CONC 32.3 % (32.0-36.0); MONO % 3.2 % (0.0-8.0); NEUT % 80.9 % (16.0-70.0); PLATELET COUNT 177 TH/MM3 (150-450); RED BLOOD COUNT 3.54 MIL/MM3 (4.00-5.30); RED CELL DISTRIBUTION WIDTH 20.1 % (11.6-17.2); WHITE BLOOD COUNT 8.4 TH/MM3 (4.0-11.0)
[2016-06-19 20:21] LABS: ANION GAP 8 MEQ/L (5-15); AST (GOT) 45 U/L (15-37); BICARBONATE 24.4 MEQ/L (21.0-32.0); BLOOD UREA NITROGEN 17 MG/DL (7-18); CHLORIDE 106 MEQ/L (98-107); GLOMERULAR FILTRATION RATE 67 ML/MIN (>89); POTASSIUM 4.1 MEQ/L (3.5-5.1); SODIUM (NA) 138 MEQ/L (136-145)
[2016-06-19 20:25] LABS: ALKALINE PHOSPHATASE 142 U/L (45-117); ALT (GPT) 30 U/L (10-53); TOTAL BILIRUBIN ADULT 0.7 MG/DL (0.2-1.0)
--- NOTE | 2016-06-19 20:27 | RADRPT ---
EXAM DATE/TIME: 06/19/2016 19:33 [facility] COMPARISON: CHEST PA & LAT, April 22, 2016, 14:23. CHEST SINGLE AP, April 18, 2016, 23:49. INDICATIONS : Shortness of breath. MEDICAL HISTORY : Gastroesophageal reflux disease. Peripheral vascular disease. Cirrhosis. lupus. vasculitis. SURGICAL HISTORY : Tonsillectomy. Esophageal varices surgery. ENCOUNTER: Initial ACUITY: 1 day PAIN SCORE: 0/10 LOCATION: Bilateral chest FINDINGS: The lungs remain free of significant congestion or consolidating airspace disease. Right pleural effu christian has resolved. Heart and mediastinal structures are stable. CONCLUSION: No evidence of significant congestion or acute air space disease. Jaspreet Yost MD on June 19, 2016 at 20:24 Board Certified Radiologist. This report was verified electronically.
[2016-06-19] MEDS ORDERED: PRED50 PO (21:21)
[2016-06-19] MEDS ORDERED: VENTAER INH (21:21)
[2016-06-19 22:17] LABS: LACTIC ACID GHOST NOT REPORTABLE
--- NOTE | 2016-06-20 23:53 | EKG ---
Date Performed: 06/19/2016 Time Performed: 19:12:54 PTAGE: 61 years EKG: Sinus rhythm LOW QRS VOLTAGE IN PRECORDIAL LEADS SEPTAL MYOCARDIAL INFARCTION ABNORMAL ECG NO PREVIOUS TRACING DOCTOR: Vlad Lewis Interpretating Date/Time 06/20/2016 23:51:41
[2016-07-02] MEDS ORDERED: LEVA750T PO (16:13)
[2016-08-01] MEDS ORDERED: LINE1TAB PO (13:29)
[2016-08-08] MEDS ORDERED: PRED20 PO (14:45)
[2016-08-08] MEDS ORDERED: LEVO750T33 PO (14:45)
== END 2016-06-19 22:06 | disposition home or self-care (01) ==
LOC: NEPA 17:12
DX: J40 Bronchitis, not specified as acute or chronic (principal); R94.31 Abnormal electrocardiogram [ECG] [EKG]
CPT/HCPCS: 71010; 80053; 83605; 85025; 87040; 87804; 93005; 96365; 99284; J1956

== ENCOUNTER 2016-08-13 12:25 | Inpatient (IN) | payer MEDICARE ==
[~2016-08-13] VITALS: Ht 167.6 cm; Wt 47.1 kg
[~2016-08-13 12:25] MED LIST changes: +LEVO750T33 PO; +LINE1TAB PO; +PRED20 PO; +VENTAER INH
[2016-08-13 12:26] VITALS: BP 163/75; PULSE 77; RESP 15; TEMP 98.4; O2SAT 98
--- NOTE | 2016-08-13 12:37 | PD ---
Physical Exam Date Seen by Provider: Aug 13, 2016 Time Seen by Provider: 12:33 Narrative Pt is a 61 year old female presenting to the ED for evaluation of a hernia. She states her umbilical hernia is leaking. Pt reports that a pin hole sized leak in her abdomen, leaking clear fluid. Pt was at pain management yesterday when she noticed the leak. She see's pain management for skin ulcers, prolapsed uterus. She states her uterus is not inside her. VSS, awaiting bed placement. Data Data Last Documented VS Vital Signs Date Time Temp Pulse Resp B/P Pulse Ox O2 Delivery O2 Flow Rate FiO2 08/13/16 12:26 98.4 77 15 163/75 98 MDM Supervised Visit with MARCY: Joanna Dutta Aug 13, 2016 12:37
--- NOTE | 2016-08-13 13:12 | PD ---
HPI Chief Complaint: Lump, Cyst, Hernia Time Seen by Provider: 12:40 Travel History International Travel<30 days: No Contact w/Intl Traveler<30days: No Traveled to known affect area: No History of Present Illness HPI This is a 61-year-old female who has a history of mixed connective tissue disease who presents to the emergency department having started to have leaking from her umbilical hernia that started yesterday. She says prior to that her abdomen was quite swollen. She does have a history of cirrhosis. She says yesterday she started to notice clear fluid leaking from near her belly button and she's been soaking through multiple towels. She came in today because one of her outpatient providers was concerned. She denies any fevers, chills, or abdominal pain. She did recently have a vaginal prolapse repair which failed. PFSH Past Medical History Autoimmune Disease: Yes (VASCULITIS, CONNECTIVE TISSUE DISEASE) Anxiety: No Depression: No Heart Rhythm Problems: No Cancer: No Cardiovascular Problems: No High Cholesterol: No Chest Pain: No Congestive Heart Failure: No Cirrhosis: Yes Cerebrovascular Accident: No Diabetes: No Diminished Hearing: No Endocrine: No Gastrointestinal Disorders: Yes GERD: Yes Genitourinary: No Headaches: No Hepatitis: No Hiatal Hernia: No Immune Disorder: Yes (LUPUS, CREST) Kidney Stones: No Musculoskeletal: Yes (TENDONITIS, CREST) Neurologic: Yes (NEUROPATHY LEFT LEG, PINKY FINGERS AND RING FINGERS) Psychiatric: No Reproductive: No Respiratory: Yes (PNEUMONIA / BRONCHITIS) Migraines: No Renal Failure: No Seizures: No Thyroid Disease: No Ulcer: No ?: Not Menopausal: Yes Past Surgical History Abdominal Surgery: No AICD: No Cardiac Surgery: No Endocrine Surgery: No Genitourinary Surgery: No Joint Replacement: No Oral Surgery: Yes (ESOPHAGEAL SX? T&A) Pacemaker: No Thoracic Surgery: No Tonsillectomy: Yes Other Surgery: Yes (tonsilectomy) Social History Alcohol Use: No Tobacco Use: No Substance Use: No Allergies-Medications (Allergen,Severity, Reaction): Coded Allergies: Vancomycin (Verified Allergy, Severe, HIVES, 08/13/16) Cleocin (Verified Allergy, Intermediate, loose stool and diarrhea, 08/13/16 ) Minipress (Verified Allergy, Mild, ANXIETY, 08/13/16) Sulfa (Verified Allergy, Unknown, UNKNOWN, 08/13/16) Rocephin (Verified Adverse Reaction, Mild, ANXIETY, 08/13/16) *MDRO Multi-Drug Resistant Organism (Verified Adverse Reaction, Unknown, ESBL, MRSA, 08/13/16) MRSA (leg wound) - 10/05/2015, ESBL+Klebsiella Pneumoniae (leg-01/18/16) Reported Meds & Prescriptions Reported Meds & Active Scripts Active Ventolin Hfa 18 GM Inh (Albuterol Sulfate) 90 Mcg/Act Aer 2 Puff INH Q4-6H PRN Oxycodone (Oxycodone HCl) 15 Mg Tab 15 Mg PO BID PRN Spironolactone 25 Mg Tab 25 Mg PO BIDPC Klor-Con 10 (Potassium Chloride) 10 Meq Tab 10 Meq PO DAILY 90 Days four tabs daily for two days then continue one tab daily Reported Levofloxacin 750 Mg Tab 750 Mg PO DAILY Protonix (Pantoprazole Sodium) 20 Mg Tab 20 Mg PO BID Neurontin Liq (Gabapentin) 250 Mg/5 Ml Soln 600 Mg PO TID Furosemide 40 Mg Tab 40 Mg PO DAILY Review of Systems Except as stated in HPI: all other systems reviewed are Neg Physical Exam Narrative GENERAL: Chronically ill-appearing, thin SKIN: Bilateral lower extremities are wrapped with Davis wraps, clear fluid from the umbilicus HEAD: Atraumatic. Normocephalic. EYES: Pupils equal and round. No injection or drainage. ENT: Moist mucous membranes NECK: Trachea midline. CARDIOVASCULAR: Regular rate and rhythm. No murmur appreciated. RESPIRATORY: Clear to auscultation. Breath sounds equal bilaterally. GASTROINTESTINAL: Abdomen soft, palpable umbilical hernia, nontender MUSCULOSKELETAL: No obvious deformities. NEUROLOGICAL: Awake and alert. No obvious cranial nerve deficits. Moving all extremities. PSYCHIATRIC: Appropriate mood and affect; insight and judgment normal. Data Data Last Documented VS Vital Signs Date Time Temp Pulse Resp B/P Pulse Ox O2 Delivery O2 Flow Rate FiO2 08/13/16 12:26 98.4 77 15 163/75 98 Orders Complete Blood Count With Diff (08/13/16 12:49) Comprehensive Metabolic Panel (08/13/16 12:49) Prothrombin Time / Inr (Pt) (08/13/16 12:49) Act Partial Throm Time (Ptt) (08/13/16 12:49) ^ Insert Iv (08/13/16 12:49) Ct Abd/Pel W Iv Contrast(Rout) (08/13/16 ) Electrocardiogram (08/13/16 ) Iohexol 350 Inj (Omnipaque 350 Inj) (08/13/16 14:44) Admit Order (Ed Use Only) (08/13/16 15:26) Levofloxacin 750 Mg Premix Inj (Levaquin (08/13/16 15:30) Labs Laboratory Tests Test 08/13/16 13:20 White Blood Count 11.3 TH/MM3 Red Blood Count 4.48 MIL/MM3 Hemoglobin 12.8 GM/DL Hematocrit 40.2 % Mean Corpuscular Volume 89.7 FL Mean Corpuscular Hemoglobin 28.5 PG Mean Corpuscular Hemoglobin 31.8 % Concent Red Cell Distribution Width 19.4 % Platelet Count 129 TH/MM3 Mean Platelet Volume 7.5 FL Neutrophils (%) (Auto) 79.7 % Lymphocytes (%) (Auto) 9.5 % Monocytes (%) (Auto) 6.6 % Eosinophils (%) (Auto) 3.8 % Basophils (%) (Auto) 0.4 % Neutrophils # (Auto) 9.0 TH/MM3 Lymphocytes # (Auto) 1.1 TH/MM3 Monocytes # (Auto) 0.7 TH/MM3 Eosinophils # (Auto) 0.4 TH/MM3 Basophils # (Auto) 0.0 TH/MM3 CBC Comment AUTO DIFF Differential Comment AUTO DIFF CONFIRMED Platelet Estimate LOW Platelet Morphology Comment NORMAL Ovalocytes 1+ Acanthocytes OCC Keratocytes OCC Prothrombin Time 14.0 SEC Prothromb Time International 1.3 RATIO Ratio Activated Partial 29.8 SEC Thromboplast Time Sodium Level 138 MEQ/L Potassium Level 5.7 MEQ/L Chloride Level 105 MEQ/L Carbon Dioxide Level 23.7 MEQ/L Anion Gap 9 MEQ/L Blood Urea Nitrogen 20 MG/DL Creatinine 1.03 MG/DL Estimat Glomerular Filtration 55 ML/MIN Rate Random Glucose 111 MG/DL Calcium Level 7.6 MG/DL Total Bilirubin 1.6 MG/DL Aspartate Amino Transf 87 U/L (AST/SGOT) Alanine Aminotransferase 24 U/L (ALT/SGPT) Alkaline Phosphatase 117 U/L Total Protein 5.3 GM/DL Albumin 1.6 GM/DL MDM Medical Decision Making Medical Screen Exam Complete: Yes Emergency Medical Condition: Yes Interpretation(s) Afebrile, no tachycardia, hypertensive Mild leukocytosis Hyperkalemia likely hemolyzed Total bilirubin is 1.6 Last 24 hours Impressions Abdomen/Pelvis CT 08/13/16 0000 Signed Impressions: Service Date/Time: Saturday, August 13, 2016 14:25 - CONCLUSION: 1. Inhomogeneous cirrhotic appearing liver with no focal mass. 2. Moderate splenomegaly with large splenic varices. 3. Diffuse anasarca. 4. Apparent eventration of the right hemidiaphragm with large amount of fluid. Obed Baird MD Differential Diagnosis Ascites leak, seroma, cyst, hernia, peritonitis Narrative Course This is a chronically ill female with a history mixed connective tissue disease who presents to the emergency department with leakage from an umbilical hernia since yesterday. The patient has a history of cirrhosis. She was placed on a monitor and an IV was established. Labs are consistent with cirrhosis. CT imaging demonstrates a large amount of ascites. I spoke to Dr. Ferris who was on- call for surgery. He recommended this be managed conservatively with aggressive diuresis and antibiotic coverage for prophylaxis against peritonitis. I spoke to Dr. Navarro was agreeable to admit the patient. Physician Communication Physician Communication Discussed with Dr. Navarro and Dr. Ferris Diagnosis Primary Impression: Poorly controlled ascites Admitting Information Admitting Physician Requests: Admit Mariela Flaherty MD Aug 13, 2016 13:12
[2016-08-13 13:32] LABS: BASOPHIL % 0.4 % (0.0-2.0); EOSINOPHIL # 0.4 TH/MM3 (0-0.4); EOSINOPHIL % 3.8 % (0.0-4.0); HEMATOCRIT 40.2 % (35.0-46.0); LYMPH % 9.5 % (9.0-44.0); LYMPHOCYTE # 1.1 TH/MM3 (1.0-4.8); MEAN CELL VOLUME 89.7 FL (80.0-100.0); MEAN CORPUSCULAR HEMOGLOBIN 28.5 PG (27.0-34.0); MEAN CORPUSCULAR HGB CONC 31.8 % (32.0-36.0); MONO % 6.6 % (0.0-8.0); NEUT % 79.7 % (16.0-70.0); PLATELET COUNT 129 TH/MM3 (150-450); RED BLOOD COUNT 4.48 MIL/MM3 (4.00-5.30); RED CELL DISTRIBUTION WIDTH 19.4 % (11.6-17.2); WHITE BLOOD COUNT 11.3 TH/MM3 (4.0-11.0)
[2016-08-13 13:33] LABS: HEMO FLAGS AUTO DIFF
[2016-08-13 13:39] LABS: APTT (PATIENT) 29.8 SEC (24.3-30.1); INTERNATIONAL NORMALIZED RATIO 1.3 RATIO
[2016-08-13 14:13] LABS: ALKALINE PHOSPHATASE 117 U/L (45-117); ALT (GPT) 24 U/L (10-53); ANION GAP 9 MEQ/L (5-15); AST (GOT) 87 U/L (15-37); BICARBONATE 23.7 MEQ/L (21.0-32.0); BLOOD UREA NITROGEN 20 MG/DL (7-18); CHLORIDE 105 MEQ/L (98-107); GLOMERULAR FILTRATION RATE 55 ML/MIN (>89); POTASSIUM 5.7 MEQ/L (3.5-5.1); SODIUM (NA) 138 MEQ/L (136-145); TOTAL BILIRUBIN ADULT 1.6 MG/DL (0.2-1.0)
[2016-08-13 14:21] LABS: ACANTHOCYTES OCC (NORMAL); KERATOCYTES OCC (NORMAL); OVALOCYTES 1+ (NORMAL); PLATELET ESTIMATE SMEAR LOW (NORMAL); PLATELET MORPHOLOGY NORMAL (NORMAL); SCAN/DIFF AUTO DIFF CONFIRMED
[2016-08-13] MEDS ORDERED: IOHEXOL 350 MG/ML 50 ML BTL (for RAD DIAG) IV ONE (14:44)
--- NOTE | 2016-08-13 15:15 | RADRPT ---
EXAM DATE/TIME: 08/13/2016 14:25 [facility] COMPARISON: CHEST SINGLE AP, June 19, 2016, 19:33. INDICATIONS : Serous fluid draining from umbilical hernia. IV CONTRAST: 80 cc Omnipaque 350 (iohexol) IV ORAL CONTRAST: No oral contrast ingested. RADIATION DOSE: 9.96 CTDIvol (mGy) MEDICAL HISTORY : Cirrhosis. Lupus. Vaginal prolaspe SURGICAL HISTORY : None. ENCOUNTER: Initial ACUITY: 2 days PAIN SCALE: 5/10 LOCATION: Umbilical TECHNIQUE: Volumetric scanning of the abdomen and pelvis was performed. Using automated exposure control and ad justment of the mA and/or kV according to patient size, radiation dose was kept as low as reasonably achievable to obtain optimal diagnostic quality images. FINDINGS: LOWER LUNGS: There is apparent eventration of the right hemidiaphragm with fluid extending into the eventration. T here is a small right effusion as well. LIVER: The liver is mildly inhomogeneous and cirrhotic in appearance with no focal mass or ductal dilatation . The gallbladder appears unremarkable. There is a small to moderate amount of ascitic fluid present. SPLEEN: There is moderate splenomegaly with no focal mass. There are multiple splenic varices including a lar ge varices measuring up to approximately 2.2 cm in diameter. PANCREAS: Within normal limits. KIDNEYS: Normal in size and shape. There is no mass, stone or hydronephrosis. ADRENAL GLANDS: Within normal limits. VASCULAR: There is no aortic aneurysm. BOWEL/MESENTERY: The stomach, small bowel, and colon demonstrate no acute abnormality. There is no free intraperitone al air. ABDOMINAL WALL: There is no evidence of a hernia. There is disuse anasarca with low-density fluid throughout the subc utaneous tissue as well as portions of the mesentery. RETROPERITONEUM: There is no lymphadenopathy. BLADDER: No wall thickening or mass. REPRODUCTIVE: Within normal limits. INGUINAL: There is no lymphadenopathy or hernia. MUSCULOSKELETAL: Within normal limits for patient age. CONCLUSION: 1. Inhomogeneous cirrhotic appearing liver with no focal mass. 2. Moderate splenomegaly with large splenic varices. 3. Diffuse anasarca. 4. Apparent eventration of the right hemidiaphragm with large amount of fluid. Obed Baird MD on August 13, 2016 at 15:05 Board Certified Radiologist. This report was verified electronically.
[2016-08-13] MEDS ORDERED: LEVOFLOXACIN 750 MG PREMIX INJ 150 ML IV ONE (15:30)
[2016-08-13] MEDS ORDERED: NALOXONE HCL 0.4 MG/ML AMP IV PRN (15:45)
[2016-08-13] MEDS ORDERED: ACETAMINOPHEN 325 MG TAB PO PRN (15:45)
[2016-08-13] MEDS ORDERED: SODIUM CHLORIDE 0.9% FLUSH 10 ML FLUSH IV FLUSH PRN (15:45)
[2016-08-13] MEDS ORDERED: ONDANSETRON HCL 4 MG/2 ML VIAL IVP PRN (16:00)
[2016-08-13] MEDS ORDERED: ZOLPIDEM TARTRATE 5 MG TAB PO PRN (16:00)
[2016-08-13] MEDS ORDERED: cloNIDine HCL 0.1 MG TAB PO PRN (16:00)
[2016-08-13] MEDS ORDERED: ALBUTEROL SULFATE 90 MCG/ACT HFA 8 GM INHALER INH PRN (16:00)
[2016-08-13] MEDS ORDERED: LORazepam 0.5 MG TAB PO PRN (16:00)
[2016-08-13] MEDS ORDERED: hydrALAZINE HCL 20 MG/ML VIAL IV PUSH PRN (16:00)
[2016-08-13] MEDS ORDERED: PROCHLORPERAZINE 25 MG SUPP RECTAL PRN (16:00)
[2016-08-13 17:25] VITALS: BP 155/74; PULSE 75; RESP 18; O2SAT 96
--- NOTE | 2016-08-13 17:51 | PD.CONS ---
HPI Service General surgery Consult Requested By Dr. Flaherty Reason for Consult Cirrhosis, umbilical hernia with ascitic leak Primary Care Physician Steven Navarro MD History of Present Illness This is a 61-year-old female with multiple medical problems mostly autoimmune also with liver cirrhosis. She reports that up until yesterday she had a very large distended abdomen and then began to have a copious amount of clear liquid fluid draining from a wound at her umbilicus. She denies abdominal pain nausea vomiting. She has never had a paracentesis. She is currently on Lasix and Aldactone. She is unsure what the etiology of her cirrhosis is. No previous abdominal surgical history. Based on her lab looks like she is a child class B cirrhotic. She is extremely thin but states that she is currently hungry. Review of Systems Constitutional: DENIES: Fever, Chills Eyes: DENIES: Eye inflammation, Eye pain Respiratory: DENIES: Cough, Wheezing Cardiovascular: DENIES: Chest pain, Palpitations Gastrointestinal: DENIES: Abdominal pain, Vomiting Integumentary: DENIES: Pruritus, Rash Past Family Social History Past Medical History Mixed connective tissue disease Lower extremity wounds Cirrhosis Past Surgical History Recent vaginal prolapse repair Tonsillectomy Reported Medications Reported Meds & Active Scripts Active Ventolin Hfa 18 GM Inh (Albuterol Sulfate) 90 Mcg/Act Aer 2 Puff INH Q4-6H PRN Oxycodone (Oxycodone HCl) 15 Mg Tab 15 Mg PO BID PRN Spironolactone 25 Mg Tab 25 Mg PO BIDPC Klor-Con 10 (Potassium Chloride) 10 Meq Tab 10 Meq PO DAILY 90 Days four tabs daily for two days then continue one tab daily Reported Levofloxacin 750 Mg Tab 750 Mg PO DAILY Protonix (Pantoprazole Sodium) 20 Mg Tab 20 Mg PO BID Neurontin Liq (Gabapentin) 250 Mg/5 Ml Soln 600 Mg PO TID Furosemide 40 Mg Tab 40 Mg PO DAILY Allergies: Coded Allergies: Vancomycin (Verified Allergy, Severe, HIVES, 08/13/16) Cleocin (Verified Allergy, Intermediate, loose stool and diarrhea, 08/13/16 ) Minipress (Verified Allergy, Mild, ANXIETY, 08/13/16) Sulfa (Verified Allergy, Unknown, UNKNOWN, 08/13/16) Rocephin (Verified Adverse Reaction, Mild, ANXIETY, 08/13/16) *MDRO Multi-Drug Resistant Organism (Verified Adverse Reaction, Unknown, ESBL, MRSA, 08/13/16) MRSA (leg wound) - 10/05/2015, ESBL+Klebsiella Pneumoniae (leg-01/18/16) Active Ordered Medications Current Medications Medications (Trade) Dose Ordered Sig/Jose M Route Start Time Stop Time Status Last Admin (NS Flush) 2 ml UNSCH PRN IV FLUSH 08/13/16 15:45 (NS Flush) 2 ml BID IV FLUSH 08/13/16 21:00 (Tylenol) 650 mg Q4H PRN PO 08/13/16 15:45 (Zofran Inj) 4 mg Q6H PRN IVP 08/13/16 16:00 (Compazine Supp) 25 mg Q12H PRN RECTAL 08/13/16 16:00 (Ambien) 5 mg HS PRN PO 08/13/16 16:00 (Narcan Inj) 0.4 mg UNSCH PRN IV 08/13/16 15:45 (Apresoline Inj) 20 mg Q4H PRN IV PUSH 08/13/16 16:00 (Ativan) 0.5 mg Q8H PRN PO 08/13/16 16:00 Clonidine 0.1 mg 0.1 mg Q6H PRN PO 08/13/16 16:00 (Flagyl 500 Mg Inj) 100 ml @ 100 mls/hr Q8H IV 08/13/16 17:00 Furosemide 40 mg 40 mg BID@09,18 IV PUSH 08/13/16 18:00 (Levaquin 750 Mg Premix Inj) 150 ml @ 100 mls/hr Q24H IV 08/14/16 16:00 (Neurontin Liq) 600 mg TID PO 08/13/16 18:00 (Protonix) 20 mg BID PO 08/13/16 21:00 (Roxicodone) 15 mg BID PRN PO 08/13/16 16:00 Family History Noncontributory Social History No tobacco alcohol or drug use. Physical Exam Vital Signs Vital Signs Date Time Temp Pulse Resp B/P Pulse Ox O2 Delivery O2 Flow Rate FiO2 08/13/16 12:26 98.4 77 15 163/75 98 Physical Exam GENERAL: Awake and alert. No acute distress. Cooperative. Thin, cachectic- appearing HEAD: Normocephalic. Atraumatic. EYES: Pupils equal round and reactive to light bilaterally. . NECK: Trachea midline. CHEST: Lungs clear to auscultation bilaterally with no wheezing or rhonchi. No respiratory distress. CARDIOVASCULAR: Regular rate and rhythm. ABDOMEN: Thin skin with visible veins. Subcentimeter wound in periumbilical skin with drainage of clear fluid when hernia is palpated. The hernia is partially reducible. It is nontender. EXTREMITIES: No cyanosis or edema. Bandages are on both lower extremities and I did not remove them. Extremities are very thin SKIN: Warm, dry, mild jaundice Laboratory Laboratory Tests Test 08/13/16 13:20 White Blood Count 11.3 Red Blood Count 4.48 Hemoglobin 12.8 Hematocrit 40.2 Mean Corpuscular Volume 89.7 Mean Corpuscular Hemoglobin 28.5 Mean Corpuscular Hemoglobin 31.8 Concent Red Cell Distribution Width 19.4 Platelet Count 129 Mean Platelet Volume 7.5 Neutrophils (%) (Auto) 79.7 Lymphocytes (%) (Auto) 9.5 Monocytes (%) (Auto) 6.6 Eosinophils (%) (Auto) 3.8 Basophils (%) (Auto) 0.4 Neutrophils # (Auto) 9.0 Lymphocytes # (Auto) 1.1 Monocytes # (Auto) 0.7 Eosinophils # (Auto) 0.4 Basophils # (Auto) 0.0 CBC Comment AUTO DIFF Differential Comment AUTO DIFF CONFIRMED Platelet Estimate LOW Platelet Morphology Comment NORMAL Ovalocytes 1+ Acanthocytes OCC Keratocytes OCC Prothrombin Time 14.0 Prothromb Time International 1.3 Ratio Activated Partial 29.8 Thromboplast Time Sodium Level 138 Potassium Level 5.7 Chloride Level 105 Carbon Dioxide Level 23.7 Anion Gap 9 Blood Urea Nitrogen 20 Creatinine 1.03 Estimat Glomerular Filtration 55 Rate Random Glucose 111 Calcium Level 7.6 Total Bilirubin 1.6 Aspartate Amino Transf 87 (AST/SGOT) Alanine Aminotransferase 24 (ALT/SGPT) Alkaline Phosphatase 117 Total Protein 5.3 Albumin 1.6 Result Diagram: 08/13/16 1320 08/13/16 1320 Imaging Last Impressions Abdomen/Pelvis CT 08/13/16 0000 Signed Impressions: Service Date/Time: Saturday, August 13, 2016 14:25 - CONCLUSION: 1. Inhomogeneous cirrhotic appearing liver with no focal mass. 2. Moderate splenomegaly with large splenic varices. 3. Diffuse anasarca. 4. Apparent eventration of the right hemidiaphragm with large amount of fluid. Obed Baird MD Assessment and Plan Assessment and Plan 61-year-old female with mixed connective tissue disease with child's class B cirrhosis. She has an ascitic leak through a periumbilical wound associated with an umbilical hernia. I did not recommend operative intervention at this time. I recommend aggressive control of her ascites with medication and paracenteses as needed. She should probably be covered for SBP since she has connection to the skin. I' ll continue to follow along. At some point in the future she may benefit from elective repair of the umbilical hernia; however, she is quite frail with multiple medical conditions and this would have to be discussed further. Jesse Ferris MD Aug 13, 2016 17:51
[2016-08-13] MEDS: GABAPENTIN 250 MG/5 ML UDC PO SCH (18:00)
[2016-08-13] MEDS: metroNIDAZOLE 500 MG INJ 100 ML IV SCH (18:25)
[2016-08-13] MEDS: FUROSEMIDE 40 MG/4 ML VIAL IV PUSH SCH (18:25)
[2016-08-13 19:31] VITALS: BP 86/58; PULSE 107; RESP 20
[2016-08-13] MEDS: SODIUM CHLORIDE 0.9% FLUSH 10 ML FLUSH IV FLUSH SCH (20:14)
[2016-08-13 20:30] VITALS: BP 99/68; PULSE 82; RESP 20
[2016-08-13] MEDS: PANTOPRAZOLE SOD 20 MG DELAYED RELEASE TAB PO SCH (21:00)
[2016-08-13 21:23] VITALS: BP 100/62; PULSE 94; RESP 20
[2016-08-13 23:45] VITALS: BP 97/63; PULSE 92; RESP 17; TEMP 96.4
[2016-08-14] VITALS (8 sets, daily range): BP systolic 78–98; BP diastolic 53–71; PULSE 88–102; RESP 14–20; TEMP 96.7–97.6; O2SAT 93–99
[2016-08-14] MEDS: metroNIDAZOLE 500 MG INJ 100 ML IV SCH ×3 (00:47→17:56)
[2016-08-14] MEDS ORDERED: ALBUTEROL SULFATE 90 MCG/ACT HFA 18 GM INHALER INH PRN (03:10)
[2016-08-14 05:27] LABS: AUTOMATED NEUTROPHIL # 4.1 TH/MM3 (1.8-7.7); BASOPHIL % 0.4 % (0.0-2.0); EOSINOPHIL # 0.3 TH/MM3 (0-0.4); EOSINOPHIL % 5.6 % (0.0-4.0); HEMATOCRIT 32.6 % (35.0-46.0); HEMO FLAGS DIFF FINAL; LYMPH % 13.9 % (9.0-44.0); LYMPHOCYTE # 0.8 TH/MM3 (1.0-4.8); MEAN CELL VOLUME 88.1 FL (80.0-100.0); MEAN CORPUSCULAR HEMOGLOBIN 28.7 PG (27.0-34.0); MEAN CORPUSCULAR HGB CONC 32.6 % (32.0-36.0); MONO % 6.9 % (0.0-8.0); NEUT % 73.2 % (16.0-70.0); PLATELET COUNT 104 TH/MM3 (150-450); RED BLOOD COUNT 3.71 MIL/MM3 (4.00-5.30); RED CELL DISTRIBUTION WIDTH 18.9 % (11.6-17.2); WHITE BLOOD COUNT 5.5 TH/MM3 (4.0-11.0)
[2016-08-14 06:26] LABS: BICARBONATE 29.4 MEQ/L (21.0-32.0)
[2016-08-14 06:41] LABS: CALCIUM-PROTEIN CORRECTED 8.9 MG/DL (8.5-10.1)
[2016-08-14] MEDS: FUROSEMIDE 40 MG/4 ML VIAL IV PUSH SCH ×2 (09:00→17:56)
[2016-08-14] MEDS: GABAPENTIN 250 MG/5 ML UDC PO SCH ×3 (09:06→17:56)
[2016-08-14] MEDS: PANTOPRAZOLE SOD 20 MG DELAYED RELEASE TAB PO SCH ×2 (09:07→20:27)
[2016-08-14] MEDS: SODIUM CHLORIDE 0.9% FLUSH 10 ML FLUSH IV FLUSH SCH ×2 (09:07→20:27)
[2016-08-14] MEDS: SPIRONOLACTONE 25 MG TAB PO SCH ×2 (09:15→17:56)
[2016-08-14] MEDS ORDERED: POTASSIUM CHLORIDE 20 MEQ CONTROLLED RELEASE TAB PO ONE (09:15)
--- NOTE | 2016-08-14 09:22 | MH ---
cc: NORMAN SALAZAR MD DATE OF ADMISSION: 08/13/2016 CHIEF COMPLAINT Abdominal pain and distension. HISTORY OF PRESENT ILLNESS Mona Rubi is a 61-year-old female who had leakage from her umbilical hernia. She states that it was more swollen and ended up leaking and she was at another doctors appointment and ended up coming to [facility]. She was subsequently seen by the emergency room doctor and I was called for admission for possible peritonitis and excessive abdominal ascites leakage. She was given IV antibiotics in the emergency room and the emergency room doctor called Dr. Ferris who has recommended conservative management. The patient states that she is feeling somewhat better, however, there still excessive leakage. She states she is unable to standup due to the pain in her feet and concern with the large ulcers in her legs. She notes generalized pain and some increased back pain as well. LABORATORY DATA WBCs 11.3, now 5.5, hemoglobin 10.6, potassium 5.7, now 3.0, creatinine normal, calcium 7.1, normal corrected, INR 1.3. IMAGING STUDIES Pelvic CT shows cirrhotic liver with no masses. Splenomegaly with splenic varices, anasarca and large amount of fluid. PAST MEDICAL HISTORY 1. Mixed connective tissue disease. 2. Lupus. 3. CREST syndrome. 4. Cirrhosis. 5. Hypertension. 6. Foot ulcers. 7. Pancytopenia. 8. Hypernatremia. 9. Hypokalemia. PAST SURGICAL HISTORY Numerous wound debridements. FAMILY HISTORY She reports it is noncontributory and she has a daughter who is alive and well. She quit smoking. No illicit drug usage or alcohol usage. PHYSICAL EXAMINATION VITAL SIGNS: Temperature 97.0, pulse 89, respirations 16, blood pressure 98/60, pulse ox 93% on room air. GENERAL: She is an alert frail female. She is lying flat. She is not able to sit up due to pain in her abdomen and weakness. HEENT: Oropharynx is clear. Carotids are clear. No JVD. CHEST: Harsh cough and slight congestion at the bases. CARDIOVASCULAR: Regular rate and rhythm. No murmurs, rubs, clicks or gallops. ABDOMEN: Soft, slightly distended. There is excess fluid draining from the umbilical hernia. EXTREMITIES: Extremities are wrapped with Davis wrap with some staining in the dressing. NEURO: A&O x3. No focal deficits. She has generalized 1/5 weakness in all extremities. ASSESSMENT 1. Spontaneous bacterial peritonitis. 2. Lupus. 3. Mixed connective tissue disease. 4. CREST syndrome. 5. Hypernatremia, now with hypokalemia. 6. Cirrhosis. 7. Esophageal varices. 8. Peripheral vascular disease. 9. Venostasis ulcers. 10. Scleroderma. 11. Iron-deficiency anemia. 12. History of MRSA of the right lower extremity. 13. History of sepsis. PLAN 1. IV Levaquin 750 daily. 2. Metronidazole IV 500 mg q.8 hours. 3. Lasix 40 mg IV b.i.d. and will hold for systolic less than 110 as she is now hypotensive. 4. Gabapentin 600 mg t.i.d. 5. Oxycodone 15 mg b.i.d. p.r.n. pain. 6. Protonix 20 mg b.i.d. 7. Physical therapy. 8. General surgery consult for her umbilical hernia. 9. Infectious disease consult for spontaneous bacterial peritonitis. 10. Podiatry consult for her leg wounds. 11. Wound ostomy nurse consult for leg wounds. 12. An a.m. CBC and BMP. 13. Inpatient admission for the above diagnosis and plan. Expect at least 3 days inpatient admission. The patient has become very weakened and is unable to function at home. Will monitor her blood cultures, and monitor on IV antibiotics and await further consultants recommendations. The patient would if discharged home from SBP and dehydration. Norman Salazar MD RP/ELIN /8:38 AM /9:02 AM
--- NOTE | 2016-08-14 10:50 | EKG ---
Date Performed: 08/13/2016 Time Performed: 14:59:22 PTAGE: 61 years EKG: Sinus rhythm SEPTAL MYOCARDIAL INFARCTION ABNORMAL ECG Compared to prior tracing no significant change DOCTOR: Amanda Echavarria Interpretating Date/Time 08/14/2016 10:50:21
--- NOTE | 2016-08-14 12:56 | PD.WOU.CON ---
Patient Intake Chief Complaint Bilateral lower extremity ulcerations Consult Requested by Dr. 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 I have been following her in the wound Center for left dorsal foot wound in her right lateral leg wound. We have been treating her with a antimicrobial collagen and compression. I was asked to evaluate her for treatment here at [place] as an inpatient Coded Allergies: Vancomycin (Verified Allergy, Severe, HIVES, 08/13/16) Cleocin (Verified Allergy, Intermediate, loose stool and diarrhea, 08/13/16 ) Minipress (Verified Allergy, Mild, ANXIETY, 08/13/16) Sulfa (Verified Allergy, Unknown, UNKNOWN, 08/13/16) Rocephin (Verified Adverse Reaction, Mild, ANXIETY, 08/13/16) *MDRO Multi-Drug Resistant Organism (Verified Adverse Reaction, Unknown, ESBL, MRSA, 08/13/16) MRSA (leg wound) - 10/05/2015, ESBL+Klebsiella Pneumoniae (leg-01/18/16) Preferred Language to Discuss: [place] Barriers to Learning: None Teaching Method: Discussion Vital Signs Date Time Temp Pulse Resp B/P Pulse Ox O2 Delivery O2 Flow Rate FiO2 08/14/16 08:00 97.0 91 16 83/53 94 80/54 08/14/16 04:01 97.0 89 16 98/60 93 08/14/16 01:47 18 08/13/16 23:45 96.4 92 17 97/63 08/13/16 21:23 94 20 100/62 08/13/16 20:30 82 20 99/68 08/13/16 19:31 107 20 86/58 08/13/16 17:25 75 18 155/74 96 Room Air Pain scale used: 0-10 numeric scale Pain score: 8 Medications Current Medications Iohexol 80 ml 80 ml STK-MED ONCE IV Last administered on 08/13/16 14:44; Start 08/13/16 at 14:44; Stop 08/13/16 at 14:45; Status DC Levofloxacin/ Dextrose (Levaquin 750 Mg Premix Inj) 150 ml @ 100 mls/hr ONCE ONCE IV Last administered on 08/13/16 15:53; Start 08/13/16 at 15:30; Stop at 16:59; Status DC Sodium Chloride (NS Flush) 2 ml UNSCH PRN IV FLUSH FLUSH AFTER USING IV ACCESS ; Start 08/13/16 at 15:45 Sodium Chloride (NS Flush) 2 ml BID IV FLUSH Last administered on 08/14/16 09: 07; Start 08/13/16 at 21:00 Acetaminophen (Tylenol) 650 mg Q4H PRN PO TEMP > 100.4; Start 08/13/16 at 15:45 Ondansetron HCl (Zofran Inj) 4 mg Q6H PRN IVP NAUSEA OR VOMITING; Start at 16:00 Prochlorperazine (Compazine Supp) 25 mg Q12H PRN RECTAL NAUSEA OR VOMITING; Start 08/13/16 at 16:00 Zolpidem Tartrate (Ambien) 5 mg HS PRN PO INSOMNIA; Start 08/13/16 at 16:00 Naloxone HCl (Narcan Inj) 0.4 mg UNSCH PRN IV SEE LABEL COMMENTS; Start at 15:45 Hydralazine HCl (Apresoline Inj) 20 mg Q4H PRN IV PUSH SYS BP GREATER THAN 180 MMHG; Start 08/13/16 at 16:00 Lorazepam (Ativan) 0.5 mg Q8H PRN PO SEVERE ANXIETY OR AGITATION; Start at 16:00 Clonidine 0.1 mg 0.1 mg Q6H PRN PO SBP>160, DBP>90; Start 08/13/16 at 16:00 Metronidazole (Flagyl 500 Mg Inj) 100 ml @ 100 mls/hr Q8H IV Last administered on 08/14/16 09:07; Start 08/13/16 at 17:00 Furosemide 40 mg 40 mg BID@09,18 IV PUSH Last administered on 08/13/16 18:25; Start 08/13/16 at 18:00 Levofloxacin/ Dextrose (Levaquin 750 Mg Premix Inj) 150 ml @ 100 mls/hr Q24H IV ; Start 08/14/16 at 16:00 Albuterol Sulfate (Proair Hfa Inh) 2 puff 5 TIMES A DAY PRN INH SHORTNESS OF BREATH; Start 08/13/16 at 16:00; Stop 08/14/16 at 03:10; Status DC Gabapentin (Neurontin Liq) 600 mg TID PO Last administered on 08/14/16 09:06; Start 08/13/16 at 18:00 Pantoprazole Sodium (Protonix) 20 mg BID PO Last administered on 08/14/16 09: 07; Start 08/13/16 at 21:00 Oxycodone HCl (Roxicodone) 15 mg BID PRN PO PAIN Last administered on 09:10; Start 08/13/16 at 16:00 Albuterol Sulfate (Ventolin Hfa Inh) 2 puff 5 TIMES A DAY PRN INH SHORTNESS OF BREATH; Start 08/14/16 at 03:10 Spironolactone (Aldactone) 25 mg BID@09,18 PO ; Start 08/14/16 at 09:15 Potassium Chloride (KCl) 40 meq ONCE ONCE PO Last administered on 08/14/16 09 :26; Start 08/14/16 at 09:15; Stop 08/14/16 at 09:19; Status DC Past, Family & Social History Past Medical History Cardiovascular: REPORTS HX OF: Deep venous thrombosis (right leg) Gastrointestinal: REPORTS HX OF: GERD, Liver disease (Cirrhosis of the liver- 5 years), Other GI history (Enlarged Spleen) Genitourinary: REPORTS HX OF: Other history (connective tissue disease) Gynecologic: REPORTS HX OF: 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) Age at menarche: 15 Age at menopause: 51 history: : 6 Live births: 5 Musculoskeletal: REPORTS HX OF: Rheumatoid arthritis Cancer/Hematology: REPORTS HX OF: Anemia, Other cancer/hematology Infectious disease: REPORTS HX OF: Chickenpox, Measles, Mumps Integumentary: REPORTS HX OF: Other integumentary hx (Scleroderma, Raynaud's Disease) Neurologic: REPORTS HX OF: Peripheral neuropathy Psychiatric: REPORTS HX OF: Anxiety, Depression Past Surgical History HEENT: REPORTS HX OF: Tonsillectomy, Other throat surgery (Esophageal Varicies) Gynecologic: DENIES HX OF: Hysterectomy Breast: DENIES HX OF: Mastectomy, bilateral, Mastectomy, left, Mastectomy, right Family Medical History Patient History: Cardiac arrhythmia G8 FATHER Kidney disease G8 FATHER Substance Use Substance use: Denies use Review of Systems Notes Bony change since her visit last week to the wound Center in her 14 point review of systems exam is the draining umbilicus Wound Assessment Vascular Assessment R Dorsails Pedis: Doppler L Dorsails Pedis: Doppler R Posterior Tibial: Doppler L Posterior Tibial: Doppler Temperature of Left Extremity: Cool Temperature of Right Extremity: Cool Extremities Evaluation: Edema Right, Edema Left Wound Information - Wound One Wound Location: Right lateral leg Wound Type: Venous Disease Classification: FT- full thickness Exudate: Moderate Exudate Type: Serosanguineous Debridement: No Fibrin Amount: Moderate Granulation Tissue Color: None Granulation Tissue Texture: N/A Exposed: No exposed bone, muscle, tendon Eschar: No Odor: Yes Periwound Appearance: FINDINGS: Maceration Dressing Notes: Optifoam Gentle AG Wound Two Wound Location: Left dorsal foot- Proximal Wound Type: Venous Disease Classification: FT- full thickness Exudate: Moderate Exudate Type: Green, Yellow Fibrin Amount: Moderate Granulation Tissue Color: [place] Granulation Tissue Texture: Spongy Exposed: No exposed bone, muscle, tendon Eschar: No Odor: Yes Wound Three Wound Location: Left anterior leg Lab and Radiology Results Laboratory Laboratory Tests Test 08/13/16 08/14/16 13:20 04:50 White Blood Count 11.3 TH/MM3 5.5 TH/MM3 Red Blood Count 4.48 MIL/MM3 3.71 MIL/MM3 Hemoglobin 12.8 GM/DL 10.6 GM/DL Hematocrit 40.2 % 32.6 % Mean Corpuscular Volume 89.7 FL 88.1 FL Mean Corpuscular Hemoglobin 28.5 PG 28.7 PG Mean Corpuscular Hemoglobin 31.8 % 32.6 % Concent Red Cell Distribution Width 19.4 % 18.9 % Platelet Count 129 TH/MM3 104 TH/MM3 Mean Platelet Volume 7.5 FL 7.4 FL Neutrophils (%) (Auto) 79.7 % 73.2 % Lymphocytes (%) (Auto) 9.5 % 13.9 % Monocytes (%) (Auto) 6.6 % 6.9 % Eosinophils (%) (Auto) 3.8 % 5.6 % Basophils (%) (Auto) 0.4 % 0.4 % Neutrophils # (Auto) 9.0 TH/MM3 4.1 TH/MM3 Lymphocytes # (Auto) 1.1 TH/MM3 0.8 TH/MM3 Monocytes # (Auto) 0.7 TH/MM3 0.4 TH/MM3 Eosinophils # (Auto) 0.4 TH/MM3 0.3 TH/MM3 Basophils # (Auto) 0.0 TH/MM3 0.0 TH/MM3 CBC Comment AUTO DIFF DIFF FINAL Differential Comment AUTO DIFF CONFIRMED Platelet Estimate LOW Platelet Morphology Comment NORMAL Ovalocytes 1+ Acanthocytes OCC Keratocytes OCC Laboratory Tests Test 08/13/16 08/14/16 13:20 04:50 Sodium Level 138 MEQ/L 143 MEQ/L Potassium Level 5.7 MEQ/L 3.0 MEQ/L Chloride Level 105 MEQ/L 106 MEQ/L Carbon Dioxide Level 23.7 MEQ/L 29.4 MEQ/L Anion Gap 9 MEQ/L 8 MEQ/L Blood Urea Nitrogen 20 MG/DL 16 MG/DL Creatinine 1.03 MG/DL 0.88 MG/DL Estimat Glomerular Filtration 55 ML/MIN 66 ML/MIN Rate Random Glucose 111 MG/DL 119 MG/DL Calcium Level 7.6 MG/DL 7.1 MG/DL Total Bilirubin 1.6 MG/DL Aspartate Amino Transf 87 U/L (AST/SGOT) Alanine Aminotransferase 24 U/L (ALT/SGPT) Alkaline Phosphatase 117 U/L Total Protein 5.3 GM/DL 3.9 GM/DL Albumin 1.6 GM/DL Protein Corrected Calcium 8.9 MG/DL Radiology Last Impressions Abdomen/Pelvis CT 08/13/16 0000 Signed Impressions: Service Date/Time: Saturday, August 13, 2016 14:25 - CONCLUSION: 1. Inhomogeneous cirrhotic appearing liver with no focal mass. 2. Moderate splenomegaly with large splenic varices. 3. Diffuse anasarca. 4. Apparent eventration of the right hemidiaphragm with large amount of fluid. Obed Baird MD Assessment/Plan Problem List: (1) Peripheral vascular disease Status: Chronic (2) Cirrhosis Status: Chronic (3) CREST (calcinosis, Raynaud's phenomenon, esophageal dysfunction, sclerodactyly, telangiectasia) Status: Chronic (4) Peripheral neuropathy Status: Chronic (5) Foot ulcer Status: Chronic (6) Lupus (systemic lupus erythematosus) Status: Chronic (7) Venous stasis ulcer Status: Chronic (8) Venous hypertension, chronic, with ulcer Status: Acute Additional Plans & Procedures PLAN: Ordered Optifoam Gentle AG dressings to bilateral lower extremity wounds. Change every other day. We'll follow during the course of admission and then in the wound center. Problem Qualifiers (1) Cirrhosis: Qualified Code: K74.60 - Cirrhosis of liver with ascites, unspecified hepatic cirrhosis type (2) Peripheral neuropathy: Qualified Code: G62.81 - Polyneuropathy associated with critical illness (3) Foot ulcer: Qualified Code: L97.522 - Foot ulcer, left, with fat layer exposed (4) Lupus (systemic lupus erythematosus): Qualified Code: M32.9 - Systemic lupus erythematosus, unspecified SLE type, unspecified organ involvement status (5) Venous hypertension, chronic, with ulcer: Qualified Code: I87.312 - Venous hypertension, chronic, with ulcer, left Floyd Rankin DPM Aug 14, 2016 12:56
--- NOTE | 2016-08-14 13:00 | HHI.PR ---
Subjective Subjective Notes She is about the same and with persistent leakage from umbilicus. Objective Vitals/I&O Vital Signs Date Time Temp Pulse Resp B/P Pulse Ox O2 Delivery O2 Flow Rate FiO2 08/14/16 08:00 97.0 91 16 83/53 94 80/54 08/13/16 17:25 Room Air Labs Laboratory Tests Test 08/13/16 08/14/16 13:20 04:50 White Blood Count 11.3 5.5 Red Blood Count 4.48 3.71 Hemoglobin 12.8 10.6 Hematocrit 40.2 32.6 Mean Corpuscular Volume 89.7 88.1 Mean Corpuscular Hemoglobin 28.5 28.7 Mean Corpuscular Hemoglobin 31.8 32.6 Concent Red Cell Distribution Width 19.4 18.9 Platelet Count 129 104 Mean Platelet Volume 7.5 7.4 Neutrophils (%) (Auto) 79.7 73.2 Lymphocytes (%) (Auto) 9.5 13.9 Monocytes (%) (Auto) 6.6 6.9 Eosinophils (%) (Auto) 3.8 5.6 Basophils (%) (Auto) 0.4 0.4 Neutrophils # (Auto) 9.0 4.1 Lymphocytes # (Auto) 1.1 0.8 Monocytes # (Auto) 0.7 0.4 Eosinophils # (Auto) 0.4 0.3 Basophils # (Auto) 0.0 0.0 CBC Comment AUTO DIFF DIFF FINAL Differential Comment AUTO DIFF CONFIRMED Platelet Estimate LOW Platelet Morphology Comment NORMAL Ovalocytes 1+ Acanthocytes OCC Keratocytes OCC Prothrombin Time 14.0 Prothromb Time International 1.3 Ratio Activated Partial 29.8 Thromboplast Time Sodium Level 138 143 Potassium Level 5.7 3.0 Chloride Level 105 106 Carbon Dioxide Level 23.7 29.4 Anion Gap 9 8 Blood Urea Nitrogen 20 16 Creatinine 1.03 0.88 Estimat Glomerular Filtration 55 66 Rate Random Glucose 111 119 Calcium Level 7.6 7.1 Total Bilirubin 1.6 Aspartate Amino Transf 87 (AST/SGOT) Alanine Aminotransferase 24 (ALT/SGPT) Alkaline Phosphatase 117 Total Protein 5.3 3.9 Albumin 1.6 Protein Corrected Calcium 8.9 Radiology Last Impressions Abdomen/Pelvis CT 08/13/16 0000 Signed Impressions: Service Date/Time: Saturday, August 13, 2016 14:25 - CONCLUSION: 1. Inhomogeneous cirrhotic appearing liver with no focal mass. 2. Moderate splenomegaly with large splenic varices. 3. Diffuse anasarca. 4. Apparent eventration of the right hemidiaphragm with large amount of fluid. Obed Baird MD Narrative Exam NAD Thin, frail, sitting up in chair Alert Abd soft, nontender, leakage of clear fluid from umbilicus and partially reducible umbilical hernia present A/P Assessment and Plan 61 yo F with cirrhosis who has ascitic leak from skin overlying umbilical hernia. Continue aggressive medical management of ascites and nonoperative treatment for the drainage. I will ask wound care to place wound automotive service manager bag on umbilicus to keep the patient clean, and also output can be measured. Jesse Ferris MD Aug 14, 2016 13:00
--- NOTE | 2016-08-14 14:18 | PD.CONS ---
History of Present Illness Service Infectious disease Consult Requested By Dr. Navarro Reason for Consult Evaluate patient with ascites, please cover for SBP Primary Care Physician Steven Naavrro MD Diagnoses: History of Present Illness Patient seen and examined. Records reviewed. Patient is a 61-year-old female, with complicated medical history, presented to the hospital for evaluation of leaking fluid from her and the like this. Patient is known to have a large umbilical hernia, and she has history of cirrhosis and ascites. Her hernia had been very swollen, and it started leaking fluid. She was brought into the hospital for further evaluation and treatment. She denies any abdominal pain. She denies any fever or chills or sweats. Patient has had a cough for the last several days, very weak, but sounds wet, and she is not able to bring up any phlegm. Patient also has chronic wounds in both lower extremity, and goes to the wound care center to have that checked. The last time it was cultured was back in June and it had Pseudomonas, MSSA, and Burkholderia. CT of the abdomen and pelvis did show some ascites. Her initial WBC was 11 and it's down to 5. She has been afebrile. She is currently on Levaquin and Flagyl. Infectious disease consultation has been requested to give recommendation, prophylactic antibiotics. Review of Systems Constitutional: COMPLAINS OF: Fatigue, DENIES: Fever, Chills Eyes: DENIES: Eye pain Ears, nose, mouth, throat: DENIES: Nasal discharge, Oral lesions, Throat pain, Ear Pain, Sinus Pain Respiratory: COMPLAINS OF: Cough, DENIES: Sputum production, Shortness of breath Cardiovascular: DENIES: Chest pain, Palpitations, Syncope Gastrointestinal: DENIES: Abdominal pain, Diarrhea, Nausea, Vomiting, Difficulty Swallowing Genitourinary: DENIES: Urgency, Dysuria Musculoskeletal: DENIES: Muscle aches Integumentary: DENIES: Rash Neurologic: DENIES: Headache Psychiatric: DENIES: Hallucinations Past Family Social History Allergies: Coded Allergies: Vancomycin (Verified Allergy, Severe, HIVES, 08/13/16) Cleocin (Verified Allergy, Intermediate, loose stool and diarrhea, 08/13/16 ) Minipress (Verified Allergy, Mild, ANXIETY, 08/13/16) Sulfa (Verified Allergy, Unknown, UNKNOWN, 08/13/16) Rocephin (Verified Adverse Reaction, Mild, ANXIETY, 08/13/16) *MDRO Multi-Drug Resistant Organism (Verified Adverse Reaction, Unknown, ESBL, MRSA, 08/15/16) MRSA (leg wound) - 10/05/2015, ESBL+Klebsiella Pneumoniae (leg-01/18/16) MRSA PCR Screen #1 NEGATIVE - 08/15/16 Past Medical History Pancytopenia Scleroderma, lupus CREST syndrome Cirrhosis, , esophageal varices Chronic venous stasis ulcer Peripheral neuropathy Splenomegaly Peripheral vascular disease Hypertension Vasculitis Past Surgical History None Active Ordered Medications Tylenol Albuterol Clonidine Lasix Neurontin Hydralazine Levaquin Ativan Flagyl Narcan Zofran Oxycodone Protonix Compazine Aldactone Ambien Social History Smokes about a pack day of cigarettes Denies alcohol abuse Denies illicit drug use Physical Exam Vital Signs Vital Signs Date Time Temp Pulse Resp B/P Pulse Ox O2 Delivery O2 Flow Rate FiO2 08/14/16 12:00 96.7 88 14 80/54 08/14/16 10:10 16 08/14/16 08:00 97.0 91 16 83/53 94 80/54 08/14/16 04:01 97.0 89 16 98/60 93 08/13/16 23:45 96.4 92 17 97/63 08/13/16 21:23 94 20 100/62 08/13/16 20:30 82 20 99/68 08/13/16 19:31 107 20 86/58 08/13/16 17:25 75 18 155/74 96 Room Air Physical Exam GENERAL: This is a cachectic female, looks chronically ill appearing, in no apparent distress. Has a very weak and moist cough SKIN: Cool and dry. No genralized rash. Has some spider nevi face and upper chest. No ecchymoses. Has poor turgor HEAD: Atraumatic. Normocephalic. No temporal or scalp tenderness. EYES: Capitola conjunctivae. Pupils equal round and reactive. Extraocular motions intact. No scleral icterus. No injection or drainage. ENT: Nose without bleeding, or purulent drainage. Moist oral mucosa. Throat without erythema, or exudate. Uvula midline. Airway patent. NECK: Trachea midline. No JVD or lymphadenopathy. Supple, nontender, no meningeal signs. CARDIOVASCULAR: Regular rate and rhythm without murmurs, gallops, or rubs. RESPIRATORY: Clear to auscultation. Breath sounds equal bilaterally. No wheezes , rales, or rhonchi. Decreased at the bases. GASTROINTESTINAL: Abdomen mildly distended, with a colostomy bag over the umbilicus, that is putting clear yellow peritoneal fluid. Bowel sounds are present and normoactive. There is no tenderness, no guarding, no rebound MUSCULOSKELETAL: Extremities without clubbing, or cyanosis. Has BLE pitting edema. Has chronic tree bark appearance of skin in both legs. R leg thare is a superficial ulcer laterally, with red base, and no surrounding erythema. Her L foot, is swollen and has ulcer on dorsum of that foot with green base, and surrounding cellulitis, no odor. No calf tenderness. Negative Homans sign bilaterally. NEUROLOGICAL: Awake and alert. Cranial nerves II through XII intact. Five out of 5 muscle strength in all muscle groups. Normal speech. PSYCH: Flat affect, calm and cooperative LINE: PIV with no evidence of infection Laboratory Laboratory Tests Test 08/14/16 04:50 White Blood Count 5.5 Red Blood Count 3.71 Hemoglobin 10.6 Hematocrit 32.6 Mean Corpuscular Volume 88.1 Mean Corpuscular Hemoglobin 28.7 Mean Corpuscular Hemoglobin 32.6 Concent Red Cell Distribution Width 18.9 Platelet Count 104 Mean Platelet Volume 7.4 Neutrophils (%) (Auto) 73.2 Lymphocytes (%) (Auto) 13.9 Monocytes (%) (Auto) 6.9 Eosinophils (%) (Auto) 5.6 Basophils (%) (Auto) 0.4 Neutrophils # (Auto) 4.1 Lymphocytes # (Auto) 0.8 Monocytes # (Auto) 0.4 Eosinophils # (Auto) 0.3 Basophils # (Auto) 0.0 CBC Comment DIFF FINAL Differential Comment Sodium Level 143 Potassium Level 3.0 Chloride Level 106 Carbon Dioxide Level 29.4 Anion Gap 8 Blood Urea Nitrogen 16 Creatinine 0.88 Estimat Glomerular Filtration 66 Rate Random Glucose 119 Calcium Level 7.1 Protein Corrected Calcium 8.9 Total Protein 3.9 Date/Time Procedure Status Source Growth 08/14/16 13:51 Aerobic Blood Culture Received Blood Peripheral Pending 08/14/16 13:51 Anaerobic Blood Culture Received Blood Peripheral Pending Result Diagram: 08/14/16 0450 08/14/16 0450 Imaging RADIOLOGY STUDIES/FILMS REVIEWED Abdomen/Pelvis CT 08/13/16 0000 Signed Impressions: Service Date/Time: Saturday, August 13, 2016 14:25 - CONCLUSION: 1. Inhomogeneous cirrhotic appearing liver with no focal mass. 2. Moderate splenomegaly with large splenic varices. 3. Diffuse anasarca. 4. Apparent eventration of the right hemidiaphragm with large amount of fluid. Obed Baird MD Assessment and Plan Assessment and Plan IMPRESSION Cirrhosis with ascites, draining at umbilicus where she has a large UH - no evidence of SBP but at risk for developing peritonitis due to open wound [place] lower extremity ulcers, stasis ulcers, with cellulitis L foot Cough, ?pneumonia CREST syndrome Cachexia RECOMMENDATION CXR to evaluate cough Add GPC coverage for cellulitis - will use Cubicin (allergic to Vanco and Cleocin) Continue Levaquin Also on Flagyl Monitor progress Wound care per podiatry I will follow along with you Thank you for this consultation Discussed Condition With Explained plan to the patient Jaylyn Hair MD Aug 14, 2016 14:18
--- NOTE | 2016-08-14 15:09 | RADRPT ---
EXAM DATE/TIME: 08/14/2016 14:41 [facility] COMPARISON: CHEST SINGLE AP, April 18, 2016, 23:49. CHEST PA & LAT, April 22, 2016, 14:23. CHEST SINGLE AP , June 19, 2016, 19:33. INDICATIONS : Patient has had cough since this morning. MEDICAL HISTORY : Gastroesophageal reflux disease. Peripheral vascular disease. Cirrhosis. SURGICAL HISTORY : Tonsillectomy. Esophageal varices surgery. ENCOUNTER: Subsequent ACUITY: 3 days PAIN SCORE: 0/10 LOCATION: Bilateral Chest. FINDINGS: A single view of the chest demonstrates the lungs to be symmetrically aerated without evidence of mas s, infiltrate or effusion. There is mild apparent scarring at the right lung base. The patient is mil dly rotated to the left. The cardiomediastinal contours are unremarkable. Osseous structures are int act. CONCLUSION: No acute disease. There is no evidence of pneumonia. Obed Baird MD on August 14, 2016 at 15:04 Board Certified Radiologist. This report was verified electronically.
[2016-08-14] MEDS ORDERED: LEVOFLOXACIN 750 MG PREMIX INJ 150 ML IV SCH ×2 (16:00→17:00)
[2016-08-14] MEDS: DAPTOmycin INJ 250 MG in SODIUM CHLORIDE 0.9% INJ 100 ML IV SCH (17:01)
[2016-08-14] MEDS: LEVOFLOXACIN 750 MG PREMIX INJ 150 ML IV SCH (17:58)
[2016-08-15] VITALS (7 sets, daily range): BP systolic 80–101; BP diastolic 24–64; PULSE 93–112; RESP 16–20; TEMP 97.3–100.2; O2SAT 93–98
[2016-08-15] MEDS: metroNIDAZOLE 500 MG INJ 100 ML IV SCH ×2 (02:27→08:55)
[2016-08-15 04:36] LABS: AUTOMATED NEUTROPHIL # 7.9 TH/MM3 (1.8-7.7); BASOPHIL % 0.5 % (0.0-2.0); EOSINOPHIL # 0.4 TH/MM3 (0-0.4); HEMATOCRIT 33.3 % (35.0-46.0); HEMO FLAGS DIFF FINAL; LYMPH % 7.3 % (9.0-44.0); LYMPHOCYTE # 0.7 TH/MM3 (1.0-4.8); MEAN CELL VOLUME 86.2 FL (80.0-100.0); MEAN CORPUSCULAR HEMOGLOBIN 29.5 PG (27.0-34.0); MEAN CORPUSCULAR HGB CONC 34.3 % (32.0-36.0); MONO % 7.3 % (0.0-8.0); NEUT % 80.9 % (16.0-70.0); PLATELET COUNT 132 TH/MM3 (150-450); RED BLOOD COUNT 3.86 MIL/MM3 (4.00-5.30); WHITE BLOOD COUNT 9.7 TH/MM3 (4.0-11.0)
[2016-08-15 05:02] LABS: BICARBONATE 26.3 MEQ/L (21.0-32.0); POTASSIUM 3.3 MEQ/L (3.5-5.1)
[2016-08-15 05:17] LABS: CALCIUM-PROTEIN CORRECTED 8.7 MG/DL (8.5-10.1)
[2016-08-15] MEDS: FUROSEMIDE 40 MG/4 ML VIAL IV PUSH SCH (08:56)
[2016-08-15] MEDS: SPIRONOLACTONE 25 MG TAB PO SCH (08:56)
[2016-08-15] MEDS: SODIUM CHLORIDE 0.9% FLUSH 10 ML FLUSH IV FLUSH SCH ×2 (08:56→21:00)
[2016-08-15] MEDS: PANTOPRAZOLE SOD 20 MG DELAYED RELEASE TAB PO SCH ×2 (08:56→21:05)
[2016-08-15] MEDS: GABAPENTIN 250 MG/5 ML UDC PO SCH ×3 (08:57→17:54)
--- NOTE | 2016-08-15 12:22 | HHI.PR ---
Subjective Subjective Notes She feels tired but otherwise ok. Urostomy bag in place for ascitic drainage. Objective Vitals/I&O Vital Signs Date Time Temp Pulse Resp B/P Pulse Ox O2 Delivery O2 Flow Rate FiO2 08/15/16 12:00 97.6 108 16 84/54 98 88/58 08/14/16 11:17 21 08/13/16 17:25 Room Air Labs Laboratory Tests Test 08/15/16 04:03 White Blood Count 9.7 Red Blood Count 3.86 Hemoglobin 11.4 Hematocrit 33.3 Mean Corpuscular Volume 86.2 Mean Corpuscular Hemoglobin 29.5 Mean Corpuscular Hemoglobin 34.3 Concent Red Cell Distribution Width 19.0 Platelet Count 132 Mean Platelet Volume 7.6 Neutrophils (%) (Auto) 80.9 Lymphocytes (%) (Auto) 7.3 Monocytes (%) (Auto) 7.3 Eosinophils (%) (Auto) 4.0 Basophils (%) (Auto) 0.5 Neutrophils # (Auto) 7.9 Lymphocytes # (Auto) 0.7 Monocytes # (Auto) 0.7 Eosinophils # (Auto) 0.4 Basophils # (Auto) 0.0 CBC Comment DIFF FINAL Differential Comment Sodium Level 141 Potassium Level 3.3 Chloride Level 105 Carbon Dioxide Level 26.3 Anion Gap 10 Blood Urea Nitrogen 17 Creatinine 0.98 Estimat Glomerular Filtration 58 Rate Random Glucose 110 Calcium Level 7.0 Protein Corrected Calcium 8.7 Total Protein 4.1 Date/Time Procedure Status Source Growth 08/14/16 13:51 Aerobic Blood Culture - Preliminary Resulted Blood Peripheral NO GROWTH IN 1 DAY 08/14/16 13:51 Anaerobic Blood Culture - Preliminary Resulted Blood Peripheral NO GROWTH IN 1 DAY Radiology Last Impressions Abdomen/Pelvis CT 08/13/16 0000 Signed Impressions: Service Date/Time: Saturday, August 13, 2016 14:25 - CONCLUSION: 1. Inhomogeneous cirrhotic appearing liver with no focal mass. 2. Moderate splenomegaly with large splenic varices. 3. Diffuse anasarca. 4. Apparent eventration of the right hemidiaphragm with large amount of fluid. Obed Baird MD Narrative Exam NAD Thin, frail Abd soft, nontender, leakage of clear fluid from umbilicus and partially reducible umbilical hernia present; urostomy with 1400cc clear output since placement A/P Assessment and Plan 61 yo F with cirrhosis who has ascitic leak from skin overlying umbilical hernia. Continue urostomy to control output. Will ask road service locksmith to see her as she is quite cachectic. Antitiotics per ID. D/w Dr. Hair. Barrington,Jesse FOX Aug 15, 2016 12:22
--- NOTE | 2016-08-15 12:55 | HHI.IDPN ---
Subjective Subjective Remarks Notes reviewed No fever Weak cough CXR clear Has a lot of output from her umbilical opening Antibiotics Vanco Levaquin Flagyl Lines PIV Past Medical History Pancytopenia Scleroderma, lupus CREST syndrome Cirrhosis, , esophageal varices Chronic venous stasis ulcer Peripheral neuropathy Splenomegaly Peripheral vascular disease Hypertension Vasculitis Allergies: Coded Allergies: Vancomycin (Verified Allergy, Severe, HIVES, 08/13/16) Cleocin (Verified Allergy, Intermediate, loose stool and diarrhea, 08/13/16 ) Minipress (Verified Allergy, Mild, ANXIETY, 08/13/16) Sulfa (Verified Allergy, Unknown, UNKNOWN, 08/13/16) Rocephin (Verified Adverse Reaction, Mild, ANXIETY, 08/13/16) *MDRO Multi-Drug Resistant Organism (Verified Adverse Reaction, Unknown, ESBL, MRSA, 08/13/16) MRSA (leg wound) - 10/05/2015, ESBL+Klebsiella Pneumoniae (leg-01/18/16) Objective . Vital Signs Date Time Temp Pulse Resp B/P Pulse Ox O2 Delivery O2 Flow Rate FiO2 08/15/16 12:00 97.6 108 16 84/54 98 88/58 08/15/16 08:00 98.3 102 16 80/58 93 88/52 08/15/16 04:00 100.2 112 20 98/54 94 08/15/16 00:00 98.2 93 20 101/64 96 08/14/16 21:28 18 08/14/16 20:00 97.6 98 20 94/71 94 08/14/16 17:55 102 95/69 08/14/16 16:46 93/67 08/14/16 16:00 96.7 96 15 78/56 99 08/14/16 08/14/16 08/15/16 15:00 23:00 07:00 Intake Total 420 ml 640 ml Output Total 850 ml 700 ml 575 ml Balance -430 ml -60 ml -575 ml Intake Oral 420 ml 640 ml Output Urine Total 700 ml Drainage Total 850 ml 575 ml # Voids 1 # Bowel Movements 0 0 . Laboratory Tests Test 08/13/16 08/14/16 08/15/16 13:20 04:50 04:03 White Blood Count 11.3 TH/MM3 5.5 TH/MM3 9.7 TH/MM3 Red Blood Count 4.48 MIL/MM3 3.71 MIL/MM3 3.86 MIL/MM3 Hemoglobin 12.8 GM/DL 10.6 GM/DL 11.4 GM/DL Hematocrit 40.2 % 32.6 % 33.3 % Mean Corpuscular Volume 89.7 FL 88.1 FL 86.2 FL Mean Corpuscular Hemoglobin 28.5 PG 28.7 PG 29.5 PG Mean Corpuscular Hemoglobin 31.8 % 32.6 % 34.3 % Concent Red Cell Distribution Width 19.4 % 18.9 % 19.0 % Platelet Count 129 TH/MM3 104 TH/MM3 132 TH/MM3 Mean Platelet Volume 7.5 FL 7.4 FL 7.6 FL Neutrophils (%) (Auto) 79.7 % 73.2 % 80.9 % Lymphocytes (%) (Auto) 9.5 % 13.9 % 7.3 % Monocytes (%) (Auto) 6.6 % 6.9 % 7.3 % Eosinophils (%) (Auto) 3.8 % 5.6 % 4.0 % Basophils (%) (Auto) 0.4 % 0.4 % 0.5 % Neutrophils # (Auto) 9.0 TH/MM3 4.1 TH/MM3 7.9 TH/MM3 Lymphocytes # (Auto) 1.1 TH/MM3 0.8 TH/MM3 0.7 TH/MM3 Monocytes # (Auto) 0.7 TH/MM3 0.4 TH/MM3 0.7 TH/MM3 Eosinophils # (Auto) 0.4 TH/MM3 0.3 TH/MM3 0.4 TH/MM3 Basophils # (Auto) 0.0 TH/MM3 0.0 TH/MM3 0.0 TH/MM3 CBC Comment AUTO DIFF DIFF FINAL DIFF FINAL Differential Comment AUTO DIFF CONFIRMED Platelet Estimate LOW Platelet Morphology Comment NORMAL Ovalocytes 1+ Acanthocytes OCC Keratocytes OCC Laboratory Tests Test 08/13/16 08/14/16 08/15/16 13:20 04:50 04:03 Sodium Level 138 MEQ/L 143 MEQ/L 141 MEQ/L Potassium Level 5.7 MEQ/L 3.0 MEQ/L 3.3 MEQ/L Chloride Level 105 MEQ/L 106 MEQ/L 105 MEQ/L Carbon Dioxide Level 23.7 MEQ/L 29.4 MEQ/L 26.3 MEQ/L Anion Gap 9 MEQ/L 8 MEQ/L 10 MEQ/L Blood Urea Nitrogen 20 MG/DL 16 MG/DL 17 MG/DL Creatinine 1.03 MG/DL 0.88 MG/DL 0.98 MG/DL Estimat Glomerular Filtration 55 ML/MIN 66 ML/MIN 58 ML/MIN Rate Random Glucose 111 MG/DL 119 MG/DL 110 MG/DL Calcium Level 7.6 MG/DL 7.1 MG/DL 7.0 MG/DL Total Bilirubin 1.6 MG/DL Aspartate Amino Transf 87 U/L (AST/SGOT) Alanine Aminotransferase 24 U/L (ALT/SGPT) Alkaline Phosphatase 117 U/L Total Protein 5.3 GM/DL 3.9 GM/DL 4.1 GM/DL Albumin 1.6 GM/DL Protein Corrected Calcium 8.9 MG/DL 8.7 MG/DL Microbiology Date/Time Procedure Status Source Growth 08/14/16 13:40 Aerobic Blood Culture - Preliminary Resulted Blood Peripheral NO GROWTH IN 1 DAY 08/14/16 13:40 Anaerobic Blood Culture - Preliminary Resulted Blood Peripheral NO GROWTH IN 1 DAY 08/14/16 13:51 Aerobic Blood Culture - Preliminary Resulted Blood Peripheral NO GROWTH IN 1 DAY 08/14/16 13:51 Anaerobic Blood Culture - Preliminary Resulted Blood Peripheral NO GROWTH IN 1 DAY Imaging Chest X-Ray 08/14/16 0000 Signed Impressions: Service Date/Time: Sunday, August 14, 2016 14:41 - CONCLUSION: No acute disease. There is no evidence of pneumonia. Obed Baird MD Abdomen/Pelvis CT 08/13/16 0000 Signed Impressions: Service Date/Time: Saturday, August 13, 2016 14:25 - CONCLUSION: 1. Inhomogeneous cirrhotic appearing liver with no focal mass. 2. Moderate splenomegaly with large splenic varices. 3. Diffuse anasarca. 4. Apparent eventration of the right hemidiaphragm with large amount of fluid. Obed Baird MD Physical Exam GENERAL: Awake and alert, cachectic, looks chronically ill appearing, has a very weak and moist cough SKIN: Cool and dry. No generalized rash. Has some spider nevi face and upper chest. No ecchymoses. Has poor turgor HEENT: [place] conjunctivae. No scleral icterus. No injection or drainage. Moist oral mucosa. NECK: Trachea midline. No JVD or lymphadenopathy. Supple, nontender, no meningeal signs. CARDIOVASCULAR: Regular rate and rhythm without murmurs, gallops, or rubs. RESPIRATORY: Clear to auscultation. Breath sounds equal bilaterally. No wheezes , rales, or rhonchi. Decreased at the bases. GASTROINTESTINAL: Abdomen mildly distended, with a urostomy bag over the umbilicus, that is putting clear yellow peritoneal fluid. Bowel sounds are present and normoactive. There is no tenderness, no guarding, no rebound MUSCULOSKELETAL: Extremities without clubbing, or cyanosis. Has BLE pitting edema. Has chronic tree bark appearance of skin in both legs. R leg there is a superficial ulcer laterally, with red base, and no surrounding erythema. Her L foot, is swollen and has ulcer on dorsum of that foot with green base, and surrounding cellulitis, no odor. No calf tenderness. NEUROLOGICAL: Grossly non-focal PSYCH: Flat affect, calm and cooperative LINE: PIV with no evidence of infection Assessment & Plan Remarks IMPRESSION Cirrhosis with ascites, draining at umbilicus where she has a large UH - no evidence of SBP but at risk for developing peritonitis due to open wound Lenard lower extremity ulcers, stasis ulcers, with cellulitis L foot Cough, ?pneumonia - CXR clear CREST syndrome Cachexia RECOMMENDATION Continue Cubicin for cellulitis foot with wound - allergic to Vanco and Cleocin Continue Levaquin Stop Flagyl Monitor progress Wound care per podiatry D/W Dr Ferris () Jaylyn Hair MD Aug 15, 2016 12:55
--- NOTE | 2016-08-15 13:47 | HHI.FPPN ---
Subjective Remarks c/o weakness c/o dehydration c/o abdom pain c/o leg ulcer pain d/w RN Objective Vitals Vital Signs Date Time Temp Pulse Resp B/P Pulse Ox O2 Delivery O2 Flow Rate FiO2 08/15/16 12:00 97.6 108 16 84/54 98 88/58 08/15/16 08:00 98.3 102 16 80/58 93 88/52 08/15/16 04:00 100.2 112 20 98/54 94 08/15/16 00:00 98.2 93 20 101/64 96 08/14/16 21:28 18 08/14/16 20:00 97.6 98 20 94/71 94 08/14/16 17:55 102 95/69 08/14/16 16:46 93/67 08/14/16 16:00 96.7 96 15 78/56 99 I/O 08/14/16 08/14/16 08/14/16 08/15/16 08/15/16 08/15/16 07:00 15:00 23:00 07:00 15:00 23:00 Intake Total 180 ml 420 ml 640 ml Output Total 850 ml 700 ml 575 ml Balance 180 ml -430 ml -60 ml -575 ml Intake Oral 180 ml 420 ml 640 ml Output Urine Total 700 ml Drainage Total 850 ml 575 ml # Voids 1 1 # Bowel Movements 0 0 Result Diagram: 08/15/1640208/15/16402 Objective Remarks GENERAL: SKIN: Warm and dry. large ulcers b legs HEAD: Atraumatic. Normocephalic. EYES: Pupils equal and round. No scleral icterus. No injection or drainage. ENT: No nasal bleeding or discharge. Mucous membranes pink and moist. NECK: Trachea midline. No JVD. CARDIOVASCULAR: Regular rate and rhythm. RESPIRATORY: No accessory muscle use. Clear to auscultation. Breath sounds equal bilaterally. GASTROINTESTINAL: Abdomen soft, non-tender, nondistended. Hepatic and splenic margins not palpable. MUSCULOSKELETAL: Extremities without clubbing, cyanosis, or edema. No obvious deformities. NEUROLOGICAL: Awake and alert. No obvious cranial nerve deficits. Motor grossly within normal limits. 2 out of 5 muscle strength in the arms and legs. Normal speech. PSYCHIATRIC: Appropriate mood and affect; insight and judgment normal. Medications and IVs Current Medications Medications (Trade) Dose Ordered Sig/Jose M Route Start Time Stop Time Status Last Admin (NS Flush) 2 ml UNSCH PRN IV FLUSH 08/13/16 15:45 (NS Flush) 2 ml BID IV FLUSH 08/13/16 21:00 08/15/16 08:56 (Tylenol) 650 mg Q4H PRN PO 08/13/16 15:45 (Zofran Inj) 4 mg Q6H PRN IVP 08/13/16 16:00 (Compazine Supp) 25 mg Q12H PRN RECTAL 08/13/16 16:00 (Ambien) 5 mg HS PRN PO 08/13/16 16:00 (Narcan Inj) 0.4 mg UNSCH PRN IV 08/13/16 15:45 (Apresoline Inj) 20 mg Q4H PRN IV PUSH 08/13/16 16:00 (Ativan) 0.5 mg Q8H PRN PO 08/13/16 16:00 (Catapres) 0.1 mg Q6H PRN PO 08/13/16 16:00 (Lasix Inj) 40 mg BID@ IV PUSH 08/13/16 18:00 08/13/16 18:25 (Neurontin Liq) 600 mg TID PO 08/13/16 18:00 08/15/16 13:19 (Protonix) 20 mg BID PO 08/13/16 21:00 08/15/16 08:56 (Roxicodone) 15 mg BID PRN PO 08/13/16 16:00 08/14/16 20:28 Spironolactone 25 mg 25 mg BID@ PO 08/14/16 09:15 Daptomycin 250 mg/ Sodium Chloride 100 ml @ 200 mls/hr Q24H IV 08/14/16 16:00 08/14/16 17:01 (Levaquin 750 Mg Premix Inj) 150 ml @ 100 mls/hr Q24H IV 08/14/16 18:00 08/14/16 17:58 A/P Assessment and Plan 1. Cirrhosis with ascites, risk of developing Spontaneous bacterial peritonitis. 2. Lupus. 3. Mixed connective tissue disease. 4. CREST syndrome. 5. Hypernatremia 6. Hypokalemia 7. Esophageal varices. 8. Peripheral vascular disease. 9. Venostasis ulcers. 10. Scleroderma. 11. Iron-deficiency anemia. 12. History of MRSA of the right lower extremity. 13. History of sepsis. PLAN- 1. IV Levaquin 750 daily and cubicin 2. Metronidazole IV 500 mg q.8 hours. 3. hold diuretics for now 4. Gabapentin 600 mg t.i.d. 5. Oxycodone 15 mg b.i.d. p.r.n. pain. 6. Protonix 20 mg b.i.d. 7. Physical therapy. 8. General surgery consult for her umbilical hernia. 9. Infectious disease consult for spontaneous bacterial peritonitis. 10. Podiatry consult for her leg wounds. 11. Wound ostomy nurse consult for leg wounds. 12. am labs 13. replace lytes, see orders please. Steven Navarro MD Aug 15, 2016 13:47
[2016-08-15] MEDS ORDERED: POTASSIUM CHLORIDE 20 MEQ CONTROLLED RELEASE TAB PO ONE (14:00)
[2016-08-15] MEDS: DAPTOmycin INJ 250 MG in SODIUM CHLORIDE 0.9% INJ 100 ML IV SCH (16:45)
[2016-08-15] MEDS: LEVOFLOXACIN 750 MG PREMIX INJ 150 ML IV SCH (17:54)
[2016-08-16] VITALS (7 sets, daily range): BP systolic 66–82; BP diastolic 44–56; PULSE 94–115; RESP 16–18; TEMP 95.8–98.5; O2SAT 93–97
[2016-08-16 05:11] LABS: BICARBONATE 26.1 MEQ/L (21.0-32.0); POTASSIUM 3.3 MEQ/L (3.5-5.1)
[2016-08-16 05:36] LABS: CALCIUM-PROTEIN CORRECTED 8.4 MG/DL (8.5-10.1)
[2016-08-16] MEDS: PANTOPRAZOLE SOD 20 MG DELAYED RELEASE TAB PO SCH ×2 (08:43→21:28)
[2016-08-16] MEDS: GABAPENTIN 250 MG/5 ML UDC PO SCH ×3 (08:43→18:21)
[2016-08-16] MEDS: SODIUM CHLORIDE 0.9% FLUSH 10 ML FLUSH IV FLUSH SCH ×2 (08:43→21:00)
--- NOTE | 2016-08-16 09:20 | HHI.IDPN ---
Subjective Subjective Remarks Notes reviewed Low grade temps yesterday x 1 Afebrile since Weak cough CXR clear No abdominal pain Has a lot of output from her umbilical opening Antibiotics Cubicin Levaquin Flagyl Lines PIV Past Medical History Pancytopenia Scleroderma, lupus CREST syndrome Cirrhosis, , esophageal varices Chronic venous stasis ulcer Peripheral neuropathy Splenomegaly Peripheral vascular disease Hypertension Vasculitis Allergies: Coded Allergies: Vancomycin (Verified Allergy, Severe, HIVES, 08/13/16) Cleocin (Verified Allergy, Intermediate, loose stool and diarrhea, 08/13/16 ) Minipress (Verified Allergy, Mild, ANXIETY, 08/13/16) Sulfa (Verified Allergy, Unknown, UNKNOWN, 08/13/16) Rocephin (Verified Adverse Reaction, Mild, ANXIETY, 08/13/16) *MDRO Multi-Drug Resistant Organism (Verified Adverse Reaction, Unknown, ESBL, MRSA, 08/15/16) MRSA (leg wound) - 10/05/2015, ESBL+Klebsiella Pneumoniae (leg-01/18/16) MRSA PCR Screen #1 NEGATIVE - 08/15/16 Objective . Vital Signs Date Time Temp Pulse Resp B/P Pulse Ox O2 Delivery O2 Flow Rate FiO2 08/16/16 08:42 73/50 08/16/16 08:00 97.3 102 16 68/44 93 08/16/16 02:00 80/50 08/16/16 00:00 98.5 115 18 66/46 94 08/15/16 18:03 98.6 101 17 82/60 95 08/15/16 16:00 97.3 103 17 80/50 94 08/15/16 12:00 97.6 108 16 84/54 98 88/58 08/15/16 09:30 97 21 08/15/16 08/15/16 08/16/16 15:00 23:00 07:00 Intake Total 822 ml 301 ml 61 ml Output Total 1250 ml 750 ml 200 ml Balance -428 ml -449 ml -139 ml Intake Oral 720 ml IV Total 102 ml 301 ml 61 ml Drainage Total 1250 ml 750 ml 200 ml # Voids 3 0 1 # Bowel Movements 1 0 . Laboratory Tests Test 08/15/16 04:03 White Blood Count 9.7 TH/MM3 Red Blood Count 3.86 MIL/MM3 Hemoglobin 11.4 GM/DL Hematocrit 33.3 % Mean Corpuscular Volume 86.2 FL Mean Corpuscular Hemoglobin 29.5 PG Mean Corpuscular Hemoglobin 34.3 % Concent Red Cell Distribution Width 19.0 % Platelet Count 132 TH/MM3 Mean Platelet Volume 7.6 FL Neutrophils (%) (Auto) 80.9 % Lymphocytes (%) (Auto) 7.3 % Monocytes (%) (Auto) 7.3 % Eosinophils (%) (Auto) 4.0 % Basophils (%) (Auto) 0.5 % Neutrophils # (Auto) 7.9 TH/MM3 Lymphocytes # (Auto) 0.7 TH/MM3 Monocytes # (Auto) 0.7 TH/MM3 Eosinophils # (Auto) 0.4 TH/MM3 Basophils # (Auto) 0.0 TH/MM3 CBC Comment DIFF FINAL Differential Comment Laboratory Tests Test 08/15/16 08/16/16 04:03 04:16 Sodium Level 141 MEQ/L 139 MEQ/L Potassium Level 3.3 MEQ/L 3.3 MEQ/L Chloride Level 105 MEQ/L 105 MEQ/L Carbon Dioxide Level 26.3 MEQ/L 26.1 MEQ/L Anion Gap 10 MEQ/L 8 MEQ/L Blood Urea Nitrogen 17 MG/DL 22 MG/DL Creatinine 0.98 MG/DL 1.07 MG/DL Estimat Glomerular Filtration 58 ML/MIN 52 ML/MIN Rate Random Glucose 110 MG/DL 118 MG/DL Calcium Level 7.0 MG/DL 6.7 MG/DL Protein Corrected Calcium 8.7 MG/DL 8.4 MG/DL Total Protein 4.1 GM/DL 4.0 GM/DL Total Creatine Kinase 69 U/L Microbiology Date/Time Procedure Status Source Growth 08/14/16 13:40 Aerobic Blood Culture - Preliminary Resulted Blood Peripheral NO GROWTH IN 1 DAY 08/14/16 13:40 Anaerobic Blood Culture - Preliminary Resulted Blood Peripheral NO GROWTH IN 1 DAY 08/14/16 13:51 Aerobic Blood Culture - Preliminary Resulted Blood Peripheral NO GROWTH IN 1 DAY 08/14/16 13:51 Anaerobic Blood Culture - Preliminary Resulted Blood Peripheral NO GROWTH IN 1 DAY Imaging Chest X-Ray 08/14/16 0000 Signed Impressions: Service Date/Time: Sunday, August 14, 2016 14:41 - CONCLUSION: No acute disease. There is no evidence of pneumonia. Obed Baird MD Abdomen/Pelvis CT 08/13/16 0000 Signed Impressions: Service Date/Time: Saturday, August 13, 2016 14:25 - CONCLUSION: 1. Inhomogeneous cirrhotic appearing liver with no focal mass. 2. Moderate splenomegaly with large splenic varices. 3. Diffuse anasarca. 4. Apparent eventration of the right hemidiaphragm with large amount of fluid. Obed Baird MD Physical Exam GENERAL: Awake and alert, cachectic, looks chronically ill appearing, not SOB SKIN: Cool and dry. No generalized rash. Has some spider nevi face and upper chest. No ecchymoses. Has poor turgor HEENT: [place] conjunctivae. No scleral icterus. No injection or drainage. Moist oral mucosa. NECK: Trachea midline. No JVD or lymphadenopathy. Supple, nontender, no meningeal signs. CARDIOVASCULAR: Regular rate and rhythm without murmurs, gallops, or rubs. RESPIRATORY: Clear to auscultation. Breath sounds equal bilaterally. Decreased at the bases. GASTROINTESTINAL: Abdomen soft,, not tender, fluid in dependent portion, fluid is clear in collection bag. Bowel sounds are present and normoactive. There is no tenderness, no guarding, no rebound MUSCULOSKELETAL: Extremities without clubbing, or cyanosis. BLE markedly improved. Has chronic tree bark appearance of skin in both legs. Erythema on L foot much improved NEUROLOGICAL: Grossly non-focal PSYCH: Flat affect, calm and cooperative LINE: PIV with no evidence of infection Assessment & Plan Remarks IMPRESSION Cirrhosis with ascites, draining at umbilicus where she has a large UH - no evidence of SBP but at risk for developing peritonitis due to open wound Lenard lower extremity ulcers, stasis ulcers, with cellulitis L foot Cough, ?pneumonia - CXR clear CREST syndrome Cachexia RECOMMENDATION Change Cubicin to Zyvox for cellulitis foot with wound - allergic to Vanco and Cleocin - give 7 days for cellulitis Continue Levaquin per surgery - change to po - The surgeon can determine how long to keep the Abx which is being given prophyclactically per their recommendations Wound care per podiatry Patient can be D/C from ID standpoint I will sign off Please call if there is any new ID issue or question this weekend Jaylyn Hair MD Aug 16, 2016 09:20
[2016-08-16] MEDS: LINEZOLID 600 MG TAB PO SCH ×2 (09:37→21:28)
--- NOTE | 2016-08-16 10:06 | HHI.FPPN ---
Subjective Remarks VERY WEAK REPORTS SHE IS NOT ABLE TO SIT UP WALKED SOME YESTERDAY LARGE HERNIA CLEAR FLUID OUTPUT OBVIOUSLY WASTING D/W RN Objective Vitals Vital Signs Date Time Temp Pulse Resp B/P Pulse Ox O2 Delivery O2 Flow Rate FiO2 08/16/16 08:42 73/50 08/16/16 08:00 97.3 102 16 68/44 93 08/16/16 02:00 80/50 08/16/16 00:00 98.5 115 18 66/46 94 08/15/16 18:03 98.6 101 17 82/60 95 08/15/16 16:00 97.3 103 17 80/50 94 08/15/16 12:00 97.6 108 16 84/54 98 88/58 I/O 08/15/16 08/15/16 08/15/16 08/16/16 08/16/16 08/16/16 07:00 15:00 23:00 07:00 15:00 23:00 Intake Total 822 ml 301 ml 61 ml Output Total 575 ml 1250 ml 750 ml 200 ml Balance -575 ml -428 ml -449 ml -139 ml Intake Oral 720 ml IV Total 102 ml 301 ml 61 ml Drainage Total 575 ml 1250 ml 750 ml 200 ml # Voids 3 0 1 # Bowel Movements 1 0 Result Diagram: 08/15/16 0403 08/16/16 0416 Objective Remarks GENERAL: SKIN: Warm and dry. large ulcers b legs HEAD: Atraumatic. Normocephalic. EYES: Pupils equal and round. No scleral icterus. No injection or drainage. ENT: No nasal bleeding or discharge. Mucous membranes pink and moist. NECK: Trachea midline. No JVD. CARDIOVASCULAR: Regular rate and rhythm. RESPIRATORY: No accessory muscle use. Clear to auscultation. Breath sounds equal bilaterally. GASTROINTESTINAL: Abdomen soft, non-tender, nondistended. Hepatic and splenic margins not palpable. MUSCULOSKELETAL: Extremities without clubbing, cyanosis, or edema. No obvious deformities. NEUROLOGICAL: Awake and alert. No obvious cranial nerve deficits. Motor grossly within normal limits. 2 out of 5 muscle strength in the arms and legs. Normal speech. PSYCHIATRIC: Appropriate mood and affect; insight and judgment normal. Medications and IVs Current Medications Medications (Trade) Dose Ordered Sig/Jose M Route Start Time Stop Time Status Last Admin (NS Flush) 2 ml UNSCH PRN IV FLUSH 08/13/16 15:45 (NS Flush) 2 ml BID IV FLUSH 08/13/16 21:00 08/16/16 08:43 (Tylenol) 650 mg Q4H PRN PO 08/13/16 15:45 (Zofran Inj) 4 mg Q6H PRN IVP 08/13/16 16:00 (Compazine Supp) 25 mg Q12H PRN RECTAL 08/13/16 16:00 (Ambien) 5 mg HS PRN PO 08/13/16 16:00 (Narcan Inj) 0.4 mg UNSCH PRN IV 08/13/16 15:45 (Apresoline Inj) 20 mg Q4H PRN IV PUSH 08/13/16 16:00 (Ativan) 0.5 mg Q8H PRN PO 08/13/16 16:00 (Catapres) 0.1 mg Q6H PRN PO 08/13/16 16:00 (Neurontin Liq) 600 mg TID PO 08/13/16 18:00 08/16/16 08:43 (Protonix) 20 mg BID PO 08/13/16 21:00 08/16/16 08:43 (Roxicodone) 15 mg BID PRN PO 08/13/16 16:00 08/15/16 16:47 (Zyvox) 600 mg Q12HR PO 08/16/16 09:15 08/23/16 09:14 08/16/16 09:37 (Levaquin) 500 mg DAILY PO 08/16/16 18:00 A/P Assessment and Plan 1. Cirrhosis with ascites, risk of developing Spontaneous bacterial peritonitis. 2. Lupus. 3. Mixed connective tissue disease. 4. CREST syndrome. 5. Hypernatremia 6. Hypokalemia 7. Esophageal varices. 8. Peripheral vascular disease. 9. Venostasis ulcers. 10. Scleroderma. 11. Iron-deficiency anemia. 12. History of MRSA of the right lower extremity. 13. History of sepsis. PLAN- 1. Levaquin 750 daily and ZYVOX 2. Metronidazole 3. hold diuretics for now 4. Gabapentin 600 mg t.i.d. 5. Oxycodone 15 mg b.i.d. p.r.n. pain. 6. Protonix 20 mg b.i.d. 7. Physical therapy. 8. General surgery consult for her umbilical hernia. 9. Infectious disease consult for spontaneous bacterial peritonitis. 10. Podiatry consult for her leg wounds. 11. Wound ostomy nurse consult for leg wounds. 12. am labs 13. replace lytes 14. Add IVF's due to large hernia fluid output and pt obviously dehydrated now. 15. Dr Roddy Cutler consult for progression of MCTD, Lupus, and cirrhosis. Steven Navarro MD Aug 16, 2016 10:06
[2016-08-16] MEDS ORDERED: SODIUM CHLORID 0.9% 500 ML INJ 500 ML IV ONE ×2 (12:00→21:15)
[2016-08-16] MEDS: NS + KCL 20 MEQ INJ 1,000 ML IV SCH (13:10)
--- NOTE | 2016-08-16 16:26 | HHI.PR ---
Subjective Subjective Notes She is feeling weak and does have abdominal discomfort today. Objective Vitals/I&O Vital Signs Date Time Temp Pulse Resp B/P Pulse Ox O2 Delivery O2 Flow Rate FiO2 08/16/16 12:00 95.8 105 18 82/56 93 08/15/16 09:30 21 08/13/16 17:25 Room Air Labs Laboratory Tests Test 08/16/16 04:16 Sodium Level 139 Potassium Level 3.3 Chloride Level 105 Carbon Dioxide Level 26.1 Anion Gap 8 Blood Urea Nitrogen 22 Creatinine 1.07 Estimat Glomerular Filtration 52 Rate Random Glucose 118 Calcium Level 6.7 Protein Corrected Calcium 8.4 Total Creatine Kinase 69 Total Protein 4.0 Albumin 1.3 Date/Time Procedure Status Source Growth 08/14/16 13:51 Aerobic Blood Culture - Preliminary Resulted Blood Peripheral NO GROWTH IN 2 DAYS 08/14/16 13:51 Anaerobic Blood Culture - Preliminary Resulted Blood Peripheral NO GROWTH IN 2 DAYS Radiology Last Impressions Abdomen/Pelvis CT 08/13/16 0000 Signed Impressions: Service Date/Time: Saturday, August 13, 2016 14:25 - CONCLUSION: 1. Inhomogeneous cirrhotic appearing liver with no focal mass. 2. Moderate splenomegaly with large splenic varices. 3. Diffuse anasarca. 4. Apparent eventration of the right hemidiaphragm with large amount of fluid. Obed Baird MD Narrative Exam NAD Thin, frail, cachectic Abd soft, mild periumbilical tenderness, leakage of clear fluid from umbilicus and partially reducible umbilical hernia present; urostomy with 2200cc clear output since placement A/P Assessment and Plan 61 yo F with cirrhosis, severe protein calorie malnutrition who has ascitic leak from skin overlying umbilical hernia. Continue urostomy to control output. 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 I think surgery is very high risk for poor wound healing, morbidity, and mortality. I will consult palliative care to help with decision making and discussion with her. I do not recommend surgery at this time and doubt she is going to be able to tolerate it any time soon. She really may benefit most from hospice although I did not broach hospice discussion with her. She asked about considering treatment at [facility], but the only thing that I think they might add would be a dedicated GI mop machine operator. Dr. Muñiz also saw her today at my request and is in agreement not to recommend operative intervention. Barrington,Jesse MD Aug 16, 2016 16:26
[2016-08-16] MEDS: LEVOFLOXACIN 500 MG TAB PO SCH (18:21)
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
[2016-08-16] MEDS ORDERED: DEXT 5%-NACL 0.9% 500 ML INJ 500 ML IV ONE (21:30)
[2016-08-17] VITALS (14 sets, daily range): BP systolic 70–98; BP diastolic 44–60; PULSE 80–110; RESP 16–20; TEMP 96.4–98.6; O2SAT 92–98
[2016-08-17] MEDS ORDERED: CHLORHEXIDINE GLUCONATE 2 % 1 PACK (2 CLOTHS)(extra cloths) TOPICAL PRN (01:00)
[2016-08-17] MEDS ORDERED: NOREPINEPHRINE 4 MG/D5W 250 ML IV SCH (01:15)
[2016-08-17] MEDS: CHLORHEXIDINE GLUCONATE 2 % 1 PACK (2 CLOTHS)(taper/protocol) TOPICAL SCH (04:00)
[2016-08-17] MEDS: NS + KCL 20 MEQ INJ 1,000 ML IV SCH ×2 (04:49→15:46)
--- NOTE | 2016-08-17 05:41 | PD.CONS ---
HPI Service Critical Care Medicine Consult Requested By Reason for Consult Hypotension Primary Care Physician Steven Navarro MD History of Present Illness 61 y/o woman with end-stage cirrhosis and malnutrition. Conversant and adequately perfused. Breathing comfortably. Review of Systems ROS Not hungry. No SOB or chest pain. Past Family Social History Allergies: Coded Allergies: Vancomycin (Verified Allergy, Severe, HIVES, 08/13/16) Cleocin (Verified Allergy, Intermediate, loose stool and diarrhea, 08/13/16 ) Minipress (Verified Allergy, Mild, ANXIETY, 08/13/16) Sulfa (Verified Allergy, Unknown, UNKNOWN, 08/13/16) Rocephin (Verified Adverse Reaction, Mild, ANXIETY, 08/13/16) *MDRO Multi-Drug Resistant Organism (Verified Adverse Reaction, Unknown, ESBL, MRSA, 08/15/16) MRSA (leg wound) - 10/05/2015, ESBL+Klebsiella Pneumoniae (leg-01/18/16) MRSA PCR Screen #1 NEGATIVE - 08/15/16 Physical Exam Vital Signs Vital Signs Date Time Temp Pulse Resp B/P Pulse Ox O2 Delivery O2 Flow Rate FiO2 08/17/16 02:00 86 08/17/16 00:27 96.4 100 16 70/44 93 08/17/16 00:11 78/55 08/16/16 22:35 80/45 08/16/16 20:00 97.4 94 17 79/50 97 08/16/16 12:00 95.8 105 18 82/56 93 08/16/16 08:42 73/50 08/16/16 08:00 97.3 102 16 68/44 93 Physical Exam P 86, BP 76/49, R 14 nonlabored, sats 94% Lungs: Clear, no wheezes or crackles. Heart: NL S1S2, no JVD. Abdomen: Draining umbilical hernia with ascites. Soft, no guarding or tenderness. Extremities: Weeping lesions both legs, wrapped with Aces. Neuro: Moves 4 limbs, alert cooperative. Laboratory Laboratory Tests Test 08/17/16 00:56 Nasal Screen MRSA (PCR) MRSA NOT DETECTED Date/Time Procedure Status Source Growth 08/14/16 13:51 Aerobic Blood Culture - Preliminary Resulted Blood Peripheral NO GROWTH IN 2 DAYS 08/14/16 13:51 Anaerobic Blood Culture - Preliminary Resulted Blood Peripheral NO GROWTH IN 2 DAYS Result Diagram: 4/27/17 0403 08/16/16 0416 Assessment and Plan Assessment and Plan Assessment: 1. End-stage hepatic cirrhosis. 2. Open umbilical hernia sac with draining ascites. 3. Severe protein calorie malnutrition. Plan: 1. Comfort measures until family decides hospice care. 2. Vasopressors if necessary to maintain mentation. 3. Bed rest. Overall impression: Allow BP to any level as long as she can mentate. If family still has not chosen hospice treat with levophed. Shay Newsome MD Aug 17, 2016 05:41
[2016-08-17 07:11] LABS: AUTOMATED NEUTROPHIL # 7.2 TH/MM3 (1.8-7.7); BASOPHIL % 0.5 % (0.0-2.0); EOSINOPHIL # 0.3 TH/MM3 (0-0.4); EOSINOPHIL % 3.5 % (0.0-4.0); HEMATOCRIT 33.4 % (35.0-46.0); LYMPH % 8.6 % (9.0-44.0); LYMPHOCYTE # 0.8 TH/MM3 (1.0-4.8); MEAN CELL VOLUME 88.4 FL (80.0-100.0); MEAN CORPUSCULAR HEMOGLOBIN 28.8 PG (27.0-34.0); MEAN CORPUSCULAR HGB CONC 32.6 % (32.0-36.0); MONO % 7.1 % (0.0-8.0); NEUT % 80.3 % (16.0-70.0); PLATELET COUNT 93 TH/MM3 (150-450); RED BLOOD COUNT 3.78 MIL/MM3 (4.00-5.30); RED CELL DISTRIBUTION WIDTH 19.7 % (11.6-17.2)
[2016-08-17 07:14] LABS: BICARBONATE 22.9 MEQ/L (21.0-32.0); MAGNESIUM 1.6 MG/DL (1.5-2.5); POTASSIUM 3.4 MEQ/L (3.5-5.1)
[2016-08-17 07:29] LABS: CALCIUM-PROTEIN CORRECTED 8.9 MG/DL (8.5-10.1)
[2016-08-17] MEDS: PANTOPRAZOLE SOD 20 MG DELAYED RELEASE TAB PO SCH ×2 (07:39→20:09)
[2016-08-17] MEDS: LEVOFLOXACIN 500 MG TAB PO SCH (07:39)
[2016-08-17] MEDS: LINEZOLID 600 MG TAB PO SCH ×2 (07:39→20:09)
[2016-08-17] MEDS: GABAPENTIN 250 MG/5 ML UDC PO SCH ×3 (07:39→18:18)
[2016-08-17] MEDS: SODIUM CHLORIDE 0.9% FLUSH 10 ML FLUSH IV FLUSH SCH ×2 (07:42→20:02)
[2016-08-17 07:52] LABS: HEMO FLAGS AUTO DIFF
--- NOTE | 2016-08-17 09:29 | HHI.PR ---
Subjective Subjective Notes She is sitting in bed, eating, and seems a bit more alert and comfortable today. Objective Vitals/I&O Vital Signs Date Time Temp Pulse Resp B/P Pulse Ox O2 Delivery O2 Flow Rate FiO2 08/17/16 06:00 80 08/17/16 04:00 97.6 20 84/51 95 08/15/16 09:30 21 08/13/16 17:25 Room Air Labs Laboratory Tests Test 08/17/16 08/17/16 00:56 05:36 Nasal Screen MRSA (PCR) MRSA NOT DETECTED White Blood Count 9.0 Red Blood Count 3.78 Hemoglobin 10.9 Hematocrit 33.4 Mean Corpuscular Volume 88.4 Mean Corpuscular Hemoglobin 28.8 Mean Corpuscular Hemoglobin 32.6 Concent Red Cell Distribution Width 19.7 Platelet Count 93 Mean Platelet Volume 7.7 Neutrophils (%) (Auto) 80.3 Lymphocytes (%) (Auto) 8.6 Monocytes (%) (Auto) 7.1 Eosinophils (%) (Auto) 3.5 Basophils (%) (Auto) 0.5 Neutrophils # (Auto) 7.2 Lymphocytes # (Auto) 0.8 Monocytes # (Auto) 0.6 Eosinophils # (Auto) 0.3 Basophils # (Auto) 0.0 CBC Comment AUTO DIFF Sodium Level 141 Potassium Level 3.4 Chloride Level 109 Carbon Dioxide Level 22.9 Anion Gap 9 Blood Urea Nitrogen 26 Creatinine 0.94 Estimat Glomerular Filtration 61 Rate Random Glucose 84 Calcium Level 7.2 Protein Corrected Calcium 8.9 Magnesium Level 1.6 Total Protein 4.1 Date/Time Procedure Status Source Growth 08/14/16 13:51 Aerobic Blood Culture - Preliminary Resulted Blood Peripheral NO GROWTH IN 2 DAYS 08/14/16 13:51 Anaerobic Blood Culture - Preliminary Resulted Blood Peripheral NO GROWTH IN 2 DAYS Radiology Last Impressions Abdomen/Pelvis CT 08/13/16 0000 Signed Impressions: Service Date/Time: Saturday, August 13, 2016 14:25 - CONCLUSION: 1. Inhomogeneous cirrhotic appearing liver with no focal mass. 2. Moderate splenomegaly with large splenic varices. 3. Diffuse anasarca. 4. Apparent eventration of the right hemidiaphragm with large amount of fluid. Obed Baird MD Narrative Exam NAD Thin, frail, cachectic Abd soft, mild periumbilical tenderness, leakage of clear fluid from umbilicus and partially reducible umbilical hernia present; urostomy with 1700cc clear output since placement A/P Assessment and Plan 61 yo F with cirrhosis, severe protein calorie malnutrition who has ascitic leak from skin overlying umbilical hernia. Albumin 1.3. Continue urostomy to control output. Appreciate palliative care input. No operative plans at this time. Jesse Ferris MD Aug 17, 2016 09:29
[2016-08-17 11:45] LABS: ACANTHOCYTES 1+ (NORMAL); BURR CELLS 1+ (NORMAL); OVALOCYTES 1+ (NORMAL); PLATELET ESTIMATE SMEAR LOW (NORMAL); PLATELET MORPHOLOGY NORMAL (NORMAL); SCAN/DIFF AUTO DIFF CONFIRMED
[2016-08-17] MEDS: ALBUMIN HUMAN 25% 25 GM/100 ML BAGP IV SCH (13:58)
[2016-08-18] VITALS (9 sets, daily range): BP systolic 68–92; BP diastolic 48–56; PULSE 77–109; RESP 12–18; TEMP 97.6–98; O2SAT 95–98
[2016-08-18] MEDS: ALBUMIN HUMAN 25% 25 GM/100 ML BAGP IV SCH ×2 (02:45→14:00)
[2016-08-18] MEDS: NS + KCL 20 MEQ INJ 1,000 ML IV SCH ×2 (05:56→21:12)
[2016-08-18] MEDS: MIDODRINE 5 MG TAB PO PRN ×2 (05:57→19:25)
[2016-08-18] MEDS: SODIUM CHLORIDE 0.9% FLUSH 10 ML FLUSH IV FLUSH SCH ×2 (09:00→19:58)
[2016-08-18] MEDS: GABAPENTIN 250 MG/5 ML UDC PO SCH ×3 (09:00→17:09)
[2016-08-18] MEDS: LINEZOLID 600 MG TAB PO SCH ×2 (09:16→19:57)
[2016-08-18] MEDS: PANTOPRAZOLE SOD 20 MG DELAYED RELEASE TAB PO SCH ×2 (09:16→19:57)
[2016-08-18] MEDS: LEVOFLOXACIN 500 MG TAB PO SCH (09:16)
--- NOTE | 2016-08-18 15:21 | HHI.PR ---
Subjective Subjective Notes She is tired. Just spent time with her family and had some pizza. High volume output of ascites. Objective Vitals/I&O Vital Signs Date Time Temp Pulse Resp B/P Pulse Ox O2 Delivery O2 Flow Rate FiO2 08/18/16 12:00 97.6 109 16 68/52 95 08/18/16 08:00 Room Air 08/15/16 09:30 21 Labs Date/Time Procedure Status Source Growth 08/14/16 13:51 Aerobic Blood Culture - Preliminary Resulted Blood Peripheral NO GROWTH IN 4 DAYS 08/14/16 13:51 Anaerobic Blood Culture - Preliminary Resulted Blood Peripheral NO GROWTH IN 4 DAYS Radiology Last Impressions Abdomen/Pelvis CT 08/13/16 0000 Signed Impressions: Service Date/Time: Saturday, August 13, 2016 14:25 - CONCLUSION: 1. Inhomogeneous cirrhotic appearing liver with no focal mass. 2. Moderate splenomegaly with large splenic varices. 3. Diffuse anasarca. 4. Apparent eventration of the right hemidiaphragm with large amount of fluid. Obed Baird MD Narrative Exam NAD Thin, frail, cachectic Abd soft, mild periumbilical tenderness, leakage of clear fluid from umbilicus and partially reducible umbilical hernia present; urostomy with 3900cc clear output since placement A/P Assessment and Plan 61 yo F with cirrhosis, severe protein calorie malnutrition who has ascitic leak from skin overlying umbilical hernia. Albumin 1.3. Continue urostomy to control output. Appreciate palliative care input. No operative plans at this time. Jesse Ferris MD Aug 18, 2016 15:21
--- NOTE | 2016-08-18 16:54 | HHI.PR ---
Subjective Remarks Patient resting comfortably in bed Afebrile, still having pain but it is tolerable with the pain medication Objective Vitals Vital Signs Date Time Temp Pulse Resp B/P Pulse Ox O2 Delivery O2 Flow Rate FiO2 08/18/16 12:00 97.6 109 16 68/52 95 08/18/16 08:00 96 Room Air 08/18/16 08:00 97.9 77 12 81/51 98 08/18/16 06:07 84 85/50 98 08/18/16 04:51 92/56 08/18/16 04:00 97.8 93 16 85/51 96 08/18/16 00:00 97.6 90 17 83/53 97 08/17/16 22:42 85 08/17/16 21:30 97.5 85 16 87/53 98 08/17/16 21:15 Room Air 08/17/16 20:00 97.6 89 16 93/60 98 08/17/16 20:00 91 08/17/16 18:00 84 I/O 08/17/16 08/17/16 08/17/16 08/18/16 08/18/16 08/18/16 07:00 15:00 23:00 07:00 15:00 23:00 Intake Total 2168 ml 1264 ml 120 ml 240 ml Output Total 950 ml 2400 ml 1800 ml Balance 1218 ml -1136 ml -1680 ml 240 ml Intake Oral 240 ml 670 ml 120 ml 240 ml IV Total 1928 ml 594 ml Output Urine Total 300 ml 100 ml 200 ml Drainage Total 650 ml 2300 ml 1600 ml # Voids 1 # Bowel Movements 1 1 1 2 Result Diagram: 08/17/16 0536 08/17/16 0536 Objective Remarks GENERAL: This is a well-nourished, well-developed patient, in no apparent distress. CARDIOVASCULAR: Regular rate and rhythm without murmurs, gallops, or rubs. RESPIRATORY: Clear to auscultation. Breath sounds equal bilaterally. No wheezes , rales, or rhonchi. GASTROINTESTINAL: Abdomen soft, non-tender, nondistended. Normal active bowel sounds, ostomy in place MUSCULOSKELETAL: Extremities without clubbing, cyanosis, or edema. NEURO: Alert & Oriented x4 to person, place, time, situation. Moves all ext x4 A/P Assessment and Plan 61 years old female admitted with - End-stage hepatic cirrhosis. - Open umbilical hernia sac with draining ascites. - Severe protein calorie malnutrition. Plan: - Comfort measures until family decides hospice care. - Gen. surgery following - Vasopressors if necessary to maintain mentation. - Bed rest. Brianna Gary MD Aug 18, 2016 16:54
[2016-08-19] VITALS (9 sets, daily range): BP systolic 82–105; BP diastolic 48–61; PULSE 73–95; RESP 18–20; TEMP 97.4–98.3; O2SAT 94–98
[2016-08-19] MEDS: ALBUMIN HUMAN 25% 25 GM/100 ML BAGP IV SCH ×2 (02:27→13:22)
[2016-08-19] MEDS: MIDODRINE 5 MG TAB PO PRN ×3 (03:13→20:33)
--- NOTE | 2016-08-19 08:16 | HHI.FPPN ---
Objective Vitals Vital Signs Date Time Temp Pulse Resp B/P Pulse Ox O2 Delivery O2 Flow Rate FiO2 08/19/16 04:00 98.1 84 18 105/61 96 08/19/16 04:00 Room Air 08/19/16 01:00 98.1 95 19 99/61 94 08/19/16 00:05 98.2 92 20 86/56 97 08/19/16 00:00 Room Air 08/18/16 20:07 95 08/18/16 20:00 98.0 96 18 79/53 96 08/18/16 20:00 Room Air 08/18/16 20:00 Room Air 08/18/16 16:00 97.7 90 16 78/48 98 08/18/16 12:00 97.6 109 16 68/52 95 I/O 08/18/16 08/18/16 08/18/16 08/19/16 08/19/16 08/19/16 07:00 15:00 23:00 07:00 15:00 23:00 Intake Total 240 ml 600 ml 1735 ml Output Total 2000 ml 600 ml Balance 240 ml -1400 ml 1135 ml Intake Oral 240 ml 600 ml IV Total 1735 ml Drainage Total 2000 ml 600 ml # Voids 1 # Bowel Movements 2 0 Result Diagram: 08/17/1636 08/17/16535 Objective Remarks GENERAL: SKIN: Warm and dry. large ulcers b legs HEAD: Atraumatic. Normocephalic. EYES: Pupils equal and round. No scleral icterus. No injection or drainage. ENT: No nasal bleeding or discharge. Mucous membranes pink and moist. NECK: Trachea midline. No JVD. CARDIOVASCULAR: Regular rate and rhythm. RESPIRATORY: No accessory muscle use. Clear to auscultation. Breath sounds equal bilaterally. GASTROINTESTINAL: Abdomen soft, non-tender, nondistended. Hepatic and splenic margins not palpable. MUSCULOSKELETAL: Extremities without clubbing, cyanosis, or edema. No obvious deformities. NEUROLOGICAL: Awake and alert. No obvious cranial nerve deficits. Motor grossly within normal limits. 2 out of 5 muscle strength in the arms and legs. Normal speech. PSYCHIATRIC: Appropriate mood and affect; insight and judgment normal. Steven Navarro MD August 19, 2016 08:16 1. Cirrhosis with ascites, risk of developing Spontaneous bacterial peritonitis. 2. Lupus. 3. Mixed connective tissue disease. 4. CREST syndrome. 5. Hypernatremia 6. Hypokalemia 7. Esophageal varices. 8. Peripheral vascular disease. 9. Venostasis ulcers. 10. Scleroderma. 11. Iron-deficiency anemia. 12. History of MRSA of the right lower extremity. 13. History of sepsis. PLAN- 1. Levaquin 750 daily and ZYVOX 2. Metronidazole 3. hold diuretics for now 4. Gabapentin 600 mg t.i.d. 5. Oxycodone 15 mg b.i.d. p.r.n. pain. 6. Protonix 20 mg b.i.d. 7. Physical therapy. 8. General surgery consult for her umbilical hernia. 9. Infectious disease consult for spontaneous bacterial peritonitis. 10. Podiatry consult for her leg wounds. 11. Wound ostomy nurse consult for leg wounds. 12. am labs 13. replace lytes 14. Add IVF's due to large hernia fluid output and pt obviously dehydrated now. 15. Dr Roddy Cutler consult for progression of MCTD, Lupus, and cirrhosis. Steven Navarro MD August 19, 2016 08:16
--- NOTE | 2016-08-19 08:29 | HHI.FPPN ---
Subjective Remarks VERY WEAK NOT WALKING NOW HARSH COUGH D/W RN Objective Vitals Vital Signs Date Time Temp Pulse Resp B/P Pulse Ox O2 Delivery O2 Flow Rate FiO2 08/19/16 04:00 98.1 84 18 105/61 96 08/19/16 04:00 Room Air 08/19/16 01:00 98.1 95 19 99/61 94 08/19/16 00:05 98.2 92 20 86/56 97 08/19/16 00:00 Room Air 08/18/16 20:07 95 08/18/16 20:00 98.0 96 18 79/53 96 08/18/16 20:00 Room Air 08/18/16 20:00 Room Air 08/18/16 16:00 97.7 90 16 78/48 98 08/18/16 12:00 97.6 109 16 68/52 95 I/O 08/18/16 08/18/16 08/18/16 08/19/16 08/19/16 08/19/16 07:00 15:00 23:00 07:00 15:00 23:00 Intake Total 240 ml 600 ml 1735 ml Output Total 2000 ml 600 ml Balance 240 ml -1400 ml 1135 ml Intake Oral 240 ml 600 ml IV Total 1735 ml Drainage Total 2000 ml 600 ml # Voids 1 # Bowel Movements 2 0 Result Diagram: 08/17/1653508/17/16535 Objective Remarks GENERAL: SKIN: Warm and dry. large ulcers b legs HEAD: Atraumatic. Normocephalic. EYES: Pupils equal and round. No scleral icterus. No injection or drainage. ENT: No nasal bleeding or discharge. Mucous membranes pink and moist. NECK: Trachea midline. No JVD. CARDIOVASCULAR: Regular rate and rhythm. RESPIRATORY: No accessory muscle use. B RONCHI AND HARSH COUGH GASTROINTESTINAL: Abdomen soft, non-tender, nondistended. Hepatic and splenic margins not palpable. MUSCULOSKELETAL: Extremities without clubbing, cyanosis, or edema. No obvious deformities. NEUROLOGICAL: Awake and alert. No obvious cranial nerve deficits. Motor grossly within normal limits. 2 out of 5 muscle strength in the arms and legs. Normal speech. PSYCHIATRIC: Appropriate mood and affect; insight and judgment normal. Medications and IVs Current Medications Medications (Trade) Dose Ordered Sig/Jose M Route Start Time Stop Time Status Last Admin (NS Flush) 2 ml UNSCH PRN IV FLUSH 08/13/16 15:45 08/18/16 02:45 (NS Flush) 2 ml BID IV FLUSH 08/13/16 21:00 08/18/16 19:58 (Tylenol) 650 mg Q4H PRN PO 08/13/16 15:45 08/18/16 15:00 (Zofran Inj) 4 mg Q6H PRN IVP 08/13/16 16:00 (Compazine Supp) 25 mg Q12H PRN RECTAL 08/13/16 16:00 (Ambien) 5 mg HS PRN PO 08/13/16 16:00 (Narcan Inj) 0.4 mg UNSCH PRN IV 08/13/16 15:45 (Ativan) 0.5 mg Q8H PRN PO 08/13/16 16:00 (Neurontin Liq) 600 mg TID PO 08/13/16 18:00 08/18/16 17:09 (Protonix) 20 mg BID PO 08/13/16 21:00 08/18/16 19:57 (Roxicodone) 15 mg BID PRN PO 08/13/16 16:00 08/17/16 15:46 (Zyvox) 600 mg Q12HR PO 08/16/16 09:15 08/23/16 09:14 08/18/16 19:57 Levofloxacin 500 mg 500 mg DAILY PO 08/16/16 18:00 08/18/16 09:16 (NS + KCl 20 Meq Inj) 1,000 ml @ 70 mls/hr [id number] IV 08/16/16 12:00 08/18/16 21:12 Miscellaneous Information Patient in critical care unit? Ass... [id number] .XX 08/17/16 01:00 08/17/16 01:00 (Chlorhexidine 2% Cloth) 3 pack DAILY@04 TOPICAL 08/17/16 04:00 08/21/16 04:01 08/17/16 04:00 Chlorhexidine Gluconate 3 pack 3 pack UNSCH PRN TOPICAL 08/17/16 01:00 08/22/16 00:48 (Levophed-Dextrose Drip) 250 ml @ 0 mls/hr TITRATE IV 08/17/16 01:15 (Albumin 25% Inj) 25 gm Q12H IV 08/17/16 14:00 08/19/16 02:27 (Proamatine) 5 mg Q8HR PRN PO 08/17/16 14:00 08/19/16 03:13 (Roxicodone) 5 mg Q8H PRN PO 08/17/16 14:15 08/19/16 03:14 A/P Assessment and Plan 1. Cirrhosis with ascites, risk of developing Spontaneous bacterial peritonitis. 2. Lupus. 3. Mixed connective tissue disease. 4. CREST syndrome. 5. Hypernatremia 6. Hypokalemia 7. Esophageal varices. 8. Peripheral vascular disease. 9. Venostasis ulcers. 10. Scleroderma. 11. Iron-deficiency anemia. 12. History of MRSA of the right lower extremity. 13. History of sepsis. PLAN- Levaquin 750 daily and ZYVOX hold diuretics for now Gabapentin 600 mg t.i.d. Oxycodone 15 mg b.i.d. p.r.n. pain. Protonix 20 mg b.i.d. Physical therapy. General surgery consult for her umbilical hernia. Infectious disease consult for spontaneous bacterial peritonitis. Podiatry consult for her leg wounds. Wound ostomy nurse consult for leg wounds. am labs replace [facility] Steven Navarro MD August 19, 2016 08:29
[2016-08-19] MEDS: SODIUM CHLORIDE 0.9% FLUSH 10 ML FLUSH IV FLUSH SCH ×2 (09:00→21:00)
[2016-08-19] MEDS: NS + KCL 40 MEQ INJ 1,000 ML IV SCH ×2 (09:18→22:17)
[2016-08-19] MEDS: GABAPENTIN 250 MG/5 ML UDC PO SCH ×3 (09:19→18:24)
[2016-08-19] MEDS: LINEZOLID 600 MG TAB PO SCH ×2 (09:20→20:33)
[2016-08-19] MEDS: PANTOPRAZOLE SOD 20 MG DELAYED RELEASE TAB PO SCH ×2 (09:20→20:33)
[2016-08-19 09:21] LABS: BICARBONATE 19.8 MEQ/L (21.0-32.0); POTASSIUM 4.2 MEQ/L (3.5-5.1)
[2016-08-19] MEDS: LEVOFLOXACIN 500 MG TAB PO SCH (09:21)
[2016-08-19] MEDS ORDERED: SODIUM CHLOR 0.9% 250 ML INJ 250 ML IV SCH (12:15)
--- NOTE | 2016-08-19 18:00 | HHI.HCPN ---
Reason for visit a. To assist with evaluation and management of symptoms including:fatigued b. To assist medical decision maker(s) with: better understanding of current medical conditions; weighing benefits/burdens of medical treatment options; making medical treatment decisions. Subjective/Interval History Pt hypotensive, was in icu, but transfer back to room. Pt's parents in the room. Again review pt's prognosis and liver disease, challenges she will and continue to face including hypotension, SBP, and can suddenly decline. Spoke about hospice. Pt is not ready to stop albumin, antibiotics or hospitalization. The reason is her daughter has a Wedding in October and at the very least want to make it. She understands the risk and challenges, but she wants to try. I have also called pt's daughter Syh and updated her. Pt completed community DNR, living Will and HCS. Family/friend interactions see thao. Advance Directives Living Will: Completed, but not made available Health Care Surrogate: Completed, but not made available Durable Power of Display Maker: Never completed Objective Vital Signs Date Time Temp Pulse Resp B/P Pulse Ox O2 Delivery O2 Flow Rate FiO2 08/19/16 12:00 98.1 84 18 82/53 97 08/19/16 09:22 Room Air 08/19/16 08:11 73 08/19/16 08:00 97.8 78 18 83/48 98 08/19/16 04:00 98.1 84 18 105/61 96 08/19/16 04:00 Room Air 08/19/16 01:00 98.1 95 19 99/61 94 08/19/16 00:05 98.2 92 20 86/56 97 08/19/16 00:00 Room Air 08/18/16 20:07 95 08/18/16 20:00 98.0 96 18 79/53 96 08/18/16 20:00 Room Air 08/18/16 20:00 Room Air Intake & Output 08/19/16 08/19/16 07:00 19:00 Intake Total 1735 ml Output Total 600 ml 650 ml Balance 1135 ml -650 ml IV Total 1735 ml Drainage Total 600 ml 650 ml Physical Exam CONSTITUTIONAL/GENERAL: frail malnourished, middle age lady, fatigued. TUBES/LINES/DRAINS:piv,colostomy bag over umblilical hernia. SKIN: multipel wounds. HEAD: Atraumatic. Normocephalic. EYES: Pupils equal and round and reactive. Extraocular motions intact. No scleral icterus. No injection or drainage. Fundi not examined. ENT: Hearing grossly normal. Nose without bleeding or purulent drainage. Throat without visible erythema, exudates, masses, or lesions. NECK: Trachea midline. Supple, nontender. No palpable thyroid enlargement or nodularity. CARDIOVASCULAR: Regular rate and rhythm without murmurs, gallops, or rubs. No JVD. Peripheral pulses symmetric. RESPIRATORY/CHEST: Symmetric, unlabored respirations. Clear to auscultation. Breath sounds equal bilaterally. No wheezes, rales, or rhonchi. GASTROINTESTINAL: Abdomen soft, distended. no tenderness. GENITOURINARY: Without palpable bladder distension. Ceballos catheter in place. MUSCULOSKELETAL: Extremities wounds, edema. LYMPHATICS: No palpable cervical or supraclavicular adenopathy. NEUROLOGICAL: Awake and alert. Motor and sensory grossly within normal limits. Follows commands. Cognitively sharp. Moves all extremities. PSYCHIATRIC: No obvious anxiety/depression. no apparent hallucinations or other psychotic thought process. Diagnostic Tests Laboratory Laboratory Tests Test 08/17/16 08/17/16 08/19/16 00:56 05:36 08:30 Nasal Screen MRSA (PCR) MRSA NOT DETECTED (NOT DETECT) White Blood Count 9.0 TH/MM3 (4.0-11.0) Red Blood Count 3.78 MIL/MM3 (4.00-5.30) Hemoglobin 10.9 GM/DL (11.6-15.3) Hematocrit 33.4 % (35.0-46.0) Mean Corpuscular Volume 88.4 FL (80.0-100.0) Mean Corpuscular Hemoglobin 28.8 PG (27.0-34.0) Mean Corpuscular Hemoglobin 32.6 % Concent (32.0-36.0) Red Cell Distribution Width 19.7 % (11.6-17.2) Platelet Count 93 TH/MM3 (150-450) Mean Platelet Volume 7.7 FL (7.0-11.0) Neutrophils (%) (Auto) 80.3 % (16.0-70.0) Lymphocytes (%) (Auto) 8.6 % (9.0-44.0) Monocytes (%) (Auto) 7.1 % (0.0-8.0) Eosinophils (%) (Auto) 3.5 % (0.0-4.0) Basophils (%) (Auto) 0.5 % (0.0-2.0) Neutrophils # (Auto) 7.2 TH/MM3 (1.8-7.7) Lymphocytes # (Auto) 0.8 TH/MM3 (1.0-4.8) Monocytes # (Auto) 0.6 TH/MM3 (0-0.9) Eosinophils # (Auto) 0.3 TH/MM3 (0-0.4) Basophils # (Auto) 0.0 TH/MM3 (0-0.2) CBC Comment AUTO DIFF Differential Comment AUTO DIFF CONFIRMED Platelet Estimate LOW (NORMAL) Platelet Morphology Comment NORMAL (NORMAL) Ovalocytes 1+ (NORMAL) Baxter Cells 1+ (NORMAL) Acanthocytes 1+ (NORMAL) Keratocytes (NORMAL) Sodium Level 141 MEQ/L 142 MEQ/L (136-145) (136-145) Potassium Level 3.4 MEQ/L 4.2 MEQ/L (3.5-5.1) (3.5-5.1) Chloride Level 109 MEQ/L 115 MEQ/L (98-107) (98-107) Carbon Dioxide Level 22.9 MEQ/L 19.8 MEQ/L (21.0-32.0) (21.0-32.0) Anion Gap 9 MEQ/L (5-15) 7 MEQ/L (5-15) Blood Urea Nitrogen 26 MG/DL (7-18) 26 MG/DL (7-18) Creatinine 0.94 MG/DL 0.99 MG/DL (0.50-1.00) (0.50-1.00) Estimat Glomerular Filtration 61 ML/MIN (>89) 57 ML/MIN (>89) Rate Random Glucose 84 MG/DL 86 MG/DL (74-106) (74-106) Calcium Level 7.2 MG/DL 7.7 MG/DL (8.5-10.1) (8.5-10.1) Protein Corrected Calcium 8.9 MG/DL (8.5-10.1) Magnesium Level 1.6 MG/DL (1.5-2.5) Total Protein 4.1 GM/DL (6.4-8.2) Result Diagram: 08/17/16 0536 08/19/16 0830 Assessment and Plan Disease Oriented Problem List: (1) Cirrhosis Comment: auto immune, risk of developing spontaneous bacterial peritonitis. (2) Lupus (3) Scleroderma (4) Mixed connective tissue disease (5) CREST (calcinosis, Raynaud's phenomenon, esophageal dysfunction, sclerodactyly, telangiectasia) (6) Venous stasis ulcer (7) Peripheral neuropathy (8) Protein-calorie malnutrition, moderate (9) Foot ulcer (10) Complete uterine prolapse Symptom Scale: (1) Fatigue 0-10 Scale: 8 (mutifatorial.) Pertinent Non-Medical Issues Psychosocial: Spiritual: Legal: Ethical issues impacting care: Important Contacts Shy Redmond Prognosis 61-year-old with a past medical history significant for mixed connective tissue disorder, lupus, crest syndrome, autoimmune cirrhosis, hypertension, foot ulcers , pancytopenia who was brought in to the hospital due to decreased from her umbilical hernia, with ascitic drainage. Cirrhosis is end stage, high risk of SPB. Overall poor prognosis. Code Status: No Code Plan == Capacity: has capcity to make medical decision. == HCS: Daughter Shy Rubi. ==Code: No code. == Goals. Again review pt's prognosis and liver disease, challenges she will and continue to face including hypotension, SBP, and can suddenly decline. Spoke about hospice. Pt is not ready to stop albumin, antibiotics or hospitalization. The reason is her daughter has a Wedding in October and at the very least want to make it. She understands the risk and challenges, but she wants to try rehab. I have also called pt's daughter Shy and updated her. Pt completed community DNR, living Will and HCS. Spoke with daughter, who is very accepting and realistic. She sees patient's decline, and that prognosis is poor. I reviewed the function of the liver in the body, why patient is having so many symptoms, and that patient likely will continue to decline and not get better. I have reviewed with patient's daughter the healthcare surrogate form and living will, and she is very supportive and will help patient complete it over the weekend, after further discussion with family. I also brought up hospice, and that he can be offered. Reemphasize that the focus would be quality, and not quantity. Reviewed with daughter her current poor quality of life. == fatigued- multifactorial, no med recommendation. == Palliative Care will follow, but pt and family know we will not be available over the weekend. Time Spent Total Floor Time (mins): 40 Face to Face Time (mins): 30 Attestation To help prompt me to consider important information that might be impacting today's encounter and assessment, information from prior notes written by myself or my colleagues may have been "brought forward" into today's note. My signature on this note, however, is an attestation that I personally performed the exam, history, and/or decision-making noted today, and, unless otherwise indicated, the interactions with patient, family, and staff as well as the review of records all occurred today. I also attest that the listed assessment and stated plan reflect my best clinical judgment today based on the combination of historical information, prior notes, and today's exam/ interactions. When time spent is documented, it refers only to time spent today by the signer, or if indicated, combined time spent today by collaborating physician/nurse practitioner. Chon Lozano MD August 19, 2016 18:00
[2016-08-19] MEDS: CHLORHEXIDINE GLUCONATE 2 % 1 PACK (2 CLOTHS)(taper/protocol) TOPICAL SCH (23:52)
[2016-08-20] VITALS: BP 89/54; PULSE 91; RESP 18; TEMP 98.3; O2SAT 98
[2016-08-20] MEDS: ALBUMIN HUMAN 25% 25 GM/100 ML BAGP IV SCH ×2 (01:35→13:35)
[2016-08-20 04:00] VITALS: BP 81/53; PULSE 86; RESP 18; TEMP 98.3; O2SAT 98
[2016-08-20 06:05] VITALS: BP 92/54
[2016-08-20] MEDS: MIDODRINE 5 MG TAB PO PRN (06:06)
[2016-08-20 08:00] VITALS: BP 95/65; PULSE 84; RESP 20; TEMP 98; O2SAT 99
[2016-08-20 08:40] VITALS: PULSE 96
[2016-08-20] MEDS: SODIUM CHLORIDE 0.9% FLUSH 10 ML FLUSH IV FLUSH SCH (09:00)
[2016-08-20] MEDS: LEVOFLOXACIN 500 MG TAB PO SCH (09:48)
[2016-08-20] MEDS: PANTOPRAZOLE SOD 20 MG DELAYED RELEASE TAB PO SCH (09:48)
[2016-08-20] MEDS: LINEZOLID 600 MG TAB PO SCH (09:48)
[2016-08-20] MEDS: GABAPENTIN 250 MG/5 ML UDC PO SCH ×2 (09:49→13:35)
--- NOTE | 2016-08-20 10:23 | HHI.DS ---
Discharge Summary Admission Date Aug 13, 2016 at 15:30 Discharge Date: August 20, 2016 Admitting Diagnosis hernia, ascitic leak (1) Pneumonia (2) Azotemia (3) Hypertension (4) Cellulitis of right lower extremity (5) History of esophageal varices (6) Pancytopenia (7) Bladder retention of urine (8) Poorly controlled ascites (9) Cirrhosis (10) Lupus (systemic lupus erythematosus) (11) CREST (calcinosis, Raynaud's phenomenon, esophageal dysfunction, sclerodactyly, telangiectasia) (12) Venous stasis ulcer (13) Venous hypertension, chronic, with ulcer (14) Scleroderma (15) Lupus (16) Protein-calorie malnutrition, moderate (17) Fatigue (18) Complete uterine prolapse CBC/BMP: 08/17/16 0536 08/19/16 0830 Significant Findings Laboratory Tests Test 08/19/16 08:30 Chloride Level 115 MEQ/L (98-107) Carbon Dioxide Level 19.8 MEQ/L (21.0-32.0) Blood Urea Nitrogen 26 MG/DL (7-18) Estimat Glomerular Filtration 57 ML/MIN (>89) Rate Calcium Level 7.7 MG/DL (8.5-10.1) PE at Discharge GENERAL: SKIN: Warm and dry. ulcers b LE's HEAD: Atraumatic. Normocephalic. EYES: Pupils equal and round. No scleral icterus. No injection or drainage. ENT: No nasal bleeding or discharge. Mucous membranes pink and moist. NECK: Trachea midline. No JVD. CARDIOVASCULAR: Regular rate and rhythm. RESPIRATORY: No accessory muscle use. Clear to auscultation. Breath sounds equal bilaterally. GASTROINTESTINAL: Abdomen soft, non-tender, nondistended. Hepatic and splenic margins not palpable. MUSCULOSKELETAL: Extremities without clubbing, cyanosis, or edema. No obvious deformities. NEUROLOGICAL: Awake and alert. No obvious cranial nerve deficits. Motor grossly within normal limits. 1 out of 5 muscle strength in the arms and legs. Normal speech. PSYCHIATRIC: Appropriate mood and affect; insight and judgment normal. Hospital Course 61 y CF, admit with - 1. Cirrhosis with ascites, risk of developing Spontaneous bacterial peritonitis. 2. Lupus. 3. Mixed connective tissue disease. 4. CREST syndrome. 5. Hypernatremia 6. Hypokalemia 7. Esophageal varices. 8. Peripheral vascular disease. 9. Venostasis ulcers. 10. Scleroderma. 11. Iron-deficiency anemia. 12. History of MRSA of the right lower extremity. 13. History of sepsis. Hospital course and plan was to - Levaquin 750 daily and ZYVOX hold diuretics for now Gabapentin 600 mg t.i.d. Oxycodone 15 mg b.i.d. p.r.n. pain. Protonix 20 mg b.i.d. Physical therapy. General surgery consult for her umbilical hernia. Infectious disease consult for spontaneous bacterial peritonitis. Podiatry consult for her leg wounds. Wound ostomy nurse consult for leg wounds. am labs replace moose IVF's PT understands she will need hospice soon and she is currently hospice appropriate, yet she would like one last effort at SNF. Organizing SNF Discharge Instructions New Medications: Dexamethasone (Dexamethasone) 4 Mg Tab 4 MG PO BID LUPS #60 Ref 11 TAB Doxycycline Hyclate (Doxycycline Hyclate) 100 Mg Cap 100 MG PO BID Infection #20 Ref 0 CAP Lorazepam (Ativan) 0.5 Mg Tab 0.5 MG PO Q6H PRN ANXIETY AND/OR AGITATION #60 Ref 5 TAB Oxycodone (Oxycodone) 15 Mg Tab 15 MG PO Q4H PRN PAIN #180 Ref 0 TAB Levofloxacin (Levaquin) 500 Mg Tab 500 MG PO DAILY pna Days 10 TAB Continued Medications: Albuterol 18 GM Inh (Ventolin Hfa 18 GM Inh) 90 Mcg/Act Aer 2 PUFF INH Q4-6H PRN SHORTNESS OF BREATH #1 Ref 0 INHALER Gabapentin Liq (Neurontin Liq) 250 Mg/5 Ml Soln 600 MG PO TID Neuropathy Ref 0 ML Discontinued Medications: Furosemide (Furosemide) 40 Mg Tab 40 MG PO DAILY Fluid Overload Ref 0 TAB Levofloxacin (Levofloxacin) 750 Mg Tab 750 MG PO DAILY Infection Ref 0 TAB Oxycodone (Oxycodone) 15 Mg Tab 15 MG PO BID PRN PAIN #60 Ref 0 TAB Pantoprazole (Protonix) 20 Mg Tab 20 MG PO BID GERD Ref 0 TAB Potassium Chloride ER (Klor-Con 10) 10 Meq Tab 10 MEQ PO DAILY four tabs daily for two days then continue one tab daily Electrolyte Replacement Days 90 Ref 0 TAB Spironolactone (Spironolactone) 25 Mg Tab 25 MG PO BIDPC edema #180 Ref 11 TAB Steven Navarro MD August 20, 2016 10:23
[2016-08-20] MEDS ORDERED: LORA-392 PO (10:28)
[2016-08-20] MEDS ORDERED: LEVA500T PO (10:28)
[2016-08-20] MEDS ORDERED: OXYC15TA PO (10:28)
[2016-08-20] MEDS ORDERED: DOXY100C PO (10:28)
--- NOTE | 2016-08-20 10:28 | HHI.DCPOC ---
Discharge Care Plan Diagnosis: (1) Cirrhosis (2) Peripheral neuropathy (3) Peripheral vascular disease (4) Foot ulcer (5) Lupus (systemic lupus erythematosus) (6) CREST (calcinosis, Raynaud's phenomenon, esophageal dysfunction, sclerodactyly, telangiectasia) (7) Venous stasis ulcer (8) Scleroderma Goals to Promote Your Health * To prevent worsening of your condition and complications * To maintain your health at the optimal level Directions to Meet Your Goals Take your medications as prescribed Follow your dietary instruction Follow activity as directed Keep your appointments as scheduled Take your immunizations and boosters as scheduled If your symptoms worsen call your PCP, if no PCP go to Urgent Care Center or Emergency Room Smoking is Dangerous to Your Health. Avoid second hand smoke Call the 24-hour hour crisis hotline for domestic abuse at Steven Navarro MD August 20, 2016 10:28
[2016-08-20] MEDS ORDERED: DEXA4TAB PO (10:32)
[2016-08-20 11:15] LABS: BICARBONATE 14.3 MEQ/L (21.0-32.0); POTASSIUM 4.8 MEQ/L (3.5-5.1)
[2016-08-20 12:00] VITALS: BP 90/53; PULSE 85; RESP 20; TEMP 97.7; O2SAT 98
== END 2016-08-20 17:01 | DRG 432 ==
LOC: NEPD 12:25 → NEDA 15:30 → N07B 22:46 → HIME 08-17 00:40 → N04A 08-17 21:19
PROVIDERS: ADMIT Family Medicine; ATTEND Family Medicine
DX: K74.60 Unspecified cirrhosis of liver (principal); E43 Unspecified severe protein-calorie malnutrition; J18.9 Pneumonia, unspecified organism; R64 Cachexia; D61.818 Other pancytopenia; R18.8 Other ascites; I87.312 Chronic venous hypertension (idiopathic) with ulcer of left lower extremity; L03.115 Cellulitis of right lower limb; L97.819 Non-pressure chronic ulcer of other part of right lower leg with unspecified severity; M35.1 Other overlap syndromes; Z68.1 Body mass index [BMI] 19.9 or less, adult; M32.9 Systemic lupus erythematosus, unspecified; M34.1 CR(E)ST syndrome; L97.522 Non-pressure chronic ulcer of other part of left foot with fat layer exposed; E87.6 Hypokalemia; D50.9 Iron deficiency anemia, unspecified; K42.9 Umbilical hernia without obstruction or gangrene; R53.1 Weakness; R33.9 Retention of urine, unspecified; E86.0 Dehydration; I73.9 Peripheral vascular disease, unspecified; I10 Essential (primary) hypertension; G62.9 Polyneuropathy, unspecified; Z86.14 Personal history of Methicillin resistant Staphylococcus aureus infection; Z88.1 Allergy status to other antibiotic agents; Z88.2 Allergy status to sulfonamides; Z88.8 Allergy status to other drugs, medicaments and biological substances; Z66 Do not resuscitate
CPT/HCPCS: 71010; 74177; 76937; 80048; 80053; 82040; 82550; 83735; 84155; 85025; 85610; 85730; 87040; 87641; 93005; J0878; J1940; J1956; J3480; J7040; J7042; J7050; P9047; Q9967

== ENCOUNTER 2016-09-01 13:13 | Emergency (ER) | payer MEDICARE ==
[~2016-09-01 13:13] MED LIST changes: +DEXA4TAB PO; +DOXY100C PO; -FURO40TA PO; +LEVA500T PO; -LEVO750T33 PO; -LINE1TAB PO; +LORA-392 PO; -PANT20 PO; -POTA-243 PO; -PRED20 PO; -SPIR25TA PO
[2016-09-01] MEDS ORDERED: SODIUM CHLOR 0.9% 1000 ML INJ 1,000 ML IV SCH (13:39)
[2016-09-01] MEDS ORDERED: SODIUM CHLORIDE 0.9% FLUSH 10 ML FLUSH IVF PRN (13:45)
[2016-09-01] MEDS ORDERED: PANTOPRAZOLE INJ 80 MG in SODIUM CHLORIDE 0.9% INJ 35 ML IV ONE (13:45)
[2016-09-01] MEDS ORDERED: PANTOPRAZOLE INJ 80 MG in SODIUM CHLORIDE 0.9% INJ 100 ML IV SCH (13:45)
--- NOTE | 2016-09-01 14:01 | PD ---
HPI Chief Complaint: Altered Mental Status Time Seen by Provider: 13:30 Travel History International Travel<30 days: No Contact w/Intl Traveler<30days: No Traveled to known affect area: No History of Present Illness HPI Patient is a 61-year-old female with a history of end-stage liver disease, ascites, peripheral vascular disease, generalized muscle weakness, polyneuropathy, lupus, hypertension, lower extremity ulcers, MRSA, difficulty walking, crest syndrome, anxiety, and esophageal varices was sent to the emergency department from [facility] after being found to have "change in mental status, difficulty swallowing, and at times rolling eyes back" per documentation sent with patient's. Patient is currently nonverbal, but tries to speak. Patient will open her eyes when asked and is responsive to painful stimuli. Patient's daughter Shy, who reports being power of ice cream freezer assistant for the patient,. Reports that over the past 2 weeks and mother is lost approximately 40 pounds and has been deteriorating. States that her mother is a DNR and does not wish to have any type of chest compression or intubation attempted if she were to code, but is okay with having a facemask for oxygen and any medications pushed that may help resuscitate her. Daughter states that she got a phone call last night after leaving rehabilitation center that her mother had an episode of coffee-ground emesis and then another phone call today saying that she was more altered. Daughter states that her mother and her previously talked about hospice palliative care but at the time her mother wanted to try for rehabilitation first. At this time daughter is not wanting to make a decision on hospice and is wanting continued medical intervention. PFSH Past Medical History Autoimmune Disease: Yes (vasculitis) Anxiety: No Depression: No Heart Rhythm Problems: No Cancer: No Cardiovascular Problems: No High Cholesterol: No Chest Pain: No Congestive Heart Failure: No Cirrhosis: Yes Cerebrovascular Accident: No Diabetes: No Diminished Hearing: No Endocrine: No Gastrointestinal Disorders: Yes GERD: Yes Genitourinary: No Headaches: No Hepatitis: No Hiatal Hernia: No Immune Disorder: Yes (LUPUS, CREST) Kidney Stones: No Musculoskeletal: Yes (TENDONITIS, CREST) Neurologic: Yes (NEUROPATHY LEFT LEG, PINKY FINGERS AND RING FINGERS) Psychiatric: No Reproductive: No Respiratory: Yes (PNEUMONIA / BRONCHITIS) Migraines: No Renal Failure: Yes Seizures: No Thyroid Disease: No Ulcer: No Menopausal: Yes Past Surgical History Abdominal Surgery: No AICD: No Cardiac Surgery: No Endocrine Surgery: No Genitourinary Surgery: No Joint Replacement: No Oral Surgery: Yes (ESOPHAGEAL SX? T&A) Pacemaker: No Thoracic Surgery: No Tonsillectomy: Yes Other Surgery: Yes (tonsilectomy) Social History Alcohol Use: No Tobacco Use: No Substance Use: No Allergies-Medications (Allergen,Severity, Reaction): Coded Allergies: Vancomycin (Verified Allergy, Severe, HIVES, 08/13/16) Cleocin (Verified Allergy, Intermediate, loose stool and diarrhea, 08/13/16 ) Minipress (Verified Allergy, Mild, ANXIETY, 08/13/16) Sulfa (Verified Allergy, Unknown, UNKNOWN, 08/13/16) Rocephin (Verified Adverse Reaction, Mild, ANXIETY, 08/13/16) *MDRO Multi-Drug Resistant Organism (Verified Adverse Reaction, Unknown, ESBL, MRSA, 08/19/16) ESBL+Klebsiella Pneumoniae (leg) - 01/18/16 MRSA PCR Screens NEGATIVE - 08/15/16, 08/17/16 MRSA (leg wound) - 10/05/2015, Reported Meds & Prescriptions Reported Meds & Active Scripts Active Oxycodone (Oxycodone HCl) 15 Mg Tab 15 Mg PO Q4H PRN Ativan (Lorazepam) 0.5 Mg Tab 0.5 Mg PO Q6H PRN Ventolin Hfa 18 GM Inh (Albuterol Sulfate) 90 Mcg/Act Aer 2 Puff INH Q4-6H PRN Reported Zinc Sulfate 220 Mg Tab 220 Mg PO DAILY 14 Days Vitamin C (Calcium Ascorbate) 500 Mg Tab 500 Mg PO BID Sodium Chloride Inj (Sodium Chloride) 0.9 % Inj 10 Ml IV Q8HR Sodium Chloride Inj (Sodium Chloride) 0.45 % Inj IV DAILY Sodium Chloride Soln 0.45% @ 75ml/hr up at 1900, down at 0700 Santyl Topical (Collagenase) 250 Unit/Gm Oint 1 Applic TOPICAL DAILY Apply to rt dorsal foot wound and rt lateral ankle wound after nss wash, apply skin prep around wound and cover w/4x4, wrap with shante Multi-Vitamin/Minerals (Multiple Vitamins W/ Minerals) 1 Tab Tab 1 Tab PO DAILY Levaquin (Levofloxacin) 250 Mg Tab 250 Mg PO Q48H PRN Stop date:09/04/2016 Duoneb (Ipratropium-Albuterol Neb) 0.5-2.5 Mg/3 Ml Neb 3 Ml NEB QID Doxycycline Monohydrate (Doxycycline (Monohydrate)) 100 Mg Cap 100 Mg PO BID Review of Systems Except as stated in HPI: all other systems reviewed are Neg Physical Exam Narrative GENERAL: Well-developed, cachectic, in no acute distress, and ill appearing, but nontoxic. SKIN: States she is sacral decubitus ulcer noted. Yeast infection noted in the vaginal area with scant amount of blood coming from the vaginal vault this was noted by RN while placing Ceballos catheter. HEAD: Atraumatic. Normocephalic. EYES: Pupils equal and round. EOMI. No scleral icterus. No injection or drainage. ENT: No nasal bleeding or discharge. Mucous membranes pink and moist. NECK: Trachea midline. No JVD. CARDIOVASCULAR: Tachycardia rate and regular rhythm. No murmur appreciated. RESPIRATORY: No accessory muscle use. No respiratory distress. Clear to auscultation. Breath sounds equal bilaterally. GASTROINTESTINAL: Abdomen soft, non-tender, nondistended. Hepatic and splenic margins not palpable. Normal bowel sounds 4. No pulsatile mass. Bag in place over her umbilical hernia to catch ascites fluid. MUSCULOSKELETAL: No obvious deformities. No clubbing. No cyanosis. Edema right upper extremity. NEUROLOGICAL: Awake and alert. No obvious cranial nerve deficits. Data Data Last Documented VS Vital Signs Date Time Temp Pulse Resp B/P Pulse Ox O2 Delivery O2 Flow Rate FiO2 09/01/16 14:46 130 20 86/51 Nasal Cannula 09/01/16 13:39 100 2 Orders Complete Blood Count With Diff (09/01/16 13:39) Comprehensive Metabolic Panel (09/01/16 13:39) Lipase (09/01/16 13:39) Ammonia (09/01/16 13:39) Prothrombin Time / Inr (Pt) (09/01/16 13:39) Act Partial Throm Time (Ptt) (09/01/16 13:39) Urinalysis - C+S If Indicated (09/01/16 13:39) Type And Screen (09/01/16 13:39) Chest, Single Ap (09/01/16 13:39) Ecg Monitoring (09/01/16 13:39) Iv Access Insert/Monitor (09/01/16 13:39) Oximetry (09/01/16 13:39) Urinary Catheter Insert/Apply (09/01/16 13:39) Sodium Chlor 0.9% 1000 Ml Inj (Ns 1000 M (09/01/16 13:39) Sodium Chloride 0.9% Flush (Ns Flush) (09/01/16 13:45) Pantoprazole Inj (Protonix Inj) (09/01/16 13:45) Pantoprazole Inj (Protonix Inj) (09/01/16 13:45) Electrocardiogram (09/01/16 ) Ct Abd/Pel W/O Iv Contrast (09/01/16 14:04) Lactic Acid Sepsis Protocol (09/01/16 14:24) Blood Culture (09/01/16 14:24) Piperacil-Tazo 4.5 Gm Premix (Zosyn 4.5 (09/01/16 14:24) Sodium Chlor 0.9% 1000 Ml Inj (Ns 1000 M (09/01/16 14:30) Linezolid 600 Mg Premix (Zyvox 600 Mg Pr (09/01/16 14:30) Urine Culture (09/01/16 13:48) Us Arm Venous Doppler (09/01/16 14:35) Admit Order (Ed Use Only) (09/01/16 15:22) Labs Laboratory Tests Test 09/01/16 09/01/16 09/01/16 13:46 13:48 14:44 White Blood Count 19.0 TH/MM3 Red Blood Count 3.40 MIL/MM3 Hemoglobin 9.6 GM/DL Hematocrit 29.9 % Mean Corpuscular Volume 88.1 FL Mean Corpuscular Hemoglobin 28.3 PG Mean Corpuscular Hemoglobin 32.2 % Concent Red Cell Distribution Width 19.6 % Platelet Count 53 TH/MM3 Mean Platelet Volume 9.4 FL Neutrophils (%) (Auto) 82.1 % Lymphocytes (%) (Auto) 14.0 % Monocytes (%) (Auto) 3.3 % Eosinophils (%) (Auto) 0.5 % Basophils (%) (Auto) 0.1 % Neutrophils # (Auto) 15.6 TH/MM3 Lymphocytes # (Auto) 2.7 TH/MM3 Monocytes # (Auto) 0.6 TH/MM3 Eosinophils # (Auto) 0.1 TH/MM3 Basophils # (Auto) 0.0 TH/MM3 CBC Comment AUTO DIFF Differential Comment AUTO DIFF CONFIRMED Platelet Estimate LOW Platelet Morphology Comment NORMAL Ovalocytes 1+ Keratocytes 1+ Prothrombin Time 16.8 SEC Prothromb Time International 1.5 RATIO Ratio Activated Partial 42.6 SEC Thromboplast Time Sodium Level 150 MEQ/L Potassium Level 4.8 MEQ/L Chloride Level 123 MEQ/L Carbon Dioxide Level 14.2 MEQ/L Anion Gap 13 MEQ/L Blood Urea Nitrogen 140 MG/DL Creatinine 2.51 MG/DL Random Glucose 73 MG/DL Calcium Level 9.2 MG/DL Total Bilirubin 2.1 MG/DL Aspartate Amino Transf 82 U/L (AST/SGOT) Alanine Aminotransferase 27 U/L (ALT/SGPT) Alkaline Phosphatase 162 U/L Ammonia 25 MCMOL/L Total Protein 4.9 GM/DL Albumin 2.4 GM/DL Lipase 65575 U/L Urine Color YELLOW Urine Turbidity CLOUDY Urine pH 5.0 Urine Specific [place] 1.015 Urine Protein TRACE mg/dL Urine Glucose (UA) NEG mg/dL Urine Ketones NEG mg/dL Urine Occult Blood NEG Urine Nitrite NEG Urine Bilirubin NEG Urine Urobilinogen LESS THAN 2.0 MG/DL Urine Leukocyte Esterase NEG Urine RBC 1 /hpf Urine WBC 9 /hpf Urine Calcium Oxalate Crystals OCC /hpf Urine Amorphous Sediment RARE Urine Bacteria OCC /hpf Urine Hyaline Casts 140 /lpf Urine Mucus MANY /lpf Microscopic Urinalysis Comment CULTURE INDICATED Lactic Acid Level 3.2 mmol/L MDM Medical Decision Making Medical Screen Exam Complete: Yes Emergency Medical Condition: Yes Medical Record Reviewed: Yes Interpretation(s) Ultrasound of the right upper extremity revealed the radiologist shows: Deep venous thrombosis proximal brachial vein. Limited exam because of pain and bandage. Chest x-ray read by radiologist shows: Right upper and right lower lobe atelectasis. CT abdomen and pelvis read by radiologist shows: Limited exam because of lack of oral intravenous contrast. Moderate airspace disease is present in the lung base is worse on the right. The liver is small with prominent spleen. Trace ascites is evident. These findings suggest diffuse hepatocellular disease. Exam is severely limited by lack of oral and intravenous contrast. There is no definite free air. Differential Diagnosis Altered mental status, sepsis, likely abnormality, UTI, pneumonia, GI bleed, other Narrative Course Patient was seen and examined. Discussed patient with patient's medical proxy, her daughter Shy, who is wanting patient continue treated medically does not want any chest compressions or intubation per her mother's request and DNR form. Labs were obtained and reviewed. Reflexes were obtained and reviewed. Patient is positive for blood on Hemoccult. Patient was given IV fluid, IV antibiotics, and Protonix. Discussed patient with the hospitalist who is uncomfortable taking the patient feels the patient may benefit from pressors and wants patient admitted to the intensive this. I discussed this with Dr. Shrestha, who spoke with the painting machine operator who is agreeable to admit the patient. Please her documentation for further details. HemaPrompt Point of Care Internal Pos. & Neg. Controls: Passed Fecal Specimen Occult Blood: Positive Comment Verbal consent was obtained. Digital rectal exam was performed. Stool specimen applied and test interpreted between 1 and 3 minutes of application and the result was positive. Internal Controls: Both positive and negative controls were validated. skill labor Hoda was present during this exam. Sepsis Criteria SIRS Criteria (2 or more): Heart rate over 90, WBC > 90408, < 4000 or > 10% bands Sepsis Criteria (SIRS+source): Infect source susp/known Severe Sepsis (+one): Hypotension, Lactate >2 Physician Communication Physician Communication [address] Lau, feels the patient may benefit from pressors and recommends patient be admitted to the painting machine operator. Diagnosis Primary Impression: Severe sepsis Additional Impressions: GI bleed Qualified Code: K92.2 - Gastrointestinal hemorrhage, unspecified gastrointestinal hemorrhage type Severe dehydration Renal failure Qualified Code: N17.9 - Acute renal failure, unspecified acute renal failure type Urinary tract infection Qualified Code: N39.0 - Urinary tract infection without hematuria, site unspecified DVT (deep venous thrombosis) Qualified Code: I82.621 - Acute deep vein thrombosis (DVT) of right upper extremity, unspecified vein Cirrhosis Qualified Code: K74.60 - Cirrhosis of liver with ascites, unspecified hepatic cirrhosis type Admitting Information Admitting Physician Requests: Admit Condition: Stable Aidan Malone September 01, 2016 14:01
--- NOTE | 2016-09-01 14:09 | RADRPT ---
EXAM DATE/TIME: 09/01/2016 13:52 [facility] COMPARISON: CHEST SINGLE AP, August 14, 2016, 14:41. INDICATIONS : Nausea and vomiting. MEDICAL HISTORY : Peripheral vascular disease. Cirrhosis. SURGICAL HISTORY : None. ENCOUNTER: Initial ACUITY: 1 day PAIN SCORE: Non-responsive. LOCATION: Bilateral chest FINDINGS: A single view of the chest demonstrates mild loss of the right. Minimal right upper lobe and right lo wer lobe density. Left lung clear. Heart normal in size. Osseous structures are intact. CONCLUSION: Right upper and right lower lobe atelectasis. Floyd Naqvi MD on September 01, 2016 at 14:07 Board Certified Radiologist. This report was verified electronically.
[2016-09-01 14:11] LABS: AUTOMATED NEUTROPHIL # 15.6 TH/MM3 (1.8-7.7); BASOPHIL % 0.1 % (0.0-2.0); EOSINOPHIL # 0.1 TH/MM3 (0-0.4); EOSINOPHIL % 0.5 % (0.0-4.0); HEMATOCRIT 29.9 % (35.0-46.0); LYMPHOCYTE # 2.7 TH/MM3 (1.0-4.8); MEAN CELL VOLUME 88.1 FL (80.0-100.0); MEAN CORPUSCULAR HEMOGLOBIN 28.3 PG (27.0-34.0); MEAN CORPUSCULAR HGB CONC 32.2 % (32.0-36.0); MONO % 3.3 % (0.0-8.0); NEUT % 82.1 % (16.0-70.0); PLATELET COUNT 53 TH/MM3 (150-450); RED CELL DISTRIBUTION WIDTH 19.6 % (11.6-17.2)
[2016-09-01 14:14] LABS: HEMO FLAGS AUTO DIFF
[2016-09-01] MEDS ORDERED: VITA-83 PO (14:17)
[2016-09-01] MEDS ORDERED: IPRASOL NEB (14:17)
[2016-09-01] MEDS ORDERED: MULTTAB62 PO (14:17)
[2016-09-01] MEDS ORDERED: ZINC220T PO (14:17)
[2016-09-01] MEDS ORDERED: COLL30T TOPICAL (14:17)
[2016-09-01] MEDS ORDERED: DOXY100C35 PO (14:17)
[2016-09-01] MEDS ORDERED: LEVA250T PO (14:17)
[2016-09-01] MEDS ORDERED: [UNRECOGNIZED DRUG - CODE] IV (14:17)
[2016-09-01] MEDS ORDERED: SODI0.9I IV (14:17)
[2016-09-01 14:20] LABS: APTT (PATIENT) 42.6 SEC (24.3-30.1); INTERNATIONAL NORMALIZED RATIO 1.5 RATIO; PROTHROMBIN TIME - PATIENT 16.8 SEC (9.8-11.6)
[2016-09-01] MEDS ORDERED: PIPERACIL-TAZO 4.5 GM PREMIX 100 ML IV STA (14:24)
[2016-09-01 14:28] LABS: ALT (GPT) 27 U/L (10-53); ANION GAP 13 MEQ/L (5-15); AST (GOT) 82 U/L (15-37); BICARBONATE 14.2 MEQ/L (21.0-32.0); BLOOD UREA NITROGEN 140 MG/DL (7-18); CHLORIDE 123 MEQ/L (98-107); POTASSIUM 4.8 MEQ/L (3.5-5.1); SODIUM (NA) 150 MEQ/L (136-145)
[2016-09-01 14:29] LABS: BACTERIA, URINE OCC /hpf; BLOOD, URINE NEG (NEG); CALCIUM OXALATE CRYSTALS,URINE OCC /hpf; COMMENT (UR) CULTURE INDICATED; CULTURE IF INDICATED CULTURE INDICATED; GLUCOSE,URINE NEG (NEG); HYALINE CAST, URINE 140 /lpf (RARE); KETONE, URINE NEG (NEG); MUCUS URINE MANY /lpf (OCC); NITRITE,URINE NEG (NEG); URINE COLOR YELLOW (YELLW/STRAW)
[2016-09-01 14:30] LABS: ALKALINE PHOSPHATASE 162 U/L (45-117); TOTAL BILIRUBIN ADULT 2.1 MG/DL (0.2-1.0)
[2016-09-01] MEDS ORDERED: SODIUM CHLOR 0.9% 1000 ML INJ 1,000 ML IV ONE (14:30)
[2016-09-01] MEDS ORDERED: LINEZOLID 600 MG PREMIX 300 ML IV ONE (14:30)
[2016-09-01 14:42] LABS: KERATOCYTES 1+ (NORMAL)
[2016-09-01 14:43] LABS: OVALOCYTES 1+ (NORMAL); PLATELET ESTIMATE SMEAR LOW (NORMAL); PLATELET MORPHOLOGY NORMAL (NORMAL); SCAN/DIFF AUTO DIFF CONFIRMED
[2016-09-01 14:46] VITALS: BP 86/51; PULSE 130; RESP 20
--- NOTE | 2016-09-01 15:07 | RADRPT ---
EXAM DATE/TIME: 09/01/2016 14:02 [facility] COMPARISON: No previous studies available for comparison. INDICATIONS : Right arm pain. MEDICAL HISTORY : End stage liver disease. PVD. Polyneuropathy. Hypertension. Lupus. SURGICAL HISTORY : Tonsillectomy. ENCOUNTER: Initial ACUITY: 1 day PAIN SCORE: Non-responsive LOCATION: Right arm. FINDINGS: Exam is very limited because of pain There is occlusive thrombus in the proximal brachial vein. The axillary vein appears patent. Limite d views of the cephalic vein show patency.. CONCLUSION: Deep venous thrombosis proximal brachial vein. Limited exam because of pain and bandage. Bill Jackson MD FACR on September 01, 2016 at 15:03 Board Certified Radiologist. This report was verified electronically.
--- NOTE | 2016-09-01 15:14 | RADRPT ---
EXAM DATE/TIME: 09/01/2016 14:54 [facility] COMPARISON: No previous studies available for comparison. INDICATIONS : Nausea, vomiting and blood in stool today. ORAL CONTRAST: No oral contrast ingested. RADIATION DOSE: 9.96 CTDIvol (mGy) MEDICAL HISTORY : Cirrhosis. Gastroesophageal reflux disease. deep vein thrombosis, lupus, renal failure SURGICAL HISTORY : None. ENCOUNTER: Initial ACUITY: 1 day PAIN SCALE: Non-responsive LOCATION: Bilateral abdomen TECHNIQUE: Volumetric scanning of the abdomen and pelvis was performed. Using automated exposure control and ad justment of the mA and/or kV according to patient size, radiation dose was kept as low as reasonably achievable to obtain optimal diagnostic quality images. FINDINGS: LOWER LUNGS: Patchy airspace disease is present in both lung base is worse on the right suspicious for an inflamma tory process. LIVER: Small and shrunken suggesting hepatocellular disease. SPLEEN: Prominent in size PANCREAS: Scattered calcifications suggesting chronic pancreatitis KIDNEYS: Normal in size and shape. There is no mass, stone, or hydronephrosis. ADRENAL GLANDS: Within normal limits. VASCULAR: Moderate calcifications are noted. BOWEL/MESENTERY: Limited visualization secondary to body habitus and size. No acute abnormality. ABDOMINAL WALL: Within normal limits. RETROPERITONEUM: There is no lymphadenopathy. BLADDER: No wall thickening or mass. Moderate ascites is noted. REPRODUCTIVE: Within normal limits. INGUINAL: There is no lymphadenopathy or hernia. MUSCULOSKELETAL: Within normal limits for patient age. CONCLUSION: Limited exam because of lack of oral intravenous contrast. Moderate airspace disease is present in t he lung base is worse on the right. The liver is small with prominent spleen. Trace ascites is evid ent. These findings suggest diffuse hepatocellular disease. Exam is severely limited by lack of oral and intravenous contrast. There is no definite free air. Bill Jackson MD FACR on September 01, 2016 at 15:08 Board Certified Radiologist. This report was verified electronically.
--- NOTE | 2016-09-01 15:25 | PD ---
Physical Exam Date Seen by Provider: September 01, 2016 Time Seen by Provider: 15:21 Narrative 61-year-old female patient is in her terminal condition from end-stage liver disease. Patient has altered mental status. Unable to communicate with. She was seen by the PA and I'm supervising him. Patient is hypotensive and GI bleed. She is septic as well. Based on the tests that were done she has a right upper extremity DVT. At this point she is unable to receive any anticoagulants given her GI bleed. The PA spoke with her daughter who is her healthcare proxy. As per her she wants the patient to stay alive for the next 24 hours since her sister is on her way to see her. She does not want any chest compressions or intubation. Patient is a DNR. I could not speak with the daughter yet since by the time I went to see her and speak with her she had left to take her own daughter back home. She'll be returning back. The PA discussed the case with the hospitalist who is uncomfortable taking care of her. He requested mammal keeper. Spoke with Dr. Ding from ICU. He agrees that the patient should not be started on any pressors given her futile terminal condition. He will try to speak with the healthcare proxy and see if he could convince her to have her mother [facility] hospice care. Data Data Last Documented VS Vital Signs Date Time Temp Pulse Resp B/P Pulse Ox O2 Delivery O2 Flow Rate FiO2 09/01/16 14:46 130 20 86/51 Nasal Cannula 09/01/16 13:39 100 2 Orders Complete Blood Count With Diff (09/01/16 13:39) Comprehensive Metabolic Panel (09/01/16 13:39) Lipase (09/01/16 13:39) Ammonia (09/01/16 13:39) Prothrombin Time / Inr (Pt) (09/01/16 13:39) Act Partial Throm Time (Ptt) (09/01/16 13:39) Urinalysis - C+S If Indicated (09/01/16 13:39) Type And Screen (09/01/16 13:39) Chest, Single Ap (09/01/16 13:39) Ecg Monitoring (09/01/16 13:39) Iv Access Insert/Monitor (09/01/16 13:39) Oximetry (09/01/16 13:39) Urinary Catheter Insert/Apply (09/01/16 13:39) Sodium Chlor 0.9% 1000 Ml Inj (Ns 1000 M (09/01/16 13:39) Sodium Chloride 0.9% Flush (Ns Flush) (09/01/16 13:45) Pantoprazole Inj (Protonix Inj) (09/01/16 13:45) Pantoprazole Inj (Protonix Inj) (09/01/16 13:45) Electrocardiogram (09/01/16 ) Ct Abd/Pel W/O Iv Contrast (09/01/16 14:04) Lactic Acid Sepsis Protocol (09/01/16 14:24) Blood Culture (09/01/16 14:24) Piperacil-Tazo 4.5 Gm Premix (Zosyn 4.5 (09/01/16 14:24) Sodium Chlor 0.9% 1000 Ml Inj (Ns 1000 M (09/01/16 14:30) Linezolid 600 Mg Premix (Zyvox 600 Mg Pr (09/01/16 14:30) Urine Culture (09/01/16 13:48) Us Arm Venous Doppler (09/01/16 14:35) Red Blood Cells (Rbc) (09/01/16 15:10) AGID (09/01/16 15:10) Labs Laboratory Tests Test 09/01/16 09/01/16 09/01/16 09/01/16 13:46 13:48 14:44 15:10 White Blood Count 19.0 TH/MM3 Red Blood Count 3.40 MIL/MM3 Hemoglobin 9.6 GM/DL Hematocrit 29.9 % Mean Corpuscular Volume 88.1 FL Mean Corpuscular Hemoglobin 28.3 PG Mean Corpuscular Hemoglobin 32.2 % Concent Red Cell Distribution Width 19.6 % Platelet Count 53 TH/MM3 Mean Platelet Volume 9.4 FL Neutrophils (%) (Auto) 82.1 % Lymphocytes (%) (Auto) 14.0 % Monocytes (%) (Auto) 3.3 % Eosinophils (%) (Auto) 0.5 % Basophils (%) (Auto) 0.1 % Neutrophils # (Auto) 15.6 TH/MM3 Lymphocytes # (Auto) 2.7 TH/MM3 Monocytes # (Auto) 0.6 TH/MM3 Eosinophils # (Auto) 0.1 TH/MM3 Basophils # (Auto) 0.0 TH/MM3 CBC Comment AUTO DIFF Differential Comment AUTO DIFF CONFIRMED Platelet Estimate LOW Platelet Morphology Comment NORMAL Ovalocytes 1+ Keratocytes 1+ Prothrombin Time 16.8 SEC Prothromb Time International 1.5 RATIO Ratio Activated Partial 42.6 SEC Thromboplast Time Sodium Level 150 MEQ/L Potassium Level 4.8 MEQ/L Chloride Level 123 MEQ/L Carbon Dioxide Level 14.2 MEQ/L Anion Gap 13 MEQ/L Blood Urea Nitrogen 140 MG/DL Creatinine 2.51 MG/DL Random Glucose 73 MG/DL Calcium Level 9.2 MG/DL Total Bilirubin 2.1 MG/DL Aspartate Amino Transf 82 U/L (AST/SGOT) Alanine Aminotransferase 27 U/L (ALT/SGPT) Alkaline Phosphatase 162 U/L Ammonia 25 MCMOL/L Total Protein 4.9 GM/DL Albumin 2.4 GM/DL Lipase 37467 U/L Urine Color YELLOW Urine Turbidity CLOUDY Urine pH 5.0 Urine Specific [place] 1.015 Urine Protein TRACE mg/dL Urine Glucose (UA) NEG mg/dL Urine Ketones NEG mg/dL Urine Occult Blood NEG Urine Nitrite NEG Urine Bilirubin NEG Urine Urobilinogen LESS THAN 2.0 MG/DL Urine Leukocyte Esterase NEG Urine RBC 1 /hpf Urine WBC 9 /hpf Urine Calcium Oxalate Crystals OCC /hpf Urine Amorphous Sediment RARE Urine Bacteria OCC /hpf Urine Hyaline Casts 140 /lpf Urine Mucus MANY /lpf Microscopic Urinalysis Comment CULTURE INDICATED Lactic Acid Level 3.2 mmol/L Blood Type O POSITIVE Antibody Screen POSITIVE Antigen Identification E Antigen - NEGATIVE Crossmatch Leukocyte-Reduced Red Blood Cells Blood Bank Comment MDM Supervised Visit with MARCY: Yes Interpretation(s) Twelve-lead EKG was reviewed by me. Normal sinus rhythm, tachycardia, normal axis, low voltage. Heart rate of 122 bpm. Arnulfo Shrestha MD September 01, 2016 15:25
[2016-09-01 15:59] VITALS: BP 86/46; PULSE 111; RESP 24; O2SAT 98
[2016-09-01 16:44] LABS: LACTIC ACID GHOST NOT REPORTABLE
[2016-09-01] MEDS ORDERED: ONDANSETRON HCL 4 MG/2 ML VIAL IV PUSH ONE (17:30)
[2016-09-01] MEDS ORDERED: MORPHINE SULFATE 4 MG/ML INJ IV PUSH ONE ×2 (17:30→19:00)
--- NOTE | 2016-09-01 17:45 | HHI.PR ---
Subjective Remarks This is a 61yF with long history of end-stage liver disease and multiple acute and chronic medical problems. she was recently admitted in the beginning of August , and a palliative care work-up ended with the assessment by the health care team that the patient requested to attempt to stay alive long enough to see her daughter get in October. She re-presents to the emergency department here with septic shock, altered mental status, acute active GI bleed, new DVTs. On my evaluation she is very severely ill and likely will not survive any acute hospitalization. I had a long discussion with her daughter medical decision maker Shy and the whole family understands that this is and ultimately terminal disease process and the patient is currently suffering. The family asked requests hospice inpatient services. I agree that this is the best course of action. I've contacted Dr. Gill who is agreed to accept the patient to the hospice facility. At this point, the real time analyst service will not admit the patient as an inpatient, but we recommend transfer of care to the inpatient hospice service. Reilly Allen MD September 01, 2016 17:45
--- NOTE | 2016-09-02 15:49 | EKG ---
Date Performed: 09/01/2016 Time Performed: 15:14:50 PTAGE: 61 years EKG: SINUS TACHYCARDIA NONSPECIFIC ST & T-WAVE ABNORMALITY ABNORMAL RHYTHM ECG PREVIOUS TRACING : 08/13/2016 14.59 Compared to previous tracing, sinus rate has increased. The re is baseline artifact present. ST changes are not excluded. Recommend repeat EKG. DOCTOR: Tyler Richey Interpretating Date/Time 09/02/2016 15:47:35
== END 2016-09-01 20:02 | disposition hospice, inpatient (51) ==
LOC: NEPE 13:13 → NEDA 15:24 → UNDOADMIN 15:24 → NEPE 20:02
DX: A41.9 Sepsis, unspecified organism (principal); R65.20 Severe sepsis without septic shock; K92.2 Gastrointestinal hemorrhage, unspecified; E86.0 Dehydration; N17.9 Acute kidney failure, unspecified; N39.0 Urinary tract infection, site not specified; I82.621 Acute embolism and thrombosis of deep veins of right upper extremity; K74.60 Unspecified cirrhosis of liver; R00.0 Tachycardia, unspecified; Z86.2 Personal history of diseases of the blood and blood-forming organs and certain disorders involving the immune mechanism; Z87.19 Personal history of other diseases of the digestive system; Z86.79 Personal history of other diseases of the circulatory system; Z87.39 Personal history of other diseases of the musculoskeletal system and connective tissue; Z86.69 Personal history of other diseases of the nervous system and sense organs; Z87.09 Personal history of other diseases of the respiratory system; R60.0 Localized edema
CPT/HCPCS: 51702; 71010; 74176; 80053; 81001; 82140; 83605; 83690; 85025; 85610; 85730; 86077; 86850; 86870; 86900; 86901; 86902; 86922; 87040; 87086; 93005; 93971; 96361; 96365; 96375; 99285; C9113; J2020; J2270; J2405; J2543; J7030